=== PATIENT | female | born 1940 | race Caucasian/White ===

== ENCOUNTER 2021-09-26 08:55 | Outpatient (REF) | payer MEDICARE, SELFPAY ==
[2021-09-26 11:08] LABS: Hemoglobin 14.9 g/dl (12.0-16.0); Mean Corpuscular HGB Conc 33.1 g/dl (31.0-35.0); Mean Corpuscular Hemoglobin 30.7 pg (27.0-33.0); Mean Corpuscular Volume 92.8 fL (80.0-98.0); Mean Platelet Volume 10.7 fL (9.4-12.3); Platelet Count 236 X10*3/uL (160-400); Red Blood Count 4.85 X10*6/uL (4.20-5.50); Red Cell Distribution Width 13.9 % (11.0-16.0); White Blood Count 5.5 X10*3/uL (4.8-10.8)
[2021-09-26 11:44] LABS: Alanine Aminotransferase 28 U/L (0-31); Albumin Level 4.1 g/dL (3.5-5.0); Alkaline Phosphatase 80 U/L (39-117); Anion Gap 14 (12-20); Aspartate Amino Transferase 28 U/L (5-31); Bilirubin Total 0.5 mg/dL (0.0-1.0); Blood Urea Nitrogen 20 mg/dL (9-16); Calcium 9.9 mg/dL (8.4-10.2); Carbon Dioxide 27 mmol/L (22-29); Chloride 107 mmol/L (96-108); Estimated Glomerular Filt Rate > 60; Glucose Random 90 mg/dL (60-115); Potassium 4.1 mmol/L (3.3-5.1); Sodium 144 mmol/L (135-145)
[2021-09-26 12:06] LABS: Vitamin D 25-OH Total 16.5 ng/mL (>30)
== END 2021-09-26 08:56 | disposition home or self-care (01) ==
LOC: HO.MANLDS 08:55
PROVIDERS: PCP Internal Medicine; Visit Provider Internal Medicine
DX: I10 Essential (primary) hypertension (principal)
CPT/HCPCS: 36415; 80053; 82306; 85027

== ENCOUNTER 2022-11-14 09:49 | Outpatient (REF) | payer MEDICARE, SELFPAY ==
[2022-11-14 11:38] LABS: Hematocrit 42.3 % (37.0-47.0); Mean Corpuscular HGB Conc 33.1 g/dl (31.0-35.0); Mean Corpuscular Hemoglobin 30.6 pg (27.0-33.0); Mean Corpuscular Volume 92.4 fL (80.0-98.0); Mean Platelet Volume 11.4 fL (9.4-12.3); Platelet Count 227 X10*3/uL (160-400); Red Blood Count 4.58 X10*6/uL (4.20-5.50); Red Cell Distribution Width 14.4 % (11.0-16.0); White Blood Count 6.2 X10*3/uL (4.8-10.8)
[2022-11-14 12:21] LABS: Alanine Aminotransferase 24 U/L (0-31); Alkaline Phosphatase 65 U/L (39-117); Anion Gap 12 (12-20); Aspartate Amino Transferase 25 U/L (5-31); Bilirubin Total 0.6 mg/dL (0.0-1.0); Blood Urea Nitrogen 20 mg/dL (9-16); Calcium 9.7 mg/dL (8.4-10.2); Carbon Dioxide 31 mmol/L (22-29); Chloride 106 mmol/L (96-108); Estimated Glomerular Filt Rate > 60; Glucose Random 85 mg/dL (60-115); Sodium 144 mmol/L (135-145); Total Protein 6.7 g/dL (6.5-8.0)
[2022-11-14 12:23] LABS: Thyroid Stimulating Hormone 1.53 uIU/mL (0.32-4.0); Vitamin D 25-OH Total 25.6 ng/mL (>30)
== END 2022-11-14 09:50 | disposition home or self-care (01) ==
LOC: HO.MANLDS 09:49
PROVIDERS: Visit Provider Internal Medicine
DX: I10 Essential (primary) hypertension (principal); E55.9 Vitamin D deficiency, unspecified
CPT/HCPCS: 36415; 80053; 82306; 84443; 85027

== ENCOUNTER 2023-01-18 08:34 | Outpatient (REF) | payer MEDICARE, SELFPAY ==
--- NOTE | ~2023-01-18 | MM_ITS ---
EXAMINATION: BONE DENSITOMETRY CLINICAL INDICATION: Osteopenia. COMPARISON: This is the patient's baseline examination. TECHNIQUE: Using a [employer] DXA System (software version: 13.1) manufactured by [employer], dual-energy x-ray absorptiometry was performed of the lumbar spine and left hip. The images are of good technical quality. Summary results are attached. FINDINGS: AP SPINE L1-L4: BMD 1.112 g/cm2, Z-score 0.7, T-score -0.6, normal. LEFT FEMUR, NECK: BMD 0.796 g/cm2, Z-score 0.2, T-score -1.7, osteopenia. LEFT FEMUR, TOTAL: BMD 0.821 g/cm2, Z-score 0.3, T-score -1.5, osteopenia. IDENTIFIED RISK FACTORS: Menopause, height loss. HISTORY OF FRACTURE: None listed. MEDICATIONS: Calcium, vitamin D. MM/XR DEXA axial skeleton IMPRESSION: 1. DIAGNOSIS: Osteopenia based on the lowest T-score value of -1.7 in the femoral neck applying World Health Organization criteria. 2. 10-YEAR FRACTURE RISK PREDICTION, FRAX: Major osteoporotic fracture (clinical spine, forearm, hip or shoulder) 14.1%. Hip fracture 3.9%. 3. Treatment Recommendations: NOF guidelines recommend consideration for treatment in postmenopausal women and men age 50 and older presenting with the following: -A hip or vertebral (clinical or morphometric) fracture. -T-score less than or equal to -2.5 at the femoral neck or spine after appropriate evaluation to exclude secondary causes. -Low bone mass at the hip or spine and a 10-year fracture probability by FRAX of greater than or equal to 3% for hip fracture or greater than or equal to 20% for major osteoporotic fracture based on the [place] adapted WHO algorithm. 4. Other Recommendations: All treatment decisions require clinical judgment and consideration of individual patient factors, including patient preferences, comorbidities, previous drug use, risk factors not captured in the FRAX model (e.g. frailty, falls, vitamin D deficiency, increased bone turnover, interval significant decline in bone density) and possible under or overestimation of fracture risk by FRAX. Additional medical evaluation for secondary cause of low bone mineral density may be appropriate. FUTURE SCAN RECOMMENDATION: People with diagnosed cases of osteoporosis or at high risk for fracture should have regular bone mineral density tests. For patients eligible for Medicare, routine testing is allowed once every 2 years. The testing frequency can be increased to one year for patients who have rapidly progressing disease, those who are receiving or discontinuing medical therapy to restore bone mass, or have additional risk factors.
== END 2023-01-18 08:35 | disposition home or self-care (01) ==
LOC: HO.MAMMO 08:34
PROVIDERS: PCP Internal Medicine; Visit Provider Internal Medicine
DX: Z13.820 Encounter for screening for osteoporosis (principal); Z78.0 Asymptomatic menopausal state; M85.80 Other specified disorders of bone density and structure, unspecified site
CPT/HCPCS: 77080

== ENCOUNTER → 2023-01-28 09:34 | Outpatient (REF) | payer MEDICARE, SELFPAY ==
--- NOTE | 2023-01-28 09:40 | CA_ITS ---
Transthoracic Echocardiogram Patient (Last, First, Middle): Kathi Chan M Gender: Female Date of : 1940 Age: 82 Procedure Date: 01/28/2023 Procedure Type: Transthoracic Echocardiogram Location: OP Height: 162.56 cm Weight: 82.56 kg BSA: 1.88 m2 Heart Rate: 63 bpm BP: 135 / 80 mmHg Employee Development Manager: KWAME Referring MD: Ranjit Stephens MD Symptoms: R06.09 DYSPNEA Study Quality: Adequate ECG Rhythm: Sinus Conclusions: - The left ventricular systolic function is normal. The visually estimated ejection fraction is between 60-65%. - There is moderate calcification of the aortic valve. There is mild to moderate aortic valve stenosis. - There is mild mitral valve regurgitation. Findings Left Ventricle Normal left ventricular cavity size. The left ventricular systolic function is normal. The visually estimated ejection fraction is between 60-65%. There is no evidence of regional wall motion abnormalities. E/E prime ratio is between 8 and 15 consistent with indeterminate filling pressures. Evidence suggests grade I (mild) diastolic dysfunction. There is moderate septal and moderate basal asymmetric hypertrophy. LV peak GLS -19.9%. Right Ventricle Normal right ventricular cavity size and systolic function. Atria Both atria are normal in size. Aortic Valve There is moderate calcification of the aortic valve. There is mild to moderate aortic valve stenosis. The mean gradient is 12 mmHg. The aortic valve area is 1.35 cm2. There is mild aortic valve regurgitation. Mitral Valve There is mild mitral annular calcification. There is mild mitral valve regurgitation. There is no mitral valve stenosis. Pulmonic Valve The pulmonic valve is likely normal. Tricuspid Valve There is mild tricuspid valve regurgitation. There is no evidence of pulmonary hypertension. Great Vessels The asc aorta is normal in size. Venous The inferior vena cava is normal in size and collapses greater than 50% with inspiration. Pericardium/Pleural There is no evidence of pericardial effusion. Prior Study Comparison No prior study available for comparison. Measurements 2D Linear Measurements IVSd: 1.22 0.6-0.9/0.6-1.0 cm LVIDd: 4.77 3.9-5.3/4.2-5.9 cm LVIDd Index: 2.54 2.4-3.2/2.2-3.1 cm/m2 LVIDs: 2.86 2.0-3.6 cm LVPWd: 1.02 0.7-1.1 cm LA Diam: 3.60 2.7-3.8/3.0-4.0 cm LAIDs Index: 1.91 1.5-2.3 cm/m2 LV Mass: 245.38 67-162/88-224 g LV Mass Index: 130.52 43-95/49-115 g/m2 LVOT Diam: 1.70 3.0+(-)1.3 cm 2D Systolic Function EF 4C: 63.30 >55% EF 2C: 72.50 >55% EF BiP: 69.90 >55% Mitral Valve MV Pk E: 0.85 MV PK A: 1.36 MV Decel Time: 286.00 E/A: 0.60 E'Lateral: 5.44 E'Medial: 5.77 E/E' Med: 14.70 E/E' Lat: 15.60 PHT: 84.00 MVA PHT: 2.62 Decel Gall[place]: 2.95 MR Alias Arnel: 0.39 MR RAD: 0.30 Aortic Valve AoV Pk Arnel: 2.28 AoV Mn Arnel: 1.67 AoV VTI: 0.58 AoV Pk Grad: 21.00 Aov Mn Grad: 12.00 MAX Cont.VTI: 1.35 AI Pk Arnel: 4.19 AI Gallatin: 2.64 LVOT LVOT Pk Arnel: 1.35 LVOT Mn Arnel: 0.94 LVOT VTI: 0.34 LVOT Pk Grad: 7.00 LVOT Mn Grad: 4.00 LVOT Diam: 1.70 LVOT Area: 2.27 Diastolic Function MV Pk E: 0.85 MV Pk A: 1.36 E/A: 0.60 E'Medial: 5.77 E/E' Med: 14.70 E' Laterial: 5.44 E/E' Lat: 15.60 Right Ventricle TAPSE (mm): 30.00 TVS' Arnel: 12.30 Tricuspid Valve TR Pk Arnel: 2.45 TR Pk Grad: 24.00 RA Press: 3.00 RVSP: 27.00 Great Vessels Aorta Sinus of Valsalva: 3.60 2.0-3.5 cm Ao Asc: 3.50 2.1-3.4 cm Pulmonary Valve PV Pk Arnel: 1.05 Peak PV Grad: 4.00 Updated in Other Vendor System with Status of Final Edgardo Joy MD electronically signed on 01/28/2023 2:40:13 PM with status of Final
== END ==
LOC: HO.CARD 09:34
PROVIDERS: PCP Internal Medicine; Visit Provider Internal Medicine
DX: R06.09 Other forms of dyspnea (principal)
CPT/HCPCS: 93306; 93356

== ENCOUNTER 2024-04-20 11:59 | Outpatient (REF) | payer MEDICARE, SELFPAY ==
[2024-04-20 17:56] LABS: Uric Acid 5.8 mg/dL (2.4-5.7)
== END 2024-04-20 12:00 | disposition home or self-care (01) ==
LOC: HO.MANLDS 11:59
PROVIDERS: Visit Provider Physician Assistant
DX: M10.072 Idiopathic gout, left ankle and foot (principal)
CPT/HCPCS: 36415; 84550

== ENCOUNTER 2024-08-28 09:13 | Outpatient (AMB) | payer MEDICARE, SELFPAY ==
--- OUTSIDE RECORDS SUMMARY | 2024-08-28 09:16 | XMS_ITS ---
Author Organization [facility] Address [address] [place] [address] Care Team Providers Care Contract Administrator Name Role Phone Ranjit Stephens MD Primary Care Provider Marciano Unger [phone] REASON FOR VISIT rs appt 08/31 Encounters Encounter Location Date Provider Diagnosis [address] [address] 05/22/2024 Marciano Mane Plan Of Treatment Next Appt Details Provider Name:Marciano Mane , 09/01/2024 08:45:00 AM, [address] [place], [address], Progress Notes * Anup HEBERTOB:1940 ([age] yo F)Acc No.[id number]:05/22/2024 Patient:?Kathi Hebert :1940???Age:84 Y???Sex:Female Address:[address] , [address], [place], [address] * true * Date:? Generated for Printi ng/Faxing/eTransmitting on:?08/28/2024 09:16 AM EST
--- OUTSIDE RECORDS SUMMARY | 2024-08-28 09:17 | XMS_ITS ---
[facility] Address [address] [place] [address] Care Team Providers Care Hand Binder Cutter Name Role Phone Ranjit Stephens MD Primary Care Provider Marciano Unger Unavailable [phone] Hernandez Jones Unavailable [phone] Allergies No Known Allergies REASON FOR VISIT PCP - 01/2024, Wart(s), Ingrown nail(s) Medications Medication SIG (Take, Route, Frequency, Duration) Notes Start Date End Date Status Dilt-CD diltiazam Not-Taking Diclofenac Not-Takin g Benadryl Allergy 25 MG 1 tablet at bedti me as needed Orally Once a day for 30 day(s) Not-Taking Physical Therapy . . . 2-3x/week for 3- 4 weeks Not-Taking Omeprazole 20 MG 1 capsule 30 minutes before morning meal Orally Once a day for 30 day(s) Not-Taking Night Splint AFO - L1930 as directed Not-Taking Cephalexin 500 MG 1 capsule Orally every 8 hrs for 10 days 01/28/2023 Not-Taking Simvastatin 20 MG as directed Orally Once a day Active eliquis 5 mg as directed Activ e Carvedilol 25 MG 1 tablet with food Orally three a day Active Triamterene-HCTZ 37.5-25 MG 1 tablet in the morning Orally Once a day for 30 day(s) Active Flecainide Acetate A ctive Social History Tobacco Use: Social History Observation Description Date Details (start date - stop date) Never Smoker NA - NA Tobacco Use/Smoking Question Answer Notes Are you a: nonsmoker Additional Findings: Tobacco Non-User Current no n-smoker Alcohol Screen Question Answer Notes Did you have a drink containing alcohol in the p ast year? No Points 0 Interpretation Negative Tobacco use other than smoking: Question Answer Notes Are you an other tobacco user? 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 Assessments Encounter Date Diagnosis (ICD Code) Assessment Notes Treatment Notes Treatment Clinical Notes Section Notes 02/19/2024 Pain in left foot (ICD-10 - M79.672) 02/19/2024 Tinea unguium (ICD-10 - B35.1) 02/19/2024 Pain in right toe(s) (ICD-10 - M79.674) 02/19/2024 Pain in left toe(s) (ICD-10 - M79.675) 02/19/2024 Ingrowing nail (ICD-10 - L60.0) 02/19/2024 Localized edema (ICD-10 - R60.0) 02/19/2024 Other viral warts (ICD-10 - B07.8) 02/19/2024 Pain in right foot (ICD-10 - M79.671) 02/19/2024 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) Plan Of Treatment Next Appt Details Follow Up: prn, Reason: Provider Name:Marciano Mane , 09/01/2024 08:45:00 AM, [address] [place], [address], Procedure Notes * Category Sub-Category Detail Notes Wart Treatment Procedure Verrucae(s) were debrided to pin-point bleeding margins with sterile surgical blade (88535), silver nitrate chemocautery applied Nail Avulsion Procedure A fine sterile e levator was used to loosen the eponychium, nail bed, nail plate and groove. A sterile nail splitter was then used to longitudinally section the nail. This section was removed. No underlying bone was identified. Procedure was performed under. Bacitracin and sterile dressings applied, local wound care instructions were dispensed. Patient was informed of both conservative and future surgical procedures to prevent recurrence Anesthesia was deferred - PT AB SOLUTELY REFUSES - tolerant to pain without issue/complication Location Medial nail border, T2 Progress Notes * Anup HEBERTOB:1940 ([age] yo F)Acc No.[id number]:02/19/2024 Progress Note Patient:?Kathi Hebert Provider:?Hernandez Jones DPM :1940???Age:83 Y???Sex:Female D ate:02/19/2024 Address:[address] [place] [address] , [address], [facility] Pcp:Ranjit Stephens MD Subjective: * Chief Complaints: * ???PCP - 01/2024Wart(s)Ingro wn nail(s) * HPI: ???Heel pain:?Nature:?tenderness.?Location:?Proximal plantar aspect of Heel, LEFT.?Duration:?several months .?Onset/Cause:?unknown, denies trauma.?Course:?improved.?Aggrevated:?walking first thing in the morning/after rest.?Severity/Quality:?considered 1 out of 10.?Ankle Pain:?Nature:?swelling, tenderness.?Location:?B/L ankles and lower legs.?Onset/Cause:?gradual--afib.?Treatments:?xrays from [facility] 05/23/23 shows mild swelling without arthritis .?Severity/Quality:?mild, moderate.?Skin problems:?Nature:?tender, throbbing, dryness, discolored.?Location:?Right , 1st.?Duration:?several months.?Course:?worse.?Aggravated by:?any pressure, shoe gear.?Treatments:?self care.?Severity/Quality:?moderate, severe.?Wart:?Pt States Last PCP Visit:?Date:?05/19/2023 * ROS:?General/Constitutional:?Nausea?denies.?Vomiting?denies.?Hunger Thirst?denies.?Loss appetite?denies.?Chills?denies.?Fatigue?denies.?Fever?denies.?Night Sweats?denies.?Unexplained weight loss?denies.?Unexplained weight gain?denies.?HEENTM:?Dentures?denies.?Dizziness?denies.?Glasses/contacts?denies.?Retinopathy?de nies.?Blurred/double vision?denies.?TMJ?denies.?Discharge/drainage?denies.?Implants?denies.?Sore throat?denies.?Dental implants?denies.?Hard of hearing ?denies.?Difficulty chewing/swallowing/speaking?denies.?Nose bleeds?denies.?Sore mouth?denies.?Respiratory:?On Oxygen?denies.?Pneumonia/pleurisy?denies.?Bronchitis?denies.?Emphysema?denies.?C oughing?denies.?Cough blood?denies.?Shortness of breath?denies.?Wheezing?denies.?Cardiovascular:?Pacemaker?denies.?MVP?denies.?WPW?denies.?CHF?denies.?Heart attack?denies.?Septal defect?denies.?Rapid beat?denies.?Chest pain ?denies.?Atrial Fib.?admits.?Murmur/Palpitations?denies.?Gastrointestinal:?Hemorrhoids?denies.?Stomach/Abdominal pain?denies.?Dark blood stool?denies.?Irritable bowel ?denies.?Constipation?denies.?Diarrhea?denies.?Hematology:?Swelling?admits.?Clots?denies.?Varicose Veins?denies.?Bruising?denies.?Bleeding problem?denies.?Genitourinary:?Blood urine?denies.?Frequent/Painfu/urination/bladder control?denies.?Kidney stones?denies.?Infection (UTI)?denies.?Nephropathy?denies.?sex trans dis (STD)?denies.?Prostate?denies.?Musculoskeletal:?Hammertoes?denies.?Bunions?denies.?Back Pain?denies.?Muscle Cramps/ Resting?denies.?Muscle cramps / walking?denies.?Generalized aches and pains?denies.?Weakness?denies.?Integ.:?Chow?denies.?Scars?denies.?Corns/calluses?denies.?Ingrown nails?admits.?Painful nails?admits.?Open Sores?denies.?Rashes?denies.?Neurologic:?Difficulty sleeping?admits.?Brain disorder?denies.?Numbness?denies.?Balance trouble?denies.?Confusion?denies.?Fainting/blackouts?denies.?Tingling?denies.?Tr emors?denies.? * Medical History:? * Surgical History:?colonoscop y * Hospitalization/Major Diagno stic Procedure:?[facility]-Afib few hrs 2[facility]- Afib 10/2023 * Family History:?Mother: dece ased.?Father: , cancer.? * Social History:?Tobacco Use:?Tobacco Use/Smoking?Are you a:?nonsmoker ?Additional Findings: Tobacco Non-User?Current non-smoker ?Tobacco use other than smoking?Are you an other tobacco user??No ???Drugs/Alcohol:?Drugs?Have you used drugs other than those for medical reasons in the past 12 months??No ?Alcohol Screen?Did you have a drink containing alcohol in the past year??No ?Points?0 ?Interpretation?Negative ???Miscellaneous:?Caffeine: yes, frequency: 1-2 cups per day coffee, herbal tea occassionally. ?Children: yes, 1. ?Exercise: yes, walking. ?Marital status: . 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 * Medications:?TakingFlecainid e Acetate Triamterene-HCTZ 37.5-25 MG Tablet 1 tablet in the morning Orally Once a dayCarvedilol 25 MG Tablet 1 tablet with food Orally three a dayeliquis 5 mg Tablet as directed Simvastatin 20 MG Tablet as directed Orally Once a dayTaking Flecainide Acetate Taking Triamterene-HCTZ 37.5-25 MG Tablet 1 tablet in the morning Orally Once a dayTaking Carvedilol 25 MG Tablet 1 tablet with food Orally three a dayTaking eliquis 5 mg Tablet as directed Taking Simvastatin 20 MG Tablet as directed Orally Once a dayNot-Taking/PRNCephalexin 500 MG Capsule 1 capsule Orally every 8 hrsNight Splint AFO - L1930 as directed Diclofenac Dilt-CD , Notes: diltiazamPhysical Therapy . . . . 2-3x/weekBenadryl Allergy 25 MG Tablet 1 tablet at bedtime as needed Orally Once a dayOmeprazole 20 MG Capsule Delayed Release 1 capsule 30 minutes before morning meal Orally Once a dayMedication List reviewed and reconciled with the patientNot-Taking/PRN Cephalexin 500 MG Capsule 1 capsule Orally every 8 hrsNot-Taking/PRN Night Splint AFO - L1930 as directed Not-Taking/PRN Diclofenac Not-Taking/PRN Dilt-CD , Notes: diltiazamNot-Taking/PRN Physical Therapy . . . . 2-3x/weekNot-Taking/PRN Benadryl Allergy 25 MG Tablet 1 tablet at bedtime as needed Orally Once a dayNot-Taking/PRN Omeprazole 20 MG Capsule Delayed Release 1 capsule 30 minutes before morning meal Orally Once a dayMedication List reviewed and reconciled with the patient * Allergies:?N.K.D.A.yes[Aller gies Verified] Objective: * Vitals:?Ht: 5ft 2.5in, Wt:17 2, BMI:30.95, Shoe size:8.5-9, BP:120/80 mm Hg. * Examination: ???General Examination: ?GENERAL APPEARANCE:?pleasant, alert, well nourished, well developed, well hydrated, with good attention to hygene/body habitus, and in no acute distress.?ORIENTED:?person,place, and time.?Neurological: ?SENSORY:?Neurological exam reveals intact sensorium, pain sensation normal, vibration sensation intact, pinprick sensation is normal in the lower extremities, pt denies, anesthesia, burning, paresthesia, tingling, B/L, Neurological exam demonstrates pop alia medial distal tibia soft tissue superior to ankles and no pop or rom alia ankles or stj's.?TINEL'S COMPRESSION:?Negative tarsal tunnel, tesfaye pedis, and medial calcaneal nerves, B/L.?BABINSKI REFLEX:?Absent, B/L.?Vascular: ?DP PULSES:? 09/19, B/L.?PT PULSES:? 09/19, B/L.?CAPILLARY FILL TIME:?3 secs. per digit, B/L.?SKIN TEMPERTURE GRADIENT OF THE LOWER EXTERMITIES:?warm to cool, proximal to distal, B/L.?HAIR GROWTH/TEXTURE/ELASTICITY/TURGOR:?normal, B/L.?EDEMA:? /, Left, 09/19, Right, Leg(s) with no edema of foot noted.?Dermatologic: ?SKIN FINDINGS:?Skin exam reveals normal texture, elasticity, and tugor. There are no masses. The interspaces are clear.?VERRUCA:? Reveals a Single , multi-loculated , mosaic-patterned, round, raised, flat-topped, petechial bleeding papule(s), with cauliflower appearance and interruption of skin lines, pain to lateral compression, and size estimated at __2_ mm diameter, RIGHT--distal hallux.?Orthopedic: ?MUSCLE STRENGTH:?5/5 all groups in a symmetrical fashion B/L.?GAIT ABNORMALITY:?pronated, abducted, B/L.?Nails: ?NAILS are:?Elongated, overgrown, dystrophic, lytic, greater than 3mm thick, discolored and friable with crumbly malodorous subungual debris, with pain on palpation, 1,2 B/L; with subungual keratoma distal medial t5 with mild pop.?Ingrown Nail: ?INSPECTION:? Reveals nail incurvation, pain on palpation, groove hypertrophy, groove ischemia, Medial nail border, T2.? Assessment: * Assessment: 1.?Tinea unguium - B35.1?2.? 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 Plan: * Treatment: * Procedures:?Nail Avulsion:?Location?Medial nail border, T2.?Anesthesia?was deferred - PT ABSOLUTELY REFUSES - tolerant to pain without issue/complication.?Procedure?A fine sterile elevator was used to loosen the eponychium, nail bed, nail plate and groove. A sterile nail splitter was then used to longitudinally section the nail. This section was removed. No underlying bone was identified. Procedure was performed under. Bacitracin and sterile dressings applied, local wound care instructions were dispensed. Patient was informed of both conservative and future surgical procedures to prevent recurrence.?Wart Treatment:?Procedure?Verrucae(s) were debrided to pin-point bleeding margins with sterile surgical blade (67280), silver nitrate chemocautery applied.? * Procedure Codes:?51234 Avuls ion Plate, Modifiers: T2 12655 Wart Destruction, 1- 14, Modifiers: XS * Follow Up:?prn * Images: * Sign off status: Completed true * Provider:?Hernandez Jones DPM Date:? 024 Generated for Anam monge/Chalo/Wallace on:?08/28/2024 09:16 AM EST History and Physical Notes * HPI (History of Present Illness) Category Sub-Category Detail Notes Category Not es Heel pain Duration: several months Nature: tenderness Severity/Quality: considered 1 out of 10 Location: Proximal plantar asp ect of Heel, LEFT Onset/Cause: unknown, denies trau ma Aggravated: walking first thing in the morning/after rest Course: improved Ankle Pain Nature: swelling, tenderness Severity/Quality: mild, moderate Treatments: xrays from [facility] 3 shows mild swelling without arthritis Location: B/L ankles and lower legs Onset/Cause: gradual--afib Wart Pt States Last PCP Visit: Date:: 05/19/2023 Skin problems Nature: tender, throbbing, dryness, discolored Location: Right , 1st Duration: several months Course: worse Aggravated by: any pressure, shoe g ear Treatments: self care Severity/Quality: moderate, severe Examination Category Sub-Category Detail Notes Category Not es Ingrown Nail INSPECTION: Reveals nail inc urvation, pain on palpation, groove hypertrophy, groove ischemia, Medial nail border, T2 Neurological SENSORY: Neurological exa m reveals intact sensorium, pain sensation normal, vibration sensation intact, pinprick sensation is normal in the lower extremities, pt denies, anesthesia, burning, paresthesia, tingling, B/L, Neurological exam demonstrates pop alia medial distal tibia soft tissue superior to ankles and no pop or rom alia ankles or stj's BABINSKI REFLEX: Absent, B/L TINEL'S COMPRESSION: Negative tarsal yomi butch, tesfaye pedis, and medial calcaneal nerves, B/L Dermatologic SKIN FINDINGS: Skin exam reveal s normal texture, elasticity, and tugor. There are no masses. The interspaces are clear VERRUCA: Reveals a Single , m ulti-loculated , mosaic-patterned, round, raised, flat-topped, petechial bleeding papule(s), with cauliflower appearance and interruption of skin lines, pain to lateral compression, and size estimated at __2_ mm diameter, RIGHT--distal hallux Orthopedic GAIT ABNORMALITY: pronated, abducted, B/L MUSCLE STRENGTH: 5/5 all groups in a symmetrical fashion B/L General Examination GENERAL APPEARANCE: pleasant , alert, well nourished, well developed, well hydrated, with good attention to hygene/body habitus, and in no acute distress ORIENTED: person,place, and ti me Vascular DP PULSES(B): 09/19, B/L PT PULSES(B): 09/19, B/L CAPILLARY FILL TIME: 3 secs. per digit, B/L TEMPERTURE GRADIENT(C): warm to cool, pr oximal to distal, B/L TROPHIC CONDITION-TEXTURE/ELASTICITY/TURGOR/HAIR GROWTH(B): normal, B/L EDEMA(C): 2/4, Left, 1/4, Righ t, Leg(s) with no edema of foot noted Nails NAILS are: Elongated, overg rown, dystrophic, lytic, greater than 3mm thick, discolored and friable with crumbly malodorous subungual debris, with pain on palpation, 1,2 B/L; with subungual keratoma distal medial t5 with mild pop
--- OUTSIDE RECORDS SUMMARY | 2024-08-28 09:17 | XMS_ITS ---
[facility] Address [address] [place] [address] Care Team Providers Care Hospital Laboratory Technician Name Role Phone Ranjit Stephens MD Primary Care Provider UnavailMarciano Villegas Unavailable [phone] Hernandez Jones Unavailable [phone] Allergies No Known Allergies REASON FOR VISIT Wart(s), Ingrown nail(s) Medications Medication SIG (Take, Route, Frequency, Duration) Notes Start Date End Date Status Cephalexin 500 MG 1 capsule Orally every 8 hrs for 10 days 01/28/2023 Not-Taking Triamterene-HCTZ 37.5-25 MG 1 tablet in the morning Orally Once a day for 30 day(s) Active Carvedilol 12.5 MG 1 tablet with food Orally Twice a day Active eliquis 5 mg as directed Activ e Simvastatin 20 MG as directed Orally Once a day Active Dilt-CD diltiazam Not-Taking Physical Therapy . . . 2-3x/week for 3- 4 weeks Not-Taking Benadryl Allergy 25 MG 1 tablet at bedti me as needed Orally Once a day for 30 day(s) Not-Taking Flecainide Acetate A ctive Omeprazole 20 MG 1 capsule 30 minutes before morning meal Orally Once a day for 30 day(s) Not-Taking Night Splint AFO - L1930 as directed Not-Taking Diclofenac Not-Takin g Social History Tobacco Use: Social History Observation [...] No Vital Signs Height 5ft 2.5in in 05/21/2024 Weight 172 lbs 05/21/2024 BMI 30.95 kg/m2 05/21/2024 Blood pressure systolic 120 mm Hg 05/21/20 24 Blood pressure diastolic 80 mm Hg 024 Encounters Encounter Location Date Provider Diagnosis [facility] [place] [address] [place] [address] 05/21/2024 Hernandez Jones Pain in left foot M79.672 [...] Treatment Notes Treatment Clinical Notes Section Notes 05/21/2024 Pain in left foot (ICD-10 - M79.672) 05/21/2024 Tinea unguium (ICD-10 - B35.1) 05/21/2024 Pain in right toe(s) (ICD-10 - M79.674) 05/21/2024 Pain in left toe(s) (ICD-10 - M79.675) 05/21/2024 Ingrowing nail (ICD-10 - L60.0) 05/21/2024 Localized edema (ICD-10 - R60.0) 05/21/2024 Other viral warts (ICD-10 - B07.8) 05/21/2024 Pain in right foot (ICD-10 - M79.671) 05/21/2024 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) Plan Of Treatment Next Appt Details Follow Up: 3 Months, Reason: Provider Name:Marciano Mane , 09/01/2024 08:45:00 AM, [address] [place], [address], Procedure Notes * Category Sub-Category Detail Notes Wart Treatment Procedure Verrucae(s) were debrided to pin-point bleeding margins with sterile surgical blade (18413), silver nitrate chemocautery applied Nail Avulsion Procedure [...] - tolerant to pain without issue/complication Location Lateral nail border, TA Progress Notes * Anup HEBERTOB:1940 ([age] yo F)Acc No.[id number]:05/21/2024 Progress Note Patient:?RocioMeryan Provider:?Hernandez Jones DPM :1940???Age:84 Y???Sex:Female D ate:05/21/2024 Address:[address] [place], [place] [address] , [address], [facility] Pcp:Ranjit Stephens MD Subjective: * Chief Complaints: * ???Wart(s)Ingrown nail(s) * HPI: ???Heel pain:?Nature:?tenderness.?Location:?Proximal plantar aspect of Heel, LEFT.?Duration:?several months .?Onset/Cause:?unknown, denies trauma.?Course:?improved.?Aggravated:?walking first thing in the morning/after rest.?Severity/Quality:?considered 1 out of 10.?Ankle Pain:?Nature:?swelling, tenderness.?Location:?B/L ankles and lower legs.?Onset/Cause:?gradual--afib.?Treatments:?xrays from [facility] 05/23/23 shows mild swelling without arthritis .?Severity/Quality:?mild, moderate.?Skin problems:?Nature:?tender, throbbing, dryness, discolored.?Location:?Right , 1st.?Duration:?several months.?Course:?worse.?Aggravated by:?any pressure, shoe gear.?Treatments:?self care.?Severity/Quality:?moderate, severe.?Wart:?Pt States Last PCP Visit:?Date:?01/15/2024 * ROS:?General/Constitutional:?Nausea?denies.?Vomiting?denies.?Hunger Thirst?denies.?Loss appetite?denies.?Chills?denies.?Fatigue?denies.?Fever?denies.?Night Sweats?denies.?Unexplained weight loss?denies.?Unexplained [...] yes, walking. ?Marital status: . 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 * Medications:?TakingFlecainid e Acetate Triamterene-HCTZ 37.5-25 MG Tablet 1 tablet in the morning Orally Once a dayCarvedilol 12.5 MG Tablet 1 tablet with food Orally Twice a dayeliquis 5 mg Tablet as directed Simvastatin 20 MG Tablet as directed Orally Once a dayTaking Flecainide Acetate Taking Triamterene-HCTZ 37.5-25 MG Tablet 1 tablet in the morning Orally Once a dayTaking Carvedilol 12.5 MG Tablet 1 tablet with food Orally Twice a dayTaking eliquis 5 mg Tablet as directed Taking Simvastatin 20 MG Tablet as directed Orally Once a dayNot-Taking/PRNCephalexin 500 MG Capsule 1 capsule Orally every 8 hrsNight Splint AFO - L1930 as directed Diclofenac Dilt- CD , Notes: diltiazamPhysical Therapy . . . . 2-3x/weekBenadryl Allergy 25 MG Tablet 1 tablet at bedtime as needed Orally Once a dayOmeprazole 20 MG Capsule Delayed Release 1 capsule 30 minutes before morning meal Orally Once a dayMedication List reviewed and reconciled with the patientNot-Taking/PRN Cephalexin 500 MG Capsule 1 capsule Orally every 8 hrsNot-Taking/PRN Night Splint AFO - L1930 as directed Not- Taking/PRN Diclofenac Not-Taking/PRN Dilt-CD , Notes: diltiazamNot-Taking/PRN Physical [...] cool, proximal to distal, B/L.?HAIR GROWTH/TEXTURE/ELASTICITY/TURGOR:?normal, B/L.?EDEMA:? 10/20, Left, 09/19, Right, Leg(s) with no edema [...] distal medial t5 with mild pop.?Ingrown Nail: ?INSPECTION:?Reveals nail incurvation, pain on palpation, groove hypertrophy, groove ischemia, Lateral nail border, TA.? Assessment: * Assessment: 1.?Tinea unguium - B35.1?2.? 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 Plan: * Treatment: * Procedures:?Nail Avulsion:?Location?Lateral nail border, TA.?Anesthesia?was deferred - PT ABSOLUTELY REFUSES - tolerant [...] pin-point bleeding margins with sterile surgical blade (67170), silver nitrate chemocautery applied.? * Procedure Codes:?38230 Avuls ion Plate, [place]: [place] [address] Wart Destruction, 1- 14, Modifiers: XS * Follow Up:?3 Months * Images: * Sign off status: Completed true * Provider:?Hernandez Jones DPM Date:? 024 Generated for Anam monge/Chalo/Carlos Manuelitting on:?08/28/2024 09:16 AM EST History and Physical [...] Wart Pt States Last PCP Visit: Date:: 01/15/2024 Skin problems Nature: tender, throbbing, dryness, discolored Location: Right , 1st Duration: several months Course: worse Aggravated by: any pressure, shoe g ear Treatments: self care Severity/Quality: moderate, severe Examination Category Sub-Category Detail Notes Category Not es Ingrown Nail INSPECTION: Reveals nail inc urvation, pain on palpation, groove hypertrophy, groove ischemia, Lateral nail border, TA Neurological SENSORY: Neurological exa m reveals intact [...] person,place, and ti me Vascular DP PULSES(B): 1/4, B/L PT PULSES(B): 1/4, B/L CAPILLARY FILL TIME: 3 secs. per [...]
--- OUTSIDE RECORDS SUMMARY | 2024-08-28 09:17 | XMS_ITS | Patient Health Record ---
Author Organization [facility] eliana Burr Address [address] [place] [address] Care Team Providers Care Sheet Metal Mechanic Name Role Phone Ranjit Stephens MD Primary Care Provider UnavailMarciano Villegas Unavailable [phone] Black, Sylvia Unavailable [phone] Hernandez Jones Unavailable [phone] Allergies No Known Allergies Reason For Referral No Information Medications Medication SIG (Take, Route, Frequency, Duration) Notes Start Date End Date Status Cephalexin 500 MG 1 capsule Orally every 8 hrs for 10 days 01/28/2023 Not-Taking Night Splint AFO - L1930 as directed Not-Taking Diclofenac Not-Takin g Dilt-CD diltiazam Not-Taking Physical Therapy . . . 2-3x/week for 3- 4 weeks Not-Taking Benadryl Allergy 25 MG 1 tablet at bedti me as needed Orally Once a day for 30 day(s) Not-Taking Flecainide Acetate A ctive Omeprazole 20 MG 1 capsule 30 minutes before morning meal Orally Once a day for 30 day(s) Not-Taking Triamterene-HCTZ 37.5-25 MG 1 tablet in the morning Orally Once a day for 30 day(s) Active Carvedilol 12.5 MG 1 tablet with food Orally Twice a day Active eliquis 5 mg as directed Activ e Simvastatin 20 MG as directed Orally Once a day Active Immunizations Vaccine Route Administration Date Status Comme nts COVID-19 Moderna Vaccine Unknown 07/17/2021 Administered 1st 10/17/20 2nd 11/14/20 Social History Tobacco Use: Social History Observation [...] Are you an other tobacco user? No Problems Problem Type SNOMED Code ICD Code Onset Dates Problem Status W/U Status Risk Notes Problem Non-pressure chronic ulcer of other part of right foot with fat layer exposed (L97.512) Active confirmed Problem Acquired hammer toe of right foot (3315301529805957) Other hammer toe(s) (acquired), right foot (M20.41) Active confirmed Problem Localized, primary osteoarthritis of the ankle and/or foot (882194204) Arthritis of joint of lesser toe, right (M19.071) Active confirmed Vital Signs Blood pressure diastolic 80 mm Hg 05/21/2024 Height 5ft 2.5in in 05/21/2024 Blood pressure systolic 120 mm Hg 05/21/2024 Weight 172 lbs 05/21/2024 BMI 30.95 kg/m2 05/21/2024 Procedures Procedure Date Ordered Date Performed Result Body Sit e 93348-Bfrs Destruction, 1-14 01/06/2024 N/A Encounters Encounter Location Date Provider Diagnosis [address] [address] 11/20/2023 Hernandez Jones Pain in left foot M79.672 ; Tinea unguium B35.1 ; Pain in right toe(s) M79.674 ; Pain in left toe(s) M79.675 ; Ingrowing nail L60.0 ; Localized edema R60.0 ; Other viral warts B07.8 ; Pain in right foot M79.671 and [facility]ung[facility] exostosis of great toe [facility]89.[facility] [address] 01/06/2024 Sylvia Black Pain in right toe(s) M79.674 ; Subungual exostosis of great toe M89.9 and Other viral warts B07.8 [facility] [address] 02/19/2024 Hernandez Jones Pain in left foot M79.672 ; Tinea unguium B35.1 ; Pain in right toe(s) M79.674 ; Pain in left toe(s) M79.675 ; Ingrowing nail L60.0 ; Localized edema R60.0 ; Other viral warts B07.8 ; Pain in right foot M79.671 and Subungual exostosis of great toe M89.[address] [address] 05/21/2024 Hernandez Jones Pain in left foot M79.672 ; Tinea unguium B35.1 ; Pain in right toe(s) M79.674 ; Pain in left toe(s) M79.675 ; Ingrowing nail L60.0 ; Localized edema R60.0 ; Other viral warts B07.8 ; Pain in right foot M79.671 and Subungual exostosis of great toe M89.[address] [address] 01/06/2024 Sylvia Storm [address] [address] 05/22/2024 Marciano Mane Assessments Encounter Date Diagnosis (ICD Code) Assessment Notes Treatment Notes Treatment Clinical Notes Section Notes 11/20/2023 Tinea unguium (ICD-10 - B35.1) 11/20/2023 Pain in left foot (ICD-10 - M79.672) 01/06/2024 Pain in right toe(s) (ICD-10 - M79.674) 01/06/2024 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) Decision for Surgery (4) 02/19/2024 Tinea unguium (ICD-10 - B35.1) 02/19/2024 Pain in left foot (ICD-10 - M79.672) 05/21/2024 Tinea unguium (ICD-10 - B35.1) 05/21/2024 Pain in left foot (ICD-10 - M79.672) 05/21/2024 Pain in right toe(s) (ICD-10 - M79.674) 01/06/2024 Other viral warts (ICD-10 - B07.8) 02/19/2024 Pain in right toe(s) (ICD-10 - M79.674) 11/20/2023 Pain in right toe(s) (ICD-10 - M79.674) 11/20/2023 Pain in left toe(s) (ICD-10 - M79.675) 02/19/2024 Pain in left toe(s) (ICD-10 - M79.675) 05/21/2024 Pain in left toe(s) (ICD-10 - M79.675) 05/21/2024 Ingrowing nail (ICD-10 - L60.0) 02/19/2024 Ingrowing nail (ICD-10 - L60.0) 11/20/2023 Ingrowing nail (ICD-10 - L60.0) 11/20/2023 Localized edema (ICD-10 - R60.0) 02/19/2024 Localized edema (ICD-10 - R60.0) 05/21/2024 Localized edema (ICD-10 - R60.0) 05/21/2024 Other viral warts (ICD-10 - B07.8) 02/19/2024 Other viral warts (ICD-10 - B07.8) 11/20/2023 Other viral warts (ICD-10 - B07.8) 11/20/2023 Pain in right foot (ICD-10 - M79.671) 02/19/2024 Pain in right foot (ICD-10 - M79.671) 05/21/2024 Pain in right foot (ICD-10 - M79.671) 05/21/2024 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) 02/19/2024 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) 11/20/2023 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) Plan Of Treatment Pending Test Test Name Order Date X ray : Foot, left 3V 01/04/2022 X ray : Foot, right 3V 11/20/2023 91064-Npdo Destruction, 1-14 01/06/2024 [id number] SKIN/TISSUE 02/04/202326850,[id number] TENDON SHEATH/LIGAMENT 0 01/04/2022 Next Appt Details Provider Name:Marciano Mane , 09/01/2024 08:45:00 AM, [address] [place], [address], Insurance Providers Payer Name Payer Address Payer Phone Subscriber Number Group Number Insured Name Patient Relationship to Insured Coverage Start Date Coverage End Date [employer] [address] [place] [address] [id number] Kathi Chan Self - patient is the insured Medical (General) History Medical History History ICD Code Arthritis Back,Hip,and Knee pain Measles Chicken pox High blood pressure A-Fib Surgical History Surgery Date(Month/Year) colonoscopy Hospitalization History Reason Date(Month/Year) [facility] few hrs 03/2022 [facility] 10/2023
--- OUTSIDE RECORDS SUMMARY | 2024-08-28 09:17 | XMS_ITS | Data Portability ---
Author Organization [facility] Home Service Address [address] [place] [address] Assessment Encounter Date Assessment Date Assessment LastModified by Organization Details LastModified Time 04/28/2024 04/28/2024 Patient agreed and verbally consents to this audio and video Telehealth appt via a secure platform [email or web address] Not available 04/28/2024 11:55:48 07/06/2024 07/06/2024 [id number] [place] [id number] (MANAGER VALUATION) MDM MODERATE MUST MEET 2 OUT OF 3 ELEMENTS: PROBLEMS, DATA OR RISK ELEMENT 1: PROBLEMS ADDRESSED 1 OR MORE CHRONIC ILLNESS WITH EXACERBATION OR 2 OR MORE STABLE CHRONIC ILLNESSES OR 1 UNDIAGNOSED NEW PROBLEM OR 1 ACUTE ILLNESS W/SYMPTOMS OR 1 ACUTE COMPLICATED INJURY ELEMENT 2: DATA MUST MEET 1 OF 3 CATEGORIES CATEGORY 1: REVIEW OF PRIOR EXTERNAL NOTES, REVIEW OF RESULTS, ORDERING OF EACH TEST, ASSESSMENT REQUIRING INDEPENDENT HISTORIAN OR CATEGORY 2: INDEPENDENT INTERPRETATION OF TESTS BY ANOTHER PHYSICIAN OR SPECIALIST OR CATEGORY 3: DISCUSSION OF MGT OR TEST INTERPRETATION W/EXTERNAL PHYSICIAN OR SPECIALIST ELEMENT 3: RISK RISK OF COMPLICATIONS AND/OR MORBIDITY OR MORTALITY OF PATIENT MANAGEMENT PROVIDER MUST THOROUGHLY DOCUMENT EACH ELEMENT THAT IS COVERED Not available 07/06/2024 12:25:31 Plan of Treatment Reminders Order Date Submit Date Provider Last Modified By Organization Details Last Modified Time Details Appointments FOLLOW UP 15 2024 10:30A M DR FOSTER Not available Not available Not available Lab uric acid, serum or plasma 2023 024 [facility], [address] [place] [address], [place], [address], 04/21/2024 11:33:38 Referral None recorded. Procedures None recorded. Surgeries None recorded. Imaging None recorded. Medication Orders prednison e 10 mg tablet 2023 024 [id number], [address], [place], [id number], 05/26/2024 10:48:26 codeine 10 mg-guaife nesin 100 mg/5 mL oral liquid 2023 024 [facility][id number], [address], [place], [id number], 05/26/2024 10:48:08 Zithromax Z-Bora 250 mg tablet 2023 024 [facility] #[id number], [address], [place], [id number], 05/26/2024 10:47:58 Patient TargetsNo targets recorded. Patient Instructions Encounter Date Encounter Id Patient Instructions Last Modified By Organization Details Last Modified Time 05/26/2024 [id number] pulse oximetry* Not available 05/26/2024 11:27:21 07/06/2024 [id number] deciding about surgery for a herniated disc Not available 07/06/2024 12:25:32 pulse oximetry* Not available 07/06/2024 12:25:33 chronic cough: care instructions Not available 07/06/2024 12:25:32 Reason for Referral None Reported. Results Created Date Observation Date Name Description Value Unit Range Abnormal Flag Note LastModifiedBy Organization Detail LastModifiedTime 05/26/2005/26/2024 pulse oxime try* Result 98 Not Available [facility] Address [address] [place], [address], 05/25/2024 12:13:50 07/06/2007/06/2024 pulse oxime try* Result 98 Not Available [facility] Address [address] [place], [address], 06/17/2024 11:06:13 Result Notes None recorded. 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 998463253 Active 2018 Not Available [facility] 1 15:23:27 Costal chondrit is 65636346 Active 2020 WYATT VELA [address],[place], [place], [address] , [facility] 1 09:46:57 Atrial fibrilla tion 08842244 Active 2021 WYATT VELA [address],[place], [place], [address] , [facility] 2 11:24:00 Cough 55747701 Active 2021 Ranjit Foster, DO [address],[place], [address] , [facility] 2 10:05:39 Edema of lower extremit y 884518776 Active 2022 Ranjit Foster DO [address],[place], [address] , [facility] 3 15:51:56 Dyspnea on exertion 70205430 Active 2022 Ranjit Foster DO [address],[place], [address] , [facility] 3 15:52:59 Aortic valve stenosis 84817641 Active 2022 Ranjit Foster DO [address],[place], [place], [address] , [facility] 3 16:54:06 Osteopen ia with high fracture risk 81136297200 9101 Active 2022 Ranjit Will Bigkeith, DO [address],[place], [address] , [facility] 3 16:55:32 Insomnia 963655475 Active 2022 WYATT VELA [address],[place], [address] , [facility] 3 08:27:45 Pain of left ankle joint 80841975761 860904 Active 2022 WYATT VELA [address],[place], [address] , [facility] 3 14:24:56 Pain of right knee joint 29663821065 4100 Active 2022 WYATT VELA [address],[place], [address] , [facility] 3 14:25:18 Pain of right ankle joint 08605405573 449942 Active 2022 WYATT VELA [address],[place], [address] , [facility] 3 14:25:35 Abdomina l pain 01598959 Active 2023 WYATT VELA [address],[place], [address] , [facility] 4 10:50:37 Low back pain 808318001 Active 2023 WYATT VELA [address],[place], [address] , [facility] 4 15:10:55 Dizzines s 882852740 Active 2023 WYATT VELA [address],[place], [address] , [facility] 4 09:13:58 Dyspnea 242978805 Active 2023 WYATT VELA [address],[place], [address] , [facility] 4 09:14:10 Chronic cough 21727949 Active 2023 WYATT VELA [address], [facility] [place], [address] , [facility] 4 09:18:24 Acute gout 000090787 Active 2023 WYATT VELA [address] [facility] [place], [address] , [facility] 4 11:40:21 Pain in lumbar spine 049262391 Active 2023 WYATT VELA [address], [facility] [place], [address] , [facility] 4 11:52:21 Acute bronchit is 40821650 Active 2023 WYATT VELA [address] [facility] [place], [address] , [facility] 4 11:53:29 COVID-19 139624597 Active 2023 WYATT VELA [address], [place], [address] , [facility] 4 10:18:07 Osteopen ia 970494112 Active 2017 Not Available [facility] 1 15:23:27 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 Casillas) Not Available [facility] 1 15:23:27 Eczema 61722679 Active 2017 Not Available [facility] 15:23:27 Migraine 91035168 Completed 201711/15/2021 Ranjit Foster DO [address] [facility] [place], [address] , [facility] 2 14:27:24 Gastroes ophageal reflux disease 066892299 Completed 201711/15/2021 with related chronic cough Ranjit Will Kat, [address] [facility],[place] [place], [address] , [facility] 2 14:27:17 Plantar fasciiti s 083093828 Completed 201711/15/2021 Ranjit Will Kat, [address] [place] [address],[place] [facility] [place], [address] , [facility] 2 14:27:43 Polyp of colon 10975081 Active 2017 Not Available [facility] 1 15:23:27 Mitral valve regurgit ation 66546943 Active 2017 tricuspi d regurgit ation Not Available [facility] 1 15:23:27 Restless legs 57874574 Completed 201711/15/2021 Ranjit MerlineAustin Foster, [address] [place] [address],[place] [facility] [place], [address] , [facility] 2 14:28:43 Essentia l hyperten noemi 98019284 Active 2017 Not Available [facility] 1 15:23:27 Hypercho lesterol emia 33666485 Active 2017 Not Available [facility] 1 15:23:27 Asthma 035931783 Completed 201705/08/2019 Ranjit Foster, [address] [place] [address],[place] [facility] [place], [address] , [facility] 9 09:22:38 Problem Notes None recorded. Medical Equipment None Reported. Allergies No known drug allergies Medications Name Sig Start Date Stop Date Status Note LastModified by Organization Details LastModified Time Prescripti on - Prior Authorizat ion Request 04/29 completed Not Available Not Available Not Available amoxicilli n 500 mg capsule 01/22 completed Not Available Not Available Not Available furosemide 40 mg tablet TAKE 1 TABLET BY MOUTH EVERY DAY 01/15 completed Not Available Not Available Not Available carvedilol 25 mg tablet TAKE 1 TABLET BY MOUTH TWICE DAILY 02/20 completed Not Available Not Available Not Available prednisone 10 mg tablet 40 mg x 2 days30 mg x 2 days20 mg x 2 days10 mg x 2 days 05/26 completed Not Available Not Available Not Available carvedilol 12.5 mg tablet TAKE 1 TABLET BY MOUTH EVERY MORNING AND TAKE 1 TABLET BY MOUTH EVERY EVENING active Not Available Not Available No t Available tizanidine 2 mg tablet 10/06 completed Not Available Not Available Not Available trazodone 50 mg tablet TAKE 1 AND 1/2 TABLETS BY MOUTH EVERY DAY AT BEDTIME 01/13 completed Not Available Not Available Not Available azithromyc in 250 mg tablet 05/26 completed Not Available Not Available Not Available diltiazem CD 180 mg capsule,ex tended release 24 hr TAKE 1 CAPSULE BY MOUTH EVERY DAY 07/10 completed Not Available Not Available Not Available diltiazem CD 240 mg capsule,ex tended release 24 hr TAKE 1 CAPSULE BY MOUTH EVERY DAY 01/15 completed Not Available Not Available Not Available propranolo l ER 60 mg capsule,24 hr,extende d release 01/22 completed Not Available Not Available Not Available simvastati n 10 mg tablet TAKE 1 TABLET BY MOUTH EVERY DAY 03/08 completed Not Available Not Available Not Available amlodipine 5 mg tablet 01/22 completed pedal edema Not Available Not Available Not Available omeprazole 40 mg capsule,de layed release Take 1 capsule every day by oral route for 30 days. 07/10 completed Not Available Not Available Not Available cefadroxil 500 mg capsule 05/09 completed Not Available Not Available Not Available temazepam 15 mg capsule take 1 capsule by mouth at bedtime 10/06 completed Not Available Not Available Not Available benzonatat e 100 mg capsule Take 1 capsule every 8 hours by oral route. 05/08 completed Not Available Not Available Not Available Cartia XT 120 mg capsule,ex tended release take 1 capsule by mouth once daily 10/30 completed Not Available Not Available Not Available cephalexin 500 mg capsule TAKE 1 CAPSULE BY MOUTH EVERY 8 HOURS FOR 10 DAYS 03/08 completed Not Available Not Available Not Available simvastati n 20 mg tablet TAKE 1 TABLET BY MOUTH EVERY DAY active Not Available Not Available No t Available flecainide 100 mg tablet TAKE 3 TABLETS BY MOUTH NEEDED FOR ATRIAL FIBRILLAT ION REOCCURS active Not Available Not Available No t Available triamteren e 37.5 mg-hydroch lorothiazi de 25 mg tablet TAKE 1 TABLET BY MOUTH EVERY DAY 02/20 completed Not Available Not Available Not Available omeprazole 20 mg capsule,de layed release TAKE 1 CAPSULE BY MOUTH EVERY DAY 07/06 completed Not Available Not Available Not Available codeine 10 mg-guaifen esin 100 mg/5 mL oral liquid TAKE 10 ML BY MOUTH EVERY 4 HOURS NEEDED 05/26 completed Not Available Not Available Not Available diclofenac sodium 50 mg tablet,del ayed release TAKE 1 TABLET BY MOUTH TWICE DAILY 07/10 completed Not Available Not Available Not Available furosemide 20 mg tablet TAKE 1 TABLET BY MOUTH EVERY DAY 08/09 completed Not Available Not Available Not Available albuterol sulfate HFA 90 mcg/actuat ion aerosol inhaler INHALE 2 PUFFS BY MOUTH EVERY 4 HOURS NEEDED FOR SHORTNESS OF BREATH OR COUGHING active Not Available Not Available No t Available Tussionex Pennkineti c ER 10 mg-8 mg/5 mL suspension ,extended release Take 5 mL every 12 hours by oral route. 05/08 completed Not Available Not Available Not Available ipratropiu m bromide 21 mcg (0.03 %) nasal spray USE 2 SPRAYS IN EACH NOSTRIL EVERY 12 HOURS 07/10 completed Not Available Not Available Not Available mometasone 0.1 % topical cream APPLY A THIN LAYER TO THE AFFECTED AREA(S) BY TOPICAL ROUTE ONCE DAILY 01/19 completed Not Available Not Available Not Available Benadryl Allergy 25 mg tablet Take 1 tablet by oral route as needed. 08/09 completed Not Available Not Available Not Available Pneumovax- 23 25 mcg/0.5 mL injection syringe 05/09 completed Not Available Not Available Not Available clobetasol -emollient 0.05 % topical cream 04/29 completed Not Available Not Available Not Available mirtazapin e 7.5 mg tablet TAKE 1 TABLET BY MOUTH EVERY DAY active Not Available Not Available No t Available Boostrix Tdap 2.5 Lf unit-8 mcg-5 Lf/0.5 mL intramuscu lar syringe 08/22 completed Not Available Not Available Not Available hydrochlor othiazide 12.5 mg tablet TAKE 1 TABLET BY MOUTH EVERY DAY active Not Available Not Available No t Available diclofenac 1 % topical gel APPLY 2 GRAMS TOPICALLY TO THE AFFECTED AREA FOUR TIMES DAILY 01/15 completed Not Available Not Available Not Available Eliquis 5 mg tablet TAKE 1 TABLET(5 MG) BY MOUTH TWICE DAILY active Not Available Not Available No t Available Flonase Allergy Relief 50 mcg/actuat ion nasal spray,susp ension Timpson 1 spray every day by intranasa l route. 05/27 completed Not Available Not Available Not Available Fluad 65yr up(PF)45 mcg(15 mcgx3)/0.5 mL intramuscu lar syringe 04/29 completed Not Available Not Available Not Available Fluzone High-Dose 5996-7660 (PF) 180 mcg/0.5 mL intramuscu lar syringe 08/22 completed Not Available Not Available Not Available Fluad 65yr up(PF)45 mcg(15 mcgx3)/0.5 mL intramuscu lar syringe 05/09 completed Not Available Not Available Not Available Fluzone High-Dose Quad (PF) 240 mcg/0.7 mL IM syringe 07/13 completed Not Available Not Available Not Available BinaxNOW COVID-19 Ag Self Test kit TEST DIRECTED TODAY 04/04 completed Not Available Not Available Not Available Paxlovid 300 mg (150 mg x 2)-100 mg tablets in a dose pack TK 2 NIRMATREL VIR TS AND 1 RITONAVIR T TOGETHER PO TWICE DAILY FOR 5 DAYS 05/26 completed Not Available Not Available Not Available Vitals Date Recorded Body height Body mass index (BMI) Body weight Heart rate Oxygen saturation Oxygen saturation in Arterial blood by Pulse oximetry Systolic blood pressure Diastolic blood pressure Provider Name and Address Organization Details Last Updated DateTime 4 161.93 cm 33.9 kg/m2 15656.1 g 66 /min 97 % 97 % 120 mm[Hg] 76 mm[Hg] Mitch [facility] 4 08:57:30 Date Recorded Body height Body mass index (BMI) Body weight Heart rate Oxygen saturation Oxygen saturation in Arterial blood by Pulse oximetry Systolic blood pressure Diastolic blood pressure Provider Name and Address Organization Details Last Updated DateTime 4 161.93 cm 33.9 kg/m2 73591.1 g 60 /min 97 % 97 % 120 mm[Hg] 78 mm[Hg] Stephaniecamila Loeramond [facility] 4 11:27:05 Date Recorded Body height Body mass index (BMI) Body weight Heart rate Oxygen saturation Oxygen saturation in Arterial blood by Pulse oximetry Systolic blood pressure Diastolic blood pressure Provider Name and Address Organization Details Last Updated DateTime 4 161.93 cm 33.9 kg/m2 95814.1 g 60 /min 98 % 98 % 120 mm[Hg] 64 mm[Hg] [facility] 10:50:07 Date Recorded Body height Body mass index (BMI) Body weight Heart rate Oxygen saturation Oxygen saturation in Arterial blood by Pulse oximetry Systolic blood pressure Diastolic blood pressure Provider Name and Address Organization Details Last Updated DateTime 4 161.93 cm 33.4 kg/m2 16164.3 3 g 56 /min 98 % 98 % 122 mm[Hg] 76 mm[Hg] Mitch Brush [facility] 4 12:01:52 Social History Question Answer Notes LastModified by CareParent Details LastModified Time Tobacco Smoking Status Never Smoker Not Available [facility] 07/19/2020 03:36:24 What Is Your Level Of Alcohol Consumption? None [id number] Information not available 07/19/2020 What Is Your Level Of Caffeine Consumption? Moderate 2 Cups Per Day [id number] Information not available 07/19/2020 What Is Your Occupation? Retired [id number] Information not available 07/19/2020 What Was The Date Of Your Most Recent Tobacco Screening? 07/06/2024 [email or web address] Information not available 07/06/2024 Do You Use Any Illicit Or Recreational Drugs? No [email or web address] Information not available 11/15/2021 Do You Or Have You Ever Used Any Other Forms Of Tobacco Or Nicotine? No [email or web address] Information not available 03/08/2023 Sex: Unknown Functional Status Question Answer Note LastModified by CareParent Details LastModified Time What is your exercise level? Occasional walking [id number] Information not available 07/19/2020 Mental Status None recorded. Family History Nothing Reported. Medical History No medical history recorded. Gynecological HistoryNo gynecological history recorded. Obstetrics History GPAL:G 0 P 0 0 0 0 Immunizations Vaccine Type Date Status Note Provider Nam e and Address Organization Details Recorded Time Influenza, split virus, quadrivalent, preservative 1 [facility] 13:41:11 COVID-19, mRNA, LNP-S, PF, 100 mcg/0.5mL dose or 50 mcg/0.25mL dose 1 [facility]21 15:28:26 zoster live 9 [facility] 11/15[facility]2021 15:14:14 Pneumococcal conjugate PCV 13 5 christoph [facility] 11/15/2021 15:15:39 Influenza, split virus, quadrivalent, preservative 9 christoph [facility] 06/08/2019 08:39:43 Influenza, split virus, quadrivalent, preservative 0 completed Libby [facility] 06/14/2020 13:52:15 pneumococcal polysaccharide PPV23 9 christoph [facility] 11/15/2021 15:15:23 Tdap 8 [facility]/06/2018 08:39:28 COVID-19, mRNA, LNP-S, PF, 100 mcg/0.5mL dose or 50 mcg/0.25mL dose 1 [facility] 10/21/2020 09:02:37 COVID-19, mRNA, LNP-S, PF, 100 mcg/0.5mL dose or 50 mcg/0.25mL dose 1 [facility] 11/14/2020 15:46:25 Influenza, split virus, quadrivalent, preservative 08/20/201 8 [place] [facility] 05/06/2018 08:39:05 Past Encounters Encounter ID Performer Location Encounter Start Date Encounter Closed Date Diagnosis/Indication Diagnosis SNOMED-CT Code Diagnosis ICD10 Code [id number] SANDEEP Diaz [address] [address] 01/22/2018 14:56:18 01/22/2018 15:43:27 Asthma 325588927 J45.909 Essential hypertension 96619902 I10 Peripheral edema 1269060 00 R60.9 [id number] Elle MIRIAM Hudson[address] [address] 03/26/2018 15:14:38 03/26/2018 15:51:20 Asthma 256156117 J45.909 Essential hypertension 11292131 I10 Peripheral edema 5106290 00 R60.9 [id number] Ranjit Foster [address] [address] 04/29/2018 08:48:39 04/29/2018 12:17:46 Adult health examination 477774382 Z00.00 Active or passive immunization 372898585 Z23 Screening for osteoporosis 117806631 Z13.820 Eczema 10637659 L30.9 [id number] Ranjit Foster [address] [address] 08/22/2018 09:04:01 08/22/2018 11:55:16 Asthma 066549763 J45.909 Essential hypertension 32923538 I10 Insomnia 381175336 G47.0 0 Hypercholesterolemia 136 83743 E78.00 [id number] Ranjit Foster [address] [address] 10/31/2018 08:47:40 10/31/2018 09:38:11 Insomnia 311805433 G47.00 Essential hypertension 86417971 I10 Hypercholesterolemia 136 14519 E78.00 Burn 036945952 T30.0 [id number] April Velasquez NP, S [address] [address] 01/19/2019 11:07:13 01/19/2019 12:17:44 Cough 52133457 R05 Insomnia 490680644 G47.0 0 Hypercholesterolemia 136 42296 E78.00 Osteopenia 866661599 M85 .9 Essential hypertension 34550625 I10 [id number] Ranjit Foster [address] [place] [address] 05/08/2019 08:47:50 05/08/2019 09:45:13 Essential hypertension 72020798 I10 Shoulder pain 55905366 M 25.519 [id number] Ranjit Foster [address] [place] [address] 06/15/2019 15:05:35 06/15/2019 16:03:29 Essential hypertension 07196700 I10 Neck pain 27585956 M54.[id number] [place] [address] 10/06/2019 13:46:47 10/06/2019 14:43:10 Essential hypertension 91993260 I10 Gastroesop hageal reflux disease 347265511 K21.9 Obstructiv e sleep apnea syndrome 30048514 G47.33 Dyspnea on exertion 6084 5006 R06.09 Weight gain 4546962 R63. 5 Chronic cough 73009188 R 05 Insomnia 456941176 G47.0 0 [id number],[place] [address] 10/30/2019 13:47:55 10/30/2019 15:12:26 Essential hypertension 08392485 I10 Gastroesop hageal reflux disease 446367770 K21.9 Obstructiv e sleep apnea syndrome 85766410 G47.33 Dyspnea on exertion 6084 5006 R06.09 Weight gain 1057576 R63. 5 Chronic cough 11700467 R 05 Insomnia 936335515 G47.0 0 [id number] WYATT VELA [address] [place] [address] 05/09/2020 10:53:35 05/09/2020 12:10:00 Cyst of abdomen 651244926 R19.00 Essential hypertension 48077697 I10 Hypercholesterolemia 136 68807 E78.00 Vitamin D deficiency 347 71691 E55.9 Insomnia 248908692 G47.0 0 [id number] Ranjit Will Walalcekeith [address] [address] 05/27/2020 10:55:31 05/27/2020 14:01:01 Essential hypertension 40068193 I10 Adult heal th examination 875230852 Z00.00 Active or passive immunization 542753927 Z23 Mass of gonzalez bcutaneous tissue of abdominal wall 8848370081 2063562 R22.2 [id number] WYATT VELA [address] [address] 06/20/2020 11:04:13 06/20/2020 12:33:38 Consultation 27695907 Z00.00 [id number] WYATT VELA [address] [address] 07/13/2020 09:50:26 07/13/2020 10:53:35 Costal chondritis 42659938 M94.0 Abdominal pain 58439698 R10.9 [id number] WYATT VELA [address] [address] 08/16/2020 10:31:09 08/16/2020 13:34:37 Cough 78704636 R05 Insomnia 826144552 G47.0 0 [id number] Ranjit MerlineAustin Foster [address] [address] 10/21/2020 08:56:36 10/21/2020 10:43:03 Abdominal pain 20869466 R10.9 Essential hypertension 49816835 I10 Gastroesop hageal reflux disease 689833910 K21.9 Hypercholesterolemia 136 57605 E78.00 Insomnia 614860417 G47.0 0 [id number] Ranjit MerlineAustin Foster [address] [address] 11/11/2020 11:57:08 11/11/2020 12:41:11 Left lower quadrant pain 952336931 R10.32 [id number] Ranjit Foster DO [address],[place] [address] 05/05/2021 11:55:12 05/05/2021 14:29:13 Costal chondritis 72058737 M94.0 Had a chat to patient 18 4498405 Z71.9 Insomnia 091795601 G47.0 0 [id number] Ranjit Foster, DO [address],[place] [address] 05/24/2021 08:51:46 05/24/2021 09:34:26 Essential hypertension 63902870 I10 Gastroesop hageal reflux disease 217103461 K21.9 Laryngopha ryngeal reflux 818471674 K21.9 [id number] WYATT VELA [address],[place] [address] 07/10/2021 10:00:53 07/10/2021 10:51:33 Essential hypertension 01147335 I10 Edema of l ower extremity 880894772 R60.0 Insomnia 454802474 G47.[id number] [place] [address] 07/18/2021 11:20:07 07/18/2021 12:06:40 Edema of lower extremity 710442194 R60.0 [id number] WYATT VELA [address] [address] 08/09/2021 09:20:03 08/09/2021 12:01:47 Hypercholesterolemia 07637037 E78.2 Essential hypertension 64500608 I10 Insomnia 893076264 G47.0 0 Costal chondritis 204624 04 M94.0 [id number] [address] V[address]A [address] [address] 11/03/2021 10:48:21 11/03/2021 14:23:29 Essential hypertension 17361675 I10 [id number] Ranjit Foster, DO [address] [address] 11/15/2021 13:47:40 11/15/2021 14:44:35 Active or passive immunization 315187930 Z23 Adult heal th examination 161299119 Z00.00 Essential hypertension 61099430 I10 [id number] WYATT VELA [address] [place] [address] 04/04/2022 10:59:09 04/04/2022 13:21:57 Active or passive immunization 782786370 Z23 Atrial fibrillation 4943 6004 I48.0 [id number] Ranjit Foster DO [address] [place] [address] 05/25/2022 07:57:21 05/25/2022 11:41:19 Atrial fibrillation 83686607 I48.0 Essential hypertension 71272112 I10 Obstructiv e sleep apnea syndrome 39350001 G47.33 Cough 86621361 R05.9 [id number] Ranjit Foster DO [address] [place] [address] 07/02/2022 11:56:32 07/02/2022 14:17:54 Active or passive immunization 883044671 Z23 Atrial fibrillation 4943 6004 I48.0 Essential hypertension 74261431 I10 Cough 80439970 R05.9 [id number] Ranjit Foster DO [address] [place] [address] 08/24/2022 10:01:35 08/24/2022 11:33:47 Essential hypertension 40590003 I10 Atrial fibrillation 4943 6004 I48.0 [id number] Ranjit Foster DO [address] [place] [address] 01/15/2023 14:48:59 01/15/2023 15:59:39 Atrial fibrillation 28812892 I48.0 Essential hypertension 13485211 I10 Edema of l ower extremity 997809667 R60.0 Dyspnea on exertion 6084 5006 R06.09 Osteopenia 161056752 M85 .80 [id number] Ranjit Foster [address] [place] [address] 02/01/2023 07:56:21 02/04/2023 08:32:59 Essential hypertension 25548000 I10 Edema of l ower extremity 850812681 R60.0 Aortic valve stenosis 60 282010 I35.0 Osteopenia with high fracture risk 4116995424 27733 M85.80 [id number],[place] [address] 03/08/2023 13:29:57 03/08/2023 15:44:38 Atrial fibrillation 80793379 I48.0 [id number] WYATT VELA [address],[place] [address] 05/22/2023 13:49:55 05/22/2023 15:00:49 Pain of left ankle joint 3949602843 7931694 M25.572 Pain of ri ght ankle joint 6083048293 7334308 M25.571 [id number] WYATT VELA [address],[place] [address] 10/15/2023 08:47:16 10/15/2023 13:54:56 Abdominal pain 75521662 R10.32 [id number] WYATT VELA [address],[place] [address] 11/08/2023 14:35:24 11/11/2023 14:15:07 Atrial fibrillation 54433907 I48.0 Low back pain 788534562 M54.51 [id number] WYATT VELA [address] [address] 01/14/2024 09:01:23 01/14/2024 09:49:48 Dizziness 049338152 R42 Dyspnea 472346046 R06.02 Chronic cough 04735310 R 05.3 Insomnia 096950297 G47.0 0 [id number] WYATT VELA [address],[place] [address] 01/31/2024 10:01:13 02/03/2024 12:05:51 Depression screening 542594708 Z13.31 Dizziness 343315137 R42 [id number] WYATT VELA [address] [place] [address] 02/21/2024 09:20:50 02/21/2024 10:20:52 Edema of lower extremity 911468550 R60.0 Essential hypertension 41236977 I10 [id number] WYATT VELA [address] [address] 02/28/2024 09:35:46 02/28/2024 14:48:19 Low back pain 762761028 M54.51 Essential hypertension 58184519 I10 [id number] WYATT VELA [address] [address] 03/30/2024 08:52:43 2024 09:17:25 Atrial fibrillation 26874633 I48.0 Dizziness 639591407 R42 [id number] WYATT VELA [address] [address] 04/20/2024 11:08:24 04/20/2024 13:22:31 Acute gout 493418642 M10.072 Pain in lumbar spine 267 670126 M54.51 [id number] WYATT VELA [address] [address] 04/28/2024 09:30:08 04/28/2024 16:08:03 Acute bronchitis 36879872 J20.8 [id number] Ranjit Foster DO [address] [address] 05/26/2024 10:41:14 05/26/2024 11:33:27 Active or passive immunization 878182989 Z23 Adult heal th examination 245128752 Z00.00 Atrial fibrillation 4943 6004 I48.0 Essential hypertension 41777573 I10 Hypercholesterolemia 136 23392 E78.2 Dyspnea on exertion 6084 5006 R06.09 [id number] Ranjit Foster DO [address] [address] 07/06/2024 11:47:10 07/06/2024 13:37:27 Chronic cough 29095888 R05.3 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 92131869 M51.9 Atrial fibrillation 4943 6004 I48.0 Health Concerns Section Related Observation LastModified by Organization Detai ls LastModified Time None Recorded Concern Status LastModified by Organization Details LastModified Time None Recorded Advance Directives Directive None Recorded Payers Encounter Date Sequence Insurance Name Policy Number Policy Piña Covered Member ID Piña Member ID Guarantor Name 03/30/2024 1 [facility] - MEDICARE ADVANTAGE PLAN (MEDICARE REPLACEMENT HMO) [id number] 1 Kathi Chan [id number] Kathi Chan 04/20/2024 1 [employer] - MEDICARE ADVANTAGE PLAN (MEDICARE REPLACEMENT HMO) [id number] Kathi Chan [id number] Kathi Chan 04/28/2024 1 [employer] - MEDICARE ADVANTAGE PLAN (MEDICARE REPLACEMENT HMO) [id number] 1 Kathi Chan [id number] Kathi Chan 05/26/2024 1 [facility] MEDICARE ADVANTAGE PLAN (MEDICARE REPLACEMENT HMO) [id number] Kathi Chan [id number] Kathi Chan 07/06/2024 1 [facility] MEDICARE ADVANTAGE PLAN (MEDICARE REPLACEMENT HMO) [id number] Kathi Chan [id number] Kathi Chan Notes Date Note Type Note Provider Name and Address Organization Details Recorded Time 03/30/2024 text/html ER f/u the patient reports that she was recently in the ER last week due to dizziness and chest pressurewent to the ER after taking 300 mg of flecanide thinking she may be having a fib episodethe patient reports that due to the high dose of flecanide she felt her HR dropped and felt unwell with worse dizzinessthe patient reports that that she was admitted for observation which was not revealing, no signs of a. fib or other issuesthe patient followed up with cardiology which they reviewed the results which were normaldid have a holter monitor for 7 days, do not have the results for that at this time the patient otherwise has no other concerns today WYATT VELA [address] [place], [address], [facility] 03/30/2024 09:17:14 04/20/2024 text/html c/o swelling in the left big toe the patient reports that she developed acute onset, leg big toe pain and swellingwarm, red and very tender to the the patient last injection for her back was September in 2022talking to Dr. eTllez about getting an injectionwill have front end software developer call about it since her insurance will pay for it, doesn't want the ablation will f/u with patient after we talk to there office WYATT VELA [address] [place], [address], [facility] 04/20/2024 11:54:38 04/28/2024 text/html c/o sick symptom s The patient is participating in this appointment via telemedicine communication with a phone call/video calling service (Doxy)The patient consents to use of these platforms in place of an in-person appointment due to either sick symptoms the patient is presenting with or current office closure due to COVID exposure in order to keep our office staff and patients safe The patient presents to the office today with concerns of sick symptoms including cough, congestion, nasal congestion The symptoms started originally yesterdayThe patient reports exposure to friends, people at the grocery store, hard to say who specifically but she has been around people, cases of colds and COVID have been on the rise in this area as wellThe patient symptoms mainly involves the cough and congestion Pertinent comorbidities include age, afib The patient symptoms are alleviated by restThe patient symptoms are exacerbated by talking, activity The patient has tested for COVID-19 and the results was negative, but is redoing one tomorrow to double check a true negative agreed to start on z bora and cough med, declined XR to r/o pneumonia since she doesn't feel up for it at this time will call with COVID results tomorrow WYATT VELA [address] [place], [address], [facility] 04/28/2024 11:59:06 05/26/2024 text/html did ok fro the g out wondering about meds etcshe has had some exertional dyspnea has been ongoing for years Ranjit A. Bigda, [address], [address], [facility] 05/26/2024 11:28:30 05/26/2024 text/html Annual WellnessReported bypatient.Diet and Nutrition:healthy diet Fracture Risk:no history of fractures; no recent explained fracture; no sudden unexplained fractures; no previous musculoskeletal injuries Physical Activity:exercises on a regular basis; recent increase in physical activity; good physical condition Additional Lifestyle Factors:no tobacco use; no alcohol intake; stopped drinking alcohol Depression Risk:never feels sad, empty, or tearful; no loss of interest in activities; no significant changes in weight; no sleep disturbances or insomnia; no agitation; no loss of energy; no feelings of worthlessness or guilt; no thoughts of suicide; no history of depression; no history of mood disorders Hearing:no loss of hearing Vision:no vision problems Ranjit Foster [address], [address], [facility] 05/26/2024 11:28:30 07/06/2024 text/html here for follow upstates will be seeing dr kong next weekdiscussion re her vaccine she is up to datediscussion re her sleep and she has tried several diff medstold her she should not be afraid of taking a gummy Ranjit Foster [address], [place], [address], [facility] 07/06/2024 12:25:57 OBGyn Episode No OBEpisode recorded.
--- OUTSIDE RECORDS SUMMARY | 2024-08-28 09:18 | XMS_ITS | Continuity of Care Document ---
Author Organization [facility], [facility]DRESS Address [address] [place] [address] Assessment Encounter Date Assessment Date Assessment LastModified by Organization Details LastModified Time 07/06/2024 07/06/2024 [address] [place] [address] (TEMPLE MARKER) MDM MODERATE MUST MEET 2 OUT OF [...] Not available Not available Not available Lab None recorded . Referral None recorded . Procedures None recorded . Surgeries None recorded . Imaging None recorded . Medication Orders None recorded . Patient TargetsNo targets recorded. Patient Instructions Encounter Date Encounter Id Patient Instructions Last Modified By Organization Details Last Modified Time 07/06/2024 [id number] deciding about surgery for a herniated disc Not available 07/06/2024 12:25:32 pulse oximetry* Not available 07/06/2024 12:25:33 chronic cough: care instructions Not available 07/06/2024 12:25:32 Reason for Referral None Reported. Results Created Date Observation Date Name Description Value Unit Range Abnormal Flag Note LastModifiedBy Organization Detail LastModifiedTime 07/06/2007/06/2024 pulse oxime try* Result 98 Not Available Heather Old Address [address] [facility] [place], [address], 06/17/2024 11:06:13 Result Notes None recorded. 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 Active 2020 WYATT VELA [address] [place], [place] [address] [place], [address] , [facility] 1 09:46:57 Atrial fibrilla tion 63283630 Active 2021 WYATT VELA [address] [place] [address], [address] , [facility] 2 11:24:00 Cough 77356510 Active 2021 Ranjit Foster [address], [address] , [facility] 2 10:05:39 Edema of lower extremit y 707603523 Active 2022 Ranjit Foster [address], [address] , [facility] 3 15:51:56 Dyspnea on exertion 14333244 Active 2022 Ranjit Foster [address], [address] , [facility] 3 15:52:59 Aortic valve stenosis 75257828 Active 2022 Ranjit Foster, DO [address],[place], [address] , [facility] 3 16:54:06 Osteopen ia with high fracture risk 64435002832 9101 Active 2022 Rnajit Foster, DO [address],[place], [address] , [facility] 3 16:55:32 Insomnia 901534744 Active 2022 WYATT VELA [address],[place], [address] , [facility] 3 08:27:45 Pain of left ankle joint 82733160033 159415 Active 2022 WYATT VELA [address],[place], [address] , [facility] 3 14:24:56 Pain of right knee joint 73387004629 4100 Active 2022 WYATT VELA [address],[place], [address] , [facility] 3 14:25:18 Pain of right ankle joint 05459405897 079093 Active [address],[place], [address] , [facility] 3 14:25:35 Abdomina l pain 37329066 Active 2023 WYATT VELA [address],[place], [address] , [facility] 4 10:50:37 Low back pain 737419360 Active [address],[place], [address] , [facility] 4 15:10:55 Dizzines s 115731255 Active 2023 FARHAN TOWNSEND, PA [address],[place] A, [place], [address] , [facility] 4 09:13:58 Dyspnea 317966524 Active 2023 FARHAN TOWNSEND PA [address],[place] A, [place], [address] , [facility] 4 09:14:10 Chronic cough 64466809 Active 2023 FARHAN TOWNSEND PA [address],[place] A, [place], [address] , [facility] 4 09:18:24 Acute gout 570049068 Active 2023 FARHAN TOWNSEND PA [address],[place] A, [place], [address] , [facility] 4 11:40:21 Pain in lumbar spine 798877623 Active 2023 FARHAN TOWNSEND PA [address],[place] A, [place], [address] , [facility] 4 11:52:21 Acute bronchit is 74086158 Active 2023 FARHAN TOWNSEND, PA [address],[place] A, [place], [address] , [facility] 4 11:53:29 COVID-19 775533208 Active 2023 FARHAN TOWNSEND, PA [address],[place] A, [place], [address] , [facility] 4 10:18:07 Osteopen ia 018222648 Active 2017 Not Available [facility] 15:23:27 Degenera tion of interver tebral disc 72836988 Active 2017 lumbar,s acral ( Dr. Casillas) Not Available [facility] 15:23:27 Eczema 43294484 Active 2017 Not Available [facility] 1 15:23:27 Migraine 81398055 Completed 201711/15/2021 Ranjit Suman Foster, [address] [place] [address],[place], [address] , [facility] 2 14:27:24 Gastroes ophageal reflux disease 165011389 Completed 201711/15/2021 with related chronic cough Ranjit Foster [address],[place], [address] , [facility] 2 14:27:17 Plantar fasciiti s 782216936 Completed 201711/15/2021 Ranjit Foster, [address] [place] [address],[place], [address] , [facility] 2 14:27:43 Polyp of colon 85541440 Active 2017 Not Available [facility] 1 15:23:27 Mitral valve regurgit ation 27214009 Active 2017 tricuspi d regurgit ation Not Available [facility] 15:23:27 Restless legs 33662375 Completed 201711/15/2021 Ranjit Foster, [address] [place] [address],[place], [address] , [facility] 2 14:28:43 Essentia l hyperten noemi 43588591 Active 2017 Not Available [facility] 1 15:23:27 Hypercho lesterol emia 38587235 Active 2017 Not Available [facility] 15:23:27 Asthma 591315865 Completed 201705/08/2019 Ranjit Foster, [address],[place], [address] , [facility] 9 09:22:38 Problem Notes None [...] Relief 50 mcg/actuat ion nasal spray,susp ension [place] 1 spray every day by intranasa l route. 05/27 completed Not Available Not Available Not Available Fluad 65yr up(PF)45 mcg(15 mcgx3)/0.5 mL intramuscu lar syringe 04/29 completed Not Available Not Available Not Available Fluzone High-Dose 6410-3688 (PF) 180 mcg/0.5 mL intramuscu lar syringe [...] Updated DateTime 4 161.93 cm 33.4 kg/m2 20943.3 3 g 56 /min 98 % 98 % 122 mm[Hg] 76 mm[Hg] Mitch Trudi [facility] 4 12:01:52 Social History Question Answer Notes LastModified by Organizat ion Details LastModified Time Tobacco Smoking Status Never Smoker Not Available [facility] 07/19/2020 03:36:24 What Is Your Level Of Alcohol Consumption? None [id number] Information not available 07/19/2020 What Is Your Level Of Caffeine Consumption? Moderate 2 Cups Per Day [id number] Information not available 07/19/2020 What Is Your Occupation? Retired [id number] Information not available 07/19/2020 What Was The Date Of Your Most Recent Tobacco Screening? 07/06/2024 [email or web address] Information not available 07/06/2024 Do You Use Any Illicit Or Recreational Drugs? No [email or web address] Information not available 11/15/2021 Do You Or Have You Ever Used Any Other Forms Of Tobacco Or Nicotine? No [email or web address] Information not available 03/08/2023 Sex: Unknown Functional Status Question Answer Note LastModified by Organizat ion Details LastModified Time What is your exercise level? Occasional walking [id number] Information not available 07/19/2020 Mental Status None recorded. Family History Nothing Reported. Medical History No medical history recorded. Gynecological HistoryNo gynecological history recorded. Obstetrics History GPAL:G 0 P 0 0 0 0 Immunizations Vaccine Type Date Status Note Provider Nam e and Address Organization Details Recorded Time Influenza, split virus, quadrivalent, preservative 1 completed Libby magallanes [facility] 06/14/2021 13:41:11 COVID-19, mRNA, LNP-S, PF, 100 mcg/0.5mL dose or 50 mcg/0.25mL dose 1 completed Rhiannon magallanes [facility] 07/18/2021 15:28:26 zoster live 9 christoph magallanes [facility] 11/15/2021 15:14:14 Pneumococcal conjugate PCV 13 5 christoph magallanes [facility] 11/15/2021 15:15:39 Influenza, split virus, quadrivalent, preservative 9 [facility] 08:39:43 Influenza, split virus, quadrivalent, preservative 0 completed [facility] 06/14/2020 13:52:15 pneumococcal polysaccharide PPV23 9 christoph magallanes [facility] 11/15/2021 15:15:23 Tdap 8 christoph magallanes [facility] 05/06/2018 08:39:28 COVID-19, mRNA, LNP-S, PF, 100 mcg/0.5mL dose or 50 mcg/0.25mL dose 1 christoph magallanes [facility] 10/21/2020 09:02:37 COVID-19, mRNA, LNP-S, PF, 100 mcg/0.5mL dose or 50 mcg/0.25mL dose 1 christoph magallanes [facility] 11/14/2020 15:46:25 Influenza, split virus, quadrivalent, preservative 8 [facility]/06/2018 08:39:05 Past Encounters Encounter ID Performer Location Encounter Start Date Encounter Closed Date Diagnosis/Indication Diagnosis SNOMED-CT Code Diagnosis ICD10 Code [id number] Ranjit Foster DO [facility] [address] [place] [address] 07/06/2024 11:47:10 07/06/2024 13:37:27 Chronic cough 85136076 R05.3 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 55450392 M51.9 Atrial fibrillation 4943 6004 I48.0 Health Concerns Section Related Observation LastModified by Organization Detai ls LastModified Time None Recorded Concern Status LastModified by Organization Details LastModified Time None Recorded Payers Encounter Date Sequence Insurance Name Policy Number Policy Piña Covered Member ID Piña Member ID Guarantor Name 07/06/2024 1 [employer] - MEDICARE ADVANTAGE PLAN (MEDICARE REPLACEMENT HMO) [id number] 1 Kathi Chan [id number] Kathi Chan Notes Date Note Type Note Provider Name and Address Organization Details Recorded Time 07/06/2024 text/html here for follow upstates will be seeing dr okng next weekdiscussion re her vaccine she is up to datediscussion re her sleep and she has tried several diff medstold her she should not be afraid of taking a gummy Ranjit Foster, DO [address] [place], [address], [facility] 07/06/2024 12:25:57 OBGyn Episode No OBEpisode recorded.
--- NOTE | 2024-08-28 09:20 | MHC.OFFVIS ---
Vital Signs 08/28/24 09:21 Height 5 ft 3 in Weight 195 lb BMI 34.5 BP 148/74 H Blood Pressure Location Lt brachial Position Sitting Respiration 16 Pulse 62 Pulse Source Pulse Oximeter Pulse Oximetry (%) 98 Oxygen Delivery Method Room Air Intake Visit Reasons: Lumbar facet arthropathy Allergies No Known Allergies Allergy (Verified 08/28/24 09:30) Medication List - Last Reconciled 08/28/24 by Hortencia Barrientos LPN apixaban (Eliquis) 5 mg PO BID carvedilol 6.25 mg PO BID flecainide 150 mg PO Q12H hydrochlorothiazide 12.5 mg PO DAILY simvastatin 20 mg PO BEDTIME HPI HPI Lumbar facet arthropathy: Details: 84-year-old female who presents today to the office for evaluation of lumbar facet arthropathy.? This is an 84-year-old lady presenting with a history of right lower back pain that is primarily axial in nature. Her pain score is rated as 9/10 in intensity on average. She reports that the pain is primarily located on the right side of her back and is exacerbated by standing and walking. The pain eases when sitting. She also reports difficulty lifting her legs due to a feeling of pressure in her back.? She had lumbar facet cortisone injections in September 2022 that provided her with 18 months of relief. Most recently, she went to Dr. Theo Gonzales in June 2024 and underwent right L4-5 and L5-S1 facet injections that provided excellent response to the anesthetic but unfortunately little to no response to the steroid phase.? She received 8 lumbar facet cortisone injections from 2010 to 2022 at [facility]. The injections appear to have been mostly facet injections and have largely been effective, providing relief for up to three to four years at a time.? [facility] Medical History (Updated 09/01/24 @ 10:25 by Enio Phillips MD) Hyperlipidemia Atrial fibrillation Hypertension Review of Systems Const All systems reviewed & are unremarkable except as noted in HPI and below Physical Exam Vital Signs: Last Vital Signs Pulse 62 08/28/24 09:21 Resp 16 08/28/24 09:21 BP 148/74 H 08/28/24 09:21 Pulse Ox 98 08/28/24 09:21 Oxygen Delivery Method Room Air 08/28/24 09:21 BMI result Body Mass Index 34.5 General: Appears afebrile. Alert and oriented. Mood and affect appropriate. Follows and participates in conversation appropriately. Respiratory effort is unlabored. Able to transition from sit to stand unassisted. Ambulates with bilaterally normal heel strike and toe off. Facet loading?on?the?right?side reproduces pain on the right lower back region. Results Reviewed Results Reviewed: No imaging is available for review. Assessment & Plan Assessment & Plan (1) Lumbar spondylosis: Code(s): M47.816 - Spondylosis without myelopathy or radiculopathy, lumbar region Category: Medical Plan Discussed cortisone injections vs sacroiliac joint injection as a possible treatment option for axial low back pain. We will schedule her for a right L4-5 and L5-S1 intraarticular steroid injection. Discussed the risks and benefits of the procedure with the patient in detail. All questions were answered. The patient is on board with the plan. Justification for interventional therapy: ? Patient with average pain > 6/10 ? Patient has exhausted conservative therapy physical therapy. ? Patient unable to tolerate physical therapy due to pain. ? She has had more than one year of relief on average from such these injections in the past. . Patient has a good understanding of their pain condition and has appropriate mental and social support. Scribed for Dr. Phillips by Nasim Rodriguez, medical transcription editor, on 08/28/2024. I, Dr. Phillips, have personally reviewed and agree with the information entered by the scribe. Coding Level of Care Code New Pt Level 4 (72768) Diagnoses Lumbar spondylosis M47.816
[2024-08-28 09:21] VITALS: BP 148/74; PULSE 62; RESP 16; O2SAT 98; BMI 34.5
== END 2024-08-28 09:52 | disposition home or self-care (01) ==
PROVIDERS: PCP Internal Medicine; Visit Provider Internal Medicine
DX: M47.816 Spondylosis without myelopathy or radiculopathy, lumbar region (principal)
CPT/HCPCS: 99204

== ENCOUNTER → 2024-08-28 09:13 | Outpatient (BNVA) | payer MEDICARE, SELFPAY | PROVIDERS: PCP Internal Medicine; Visit Provider Internal Medicine | DX: M47.816 Spondylosis without myelopathy or radiculopathy, lumbar region (principal) | CPT/HCPCS: 99202 ==

== ENCOUNTER 2024-10-01 08:46 | Outpatient (AMB) | payer MEDICARE, SELFPAY ==
[2024-10-01 08:55] VITALS: BP 148/82; PULSE 61; O2SAT 97
--- NOTE | 2024-10-01 08:55 | MHC.OFFVIS ---
Vital Signs 10/01/24 08:55 10/01/24 10:03 BP 148/82 H 140/74 H Blood Pressure Location Rt brachial Lt brachial Position Sitting Sitting Pulse 61 62 Pulse Source Pulse Oximeter Pulse Oximeter Pulse Oximetry (%) 97 97 Oxygen Delivery Method Room Air Room Air Intake Visit Reasons: Right L4-L5, L5-S1 facet inj Allergies No Known Allergies Allergy (Verified 08/28/24 09:30) HPI HPI Right L4-L5, L5-S1 facet inj: Details: Patient presents for scheduled procedure. Denies any recent cough, cold, infection, fever or other significant changes in medical history since last office visit. [facility] Medical History (Updated 09/01/24 @ 10:25 by Enio Phillips MD) Hyperlipidemia Atrial fibrillation Hypertension Physical Exam Vital Signs: Last Vital Signs Pulse 61 10/01/24 08:55 BP 148/82 H 10/01/24 08:55 Pulse Ox 97 10/01/24 08:55 Oxygen Delivery Method Room Air 10/01/24 08:55 Office Procedures Lumbar/Sacral Facet Inj Details: Lumbar Intra-articular Facet Injections, Right, L4/L5, L5/S1 After obtaining written consent, pre-procedure blood pressure and pulse were recorded and are in the nursing record for review. The patient was placed in a prone position. The respective lumbosacral area was prepped with chloraprep and draped in sterile fashion. The target facet joints were visualized using ipsilateral oblique fluoroscopy to reveal the joint line. The skin over the target facet joints was anesthetized with 0.5% lidocaine. A 22 gauge 3.5 inch needle with a small bend on the tip was advanced towards the target facet joint under fluoroscopic guidance until bony contact. The needle was then maneuvered and rotated until it slid into the joint slightly. No paresthesias were elicited with needle placement and aspiration was negative for blood and CSF. Next, 20 mg of triamcinolone was injected (0.5cc total per level). The identical procedure was performed at both levels. The skin was cleansed and a sterile bandage was applied. Following the procedure the patient's vital signs were stable. The patient tolerated the procedure well and no complications were encountered. Following the procedure the patient's vital signs were stable. The patient was discharged home in good condition with post-procedural instructions. Time Out: Immediately prior to the procedure, the following was verbally confirmed that there is a signed consent form and that the correct patient, planned procedure, site and side are consistent with documentation and that necessary equipment and/or blood products are available prior to the start of the case. Complications: none EBL: <5 cc 14546 - with Fluoroscopy 39535 - second level, with Fluoroscopy Procedure code (CPT) selection complete Assessment & Plan Assessment & Plan (1) Lumbar spondylosis: Code(s): M47.816 - Spondylosis without myelopathy or radiculopathy, lumbar region Category: Medical Plan Patient is status post right L4-5 and L5-S1 intra-articular facet injections. Patient tolerated procedure well and was discharged home in stable condition with discharge instructions. All questions were answered. We will follow-up via telephone or in clinic to assess response to therapy. A follow-up appointment was made during today's visit. Orders: Orders FL guidance in treatment room Today M47.816 - Spondylosis without myelopathy or radiculopathy, lumbar region Coding Level of Care Code Procedure Only Diagnoses Lumbar spondylosis M47.816 CPT Codes Facet Injection-Lumbar/Sacral - CPT: 17004 - with Fluoroscopy ([id number]) Facet Injection-Lumbar/Sacral - CPT: 45419 - second level, with Fluoroscopy ([id number])
--- OUTSIDE RECORDS SUMMARY | 2024-10-01 09:11 | XMS_ITS | Continuity of Care Document ---
Author Organization [facility], [facility] Address [address] [place] [address] Assessment Encounter Date Assessment Date Assessment LastModified by Organization Details LastModified Time 07/06/2024 07/06/2024 [id number] [place] [id number] (FAMILY SPECIALIST) MDM MODERATE MUST MEET 2 OUT OF [...] By Organization Details Last Modified Time 07/06/2024 [id number] deciding about surgery for a herniated disc Not available 07/06/2024 12:25:32 pulse oximetry* Not available 07/06/2024 12:25:33 chronic cough: care instructions Not available 07/06/2024 12:25:32 Reason for Referral None Reported. Results Created Date Observation Date Name Description Value Unit Range Abnormal Flag Note LastModifiedBy Organization Detail LastModifiedTime 07/06/2007/06/2024 pulse oxime try* Result 98 Not Available [address], [place], [address], 06/17/2024 11:06:13 Result Notes None recorded. 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 317157287 Active 2018 Not Available [employer] 1 15:23:27 Costal chondrit is 00066655 Active 2020 WYATT VELA [address] [place] [address], [address], [facility] 1 09:46:57 Atrial fibrilla tion 07337878 Active 2021 WYATT VELA [address] [place] [address], [address], [facility] Internal [facility] 2 11:24:00 Cough 22447147 Active 2021 Ranjit Foster DO [address] [place] [address], [address], [facility] 2 10:05:39 Edema of lower extremit y 553712121 Active 2022 Ranjit Foster DO [address] [place] [address], [address], [facility] 3 15:51:56 Dyspnea on exertion 10676826 Active 2022 Ranjit Foster DO [address] [place] [address], [address], [facility] 3 15:52:59 Aortic valve stenosis 82559791 Active 2022 Ranjit Foster, DO [address] [place], [address], [facility] 3 16:54:06 Osteopen ia with high fracture risk 0620971547 69084 Active 2022 Ranjit Foster, DO [address] [place], [address], [facility] 3 16:55:32 Insomnia 929019461 Active 2022 WYATT VELA [address] [place], [address], [facility] 3 08:27:45 Pain of left ankle joint 8655794163 5224270 Active 2022 WYATT VELA [address] [place], [address], [facility] 3 14:24:56 Pain of right knee joint 9073075386 62619 Active 2022 WYATT VELA [address] [place], [address], [facility] 3 14:25:18 Pain of right ankle joint 5123987999 5050935 Active 2022 WYATT VELA [address] [place], [address], [facility] 3 14:25:35 Abdomina l pain 50131611 Active 2023 WYATT VELA [address] [place], [address], [facility] 4 10:50:37 Low back pain 089055177 Active 2023 WYATT VELA [address] [place], [address], [facility] 4 15:10:55 Dizzines s 298760693 Active 2023 WYATT VELA [address] [place], [address], [facility] 4 09:13:58 Dyspnea 306492221 Active 2023 WYATT VELA [address] [place], [address], [facility] 4 09:14:10 Chronic cough 67509823 Active 2023 WYATT VELA [address] [place], [address], [facility] 4 09:18:24 Acute gout 016337824 Active 2023 WYATT VELA [address] [place], [address], [facility] 4 11:40:21 Pain in lumbar spine 136435733 Active 2023 WYATT VELA [address] [place], [address], [facility] 4 11:52:21 Acute bronchit is 00198676 Active 2023 WYATT VELA [address] [place], [address], [facility] 4 11:53:29 COVID-19 338291206 Active 2023 WYATT VELA [address] [place], [address], [facility] 4 10:18:07 Osteopen ia 409064446 Active 2017 Not Available [facility] 15:23:27 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 Casillas) Not Available [facility] 15:23:27 Eczema 63672583 Active 2017 Not Available [facility] 11/02/202 1 15:23:27 Migraine 00341931 Completed 201711/15/2021 Rnajit Foster DO [address] [place] [address], [address], [facility] 2 14:27:24 Gastroes ophageal reflux disease 532884513 Completed 201711/15/2021 with related chronic cough Ranjit Foster DO [address] [place] [address], [address], [facility] 2 14:27:17 Plantar fasciiti s 585819980 Completed 201711/15/2021 Ranjit Foster DO [address] [place] [address], [address], [facility] 2 14:27:43 Polyp of colon 16375116 Active 2017 Not Available [facility] 1 15:23:27 Mitral valve regurgit ation 73042535 Active 2017 tricuspi d regurgit ation Not Available [facility] 1 15:23:27 Restless legs 13531097 Completed 201711/15/2021 Ranjit Foster DO [address] [place] [address], [address], [facility] 2 14:28:43 Essentia l hyperten noemi 89697636 Active 2017 Not Available [facility] 1 15:23:27 Hypercho lesterol emia 54717163 Active 2017 Not Available [facility] 1 15:23:27 Asthma 492937986 Completed 201705/08/2019 Ranjit Foster DO [address] [place] [address], [address], [facility] 9 09:22:38 Problem Notes None recorded. Medical Equipment None Reported. Allergies No known drug allergies Medications Name Sig Start Date Stop Date Status Note LastModified by Organization Details LastModified Time Prescripti on - Prior Authorizat ion Request 08/14 /2018 completed Not Available Not Available Not Available [...] TAKE 1 TABLET BY MOUTH EVERY DAY 2024 active Not Available Not Available Not Avai lable diclofenac 1 % topical gel APPLY 2 GRAMS TOPICALLY TO THE AFFECTED AREA FOUR TIMES DAILY 01/15 completed Not Available Not Available Not Available Eliquis 5 mg tablet TAKE 1 TABLET(5 MG) BY MOUTH TWICE DAILY active Not Available Not Available No t Available Flonase Allergy Relief 50 mcg/actuat ion nasal spray,susp ension Amado 1 spray every day by intranasa l route. 05/27 completed Not Available Not Available Not Available Fluad 65yr up(PF)45 mcg(15 mcgx3)/0.5 mL intramuscu lar syringe 04/29 completed Not Available Not Available Not Available Fluzone High-Dose 4268-3626 (PF) 180 mcg/0.5 mL intramuscu lar syringe [...] Updated DateTime 4 161.93 cm 33.4 kg/m2 30576.3 3 g 56 /min 98 % 98 % 122 mm[Hg] 76 mm[Hg] Mitch Trudi [facility] 4 12:01:52 Social History Question Answer Notes LastModified by [employer] Details LastModified Time Tobacco Smoking Status Never Smoker Not Available [facility] 07/19/2020 03:36:24 What Is Your Level Of Alcohol Consumption? None [id number] Information not available 07/19/2020 What Is Your Level Of Caffeine Consumption? Moderate 2 Cups Per Day [id number] Information not available 07/19/2020 What Is Your Occupation? Retired [id number] Information not available 07/19/2020 What Was The Date Of Your Most Recent Tobacco Screening? 07/06/2024 [email or web address] Information not available 07/06/2024 Do You Use Any Illicit Or Recreational Drugs? No [email or web address] Information not available 11/15/2021 Do You Or Have You Ever Used Any Other Forms Of Tobacco Or Nicotine? No [email or web address] Information not available 03/08/2023 Sex: Unknown Functional Status Question Answer Note LastModified by [employer] Details LastModified Time What is your exercise level? Occasional walking [id number] Information not available 07/19/2020 Mental Status None recorded. Family History Nothing Reported. Medical History No medical history recorded. Gynecological HistoryNo gynecological history recorded. Obstetrics History GPAL:G 0 P 0 0 0 0 Immunizations Vaccine Type Date Status Note Provider Nam e and Address Organization Details Recorded Time Influenza, split virus, quadrivalent, preservative 1 completed Libby magallanes [facility] 06/14/2021 13:41:11 COVID-19, mRNA, LNP-S, PF, 100 mcg/0.5mL dose or 50 mcg/0.25mL dose 1 completed Rhiannon magallanes [facility] 07/18/2021 15:28:26 zoster live 9 christoph magallanes [facility] 11/15/2021 15:14:14 Pneumococcal conjugate PCV 13 5 christoph magallanes [facility] 11/15/2021 15:15:39 Influenza, split virus, quadrivalent, preservative 9 completed Rhiannon Abarca [facility] 06/08/2019 08:39:43 Influenza, split virus, quadrivalent, preservative 0 [facility] 13:52:15 pneumococcal polysaccharide PPV23 9 completed Rhiannon magallanes [facility] 11/15/2021 15:15:23 Tdap 8 christoph Abarca [facility] 05/06/2018 08:39:28 COVID-19, mRNA, LNP-S, PF, 100 mcg/0.5mL dose or 50 mcg/0.25mL dose 1 christoph magallanes [facility] 10/21/2020 09:02:37 COVID-19, mRNA, LNP-S, PF, 100 mcg/0.5mL dose or 50 mcg/0.25mL dose 1 christoph Abarca [facility] 11/14/2020 15:46:25 Influenza, split virus, quadrivalent, preservative 8 [facility] Rhiannon Abarca [facility] 05/06/2018 08:39:05 Past Encounters Encounter ID Performer Location Encounter Start Date Encounter Closed Date Diagnosis/Indication Diagnosis SNOMED-CT Code Diagnosis ICD10 Code Diagnosis Note [id number] Ranjit Foster [facility] [address],[place] [address] 07/06/2024 11:47:10 07/06/2024 13:37:27 Chronic cough 61599381 R05.3 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 91316198 M51.[address] kong if this doesnt work out will try clara bennett Atrial fibrillation 5547 5373 I48.0 has been checked and is doing greatdiscu ssed eliquis she pays $400 per month for thistold her to discuss with cardiol and consider xarelto at 137 per mo Health Concerns Section Related Observation LastModified by Organization Rhoda diaz LastModified Time None Recorded Concern Status LastModified by Organization Details LastModified Time None Recorded Payers Encounter Date Sequence Insurance Name Policy Number Policy Piña Covered Member ID Piña Member ID Guarantor Name 07/06/2024 1 [facility] - MEDICARE ADVANTAGE PLAN (MEDICARE REPLACEMENT HMO) [id number] 1 Kathi Chan [id number] Kathi Chan Notes Date Note Type Note Provider Name a nd Address Organization Details Recorded Time 07/06/2024 text/html here for follow upstates will be seeing dr kong next weekdiscussion re her vaccine she is up to datediscussion re her sleep and she has tried several diff medstold her she should not be afraid of taking a gummy Ranjit Foster, DO [address], [place], [address], [facility] 07/06/2024 12:25:57 OBGyn Episode No OBEpisode recorded.
[2024-10-01 10:03] VITALS: BP 140/74; PULSE 62; O2SAT 97
== END 2024-10-01 10:02 | disposition home or self-care (01) ==
LOC: HO.PMCPRC 08:46
PROVIDERS: PCP Internal Medicine; Visit Provider Internal Medicine
DX: M47.816 Spondylosis without myelopathy or radiculopathy, lumbar region (principal)
CPT/HCPCS: 64493; 64494

== ENCOUNTER 2024-10-01 08:46 | Outpatient (REF) | payer MEDICARE, SELFPAY ==
--- NOTE | ~2024-10-01 | FL_ITS ---
EXAMINATION: FL GUIDANCE ONLY HISTORY: M47.816 - Spondylosis without myelopathy or radiculopathy, lumbar region COMPARISON: None available. TECHNIQUE: Fluoroscopy time: 0.1 minutes. Cumulative Dose: 2.79 mGy. DAP: 0.0211 uGy-m2 (microgray-meter squared). Images: 1. FINDINGS: The image demonstrates needles within 2 adjacent facet joints. FL/FL guidance in treatment room IMPRESSION: Fluoroscopy during procedure. Please see procedure report for additional information. Electronically signed by: Raad Garcia MD 10/05/2024 03:22 PM ANGELA
--- OUTSIDE RECORDS SUMMARY | 2024-10-01 10:13 | XMS_ITS | Data Portability ---
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 Procedures None recorded. Surgeries None recorded. Imaging None recorded. Medication Orders prednison e 10 mg tablet 2023 024 [id number], [address] [place], [place], [id number], 05/26/2024 10:48:26 codeine 10 mg-guaife nesin 100 mg/5 mL oral liquid 2023 024 [facility][id number], [address], [place], [id number], 05/26/2024 10:48:08 Zithromax Z-Bora 250 mg tablet 2023 024 [facility][id number], [address], [place], [id number], 05/26/2024 10:47:58 Patient TargetsNo targets recorded. Patient Instructions Encounter Date Encounter Id Patient Instructions Last Modified By Organization Details Last Modified Time 05/26/2024 [id number] pulse oximetry* Not available 05/26/2024 11:27:21 07/06/2024 [id number] deciding about surgery for a herniated disc Not available 07/06/2024 12:25:32 pulse oximetry* Not available 07/06/2024 12:25:33 chronic cough: care instructions Not available 07/06/2024 12:25:32 Reason for Referral None Reported. Results Created Date Observation Date Name Description Value Unit Range Abnormal Flag Note LastModifiedBy Organization Detail LastModifiedTime 05/26/2005/26/2024 pulse oxime try* Result 98 Not Available [facility] [address] [place] [address] D, [place], [address], 05/25/2024 12:13:50 07/06/2007/06/2024 pulse oxime try* Result 98 Not Available [facility] [address] [facility] [address], [place], [address], 06/17/2024 11:06:13 Result Notes None recorded. 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 WYATT VELA [address] [place], [address], [facility] 1 09:46:57 Atrial fibrilla tion 50712224 Active 2021 WYATT VELA [address] [place] [address], [address], [facility] 2 11:24:00 Cough 40513234 Active 2021 Ranjit Foster DO [address] [place] [address], [address], [facility] 2 10:05:39 Edema of lower extremit y 966724564 Active 2022 Ranjit Foster DO [address] [place] [address], [address], [facility] 3 15:51:56 Dyspnea on exertion 31899017 Active 2022 aRnjit Foster DO [address] [place] [address], [address], [facility] 3 15:52:59 Aortic valve stenosis 61558449 Active 2022 Ranjit Foster DO [address] [place] [address], [address], [facility] 3 16:54:06 Osteopen ia with high fracture risk 2349588304 38228 Active 2022 Ranjit Foster DO [address] [place], [address], [facility] 3 16:55:32 Insomnia 071547297 Active 2022 WYATT VELA [address] [place], [address], [facility] 3 08:27:45 Pain of left ankle joint 0751833904 0012339 Active 2022 WYATT VELA [address] [place], [address], [facility] 3 14:24:56 Pain of right knee joint 6224989131 20537 Active 2022 WYATT VELA [address] [place], [address], [facility] 3 14:25:18 Pain of right ankle joint 7407362302 2936466 Active 2022 WYATT VELA [address] [place], [address], [facility] 3 14:25:35 Abdomina l pain 03246752 Active 2023 WYATT VELA [address] [place], [address], [facility] 4 10:50:37 Low back pain 661432401 Active 2023 WYATT VELA [address] [place], [address], [facility] 4 15:10:55 Dizzines s 211338205 Active 2023 WYATT VELA [address] [place], [address], [facility] 4 09:13:58 Dyspnea 444210680 Active 2023 WYATT VELA [address] [place], [address], [facility] 4 09:14:10 Chronic cough 25016077 Active 2023 WYATT VELA [address] [place], [address], [facility] 4 09:18:24 Acute gout 239675110 Active 2023 WYATT VELA [address] [place], [address], [facility] 4 11:40:21 Pain in lumbar spine 554727460 Active 2023 WYATT VELA [address] [place], [address], [facility] 4 11:52:21 Acute bronchit is 76961278 Active 2023 WYATT VELA [address] [place], [address], [facility] 4 11:53:29 COVID-19 170680458 Active 2023 WYATT VELA [address] [place], [address], [facility] 4 10:18:07 Osteopen ia 855804905 Active 2017 Not Available [facility] 15:23:27 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 Casillas) Not Available [facility] 1 15:23:27 Eczema 88801383 Active 2017 Not Available [facility] 15:23:27 Migraine 40236786 Completed 201711/15/2021 Ranjit Foster DO [address] [place], [address], [facility] 2 14:27:24 Gastroes ophageal reflux disease 290652563 Completed 201711/15/2021 with related chronic cough Ranjit Foster DO [address] [place], [address], [facility] 2 14:27:17 Plantar fasciiti s 873183831 Completed 201711/15/2021 Ranjit Foster, DO [address] [place], [address], [facility] 2 14:27:43 Polyp of colon 31401801 Active 2017 Not Available [facility] 1 15:23:27 Mitral valve regurgit ation 12249194 Active 2017 tricuspi d regurgit ation Not Available [facility] 15:23:27 Restless legs 72543097 Completed 201711/15/2021 Ranjit Foster, DO [address] [place] [address], [address], [facility] 2 14:28:43 Essentia l hyperten noemi 18241007 Active 2017 Not Available [facility] 1 15:23:27 Hypercho lesterol emia 90314082 Active 2017 Not Available [facility] 15:23:27 Asthma 014851273 Completed 201705/08/2019 Ranjit Foster, DO [address] [place] [address], [address], [facility] 9 [...] Relief 50 mcg/actuat ion nasal spray,susp ension [place] 1 spray every day by intranasa l route. 05/27 completed Not Available Not Available Not Available Fluad 65yr up(PF)45 mcg(15 mcgx3)/0.5 mL intramuscu lar syringe 04/29 completed Not Available Not Available Not Available Fluzone High-Dose (PF) 180 mcg/0.5 mL intramuscu lar syringe [...] Updated DateTime 4 161.93 cm 33.9 kg/m2 18518.1 g 66 /min 97 % 97 % 120 mm[Hg] 76 mm[Hg] [facility] 4 08:57:30 Date Recorded Body height Body mass index (BMI) Body weight Heart rate Oxygen saturation Oxygen saturation in Arterial blood by Pulse oximetry Systolic blood pressure Diastolic blood pressure Provider Name and Address Organization Details Last Updated DateTime 4 161.93 cm 33.9 kg/m2 50543.1 g 60 /min 97 % 97 % 120 mm[Hg] 78 mm[Hg] Stephanie Trip [facility] 4 11:27:05 Date Recorded Body height Body mass index (BMI) Body weight Heart rate Oxygen saturation Oxygen saturation in Arterial blood by Pulse oximetry Systolic blood pressure Diastolic blood pressure Provider Name and Address Organization Details Last Updated DateTime 4 161.93 cm 33.9 kg/m2 17590.1 g 60 /min 98 % 98 % 120 mm[Hg] 64 mm[Hg] Stephanie Trip [facility] 4 10:50:07 Date Recorded Body height Body mass index (BMI) Body weight Heart rate Oxygen saturation Oxygen saturation in Arterial blood by Pulse oximetry Systolic blood pressure Diastolic blood pressure Provider Name and Address Organization Details Last Updated DateTime 4 161.93 cm 33.4 kg/m2 04889.3 3 g 56 /min 98 % 98 % 122 mm[Hg] 76 mm[Hg] Mitch Brush [facility] 4 12:01:52 Social History Question Answer Notes LastModified by [facility] Details LastModified Time Tobacco Smoking Status Never Smoker Not Available [facility] 07/19/2020 03:36:24 What Is Your Level Of Alcohol Consumption? None [id number] Information not available 07/19/2020 What Is Your Level Of Caffeine Consumption? Moderate 2 Cups Per Day [id number] Information not available 07/19/2020 What Is Your Occupation? Retired [id number] Information not available 07/19/2020 What Was The Date Of Your Most Recent Tobacco Screening? 07/06/2024 [email or web address] Information not available 07/06/2024 Do You Use Any Illicit Or Recreational Drugs? No [email or web address] Information not available 11/15/2021 Do You Or Have You Ever Used Any Other Forms Of Tobacco Or Nicotine? No [email or web address] Information not available 03/08/2023 Sex: Unknown Functional Status Question Answer Note LastModified by [facility] Details LastModified Time What is your exercise level? Occasional walking [id number] Information not available 07/19/2020 Mental Status None recorded. Family History Nothing Reported. Medical History No medical history recorded. Gynecological HistoryNo gynecological history recorded. Obstetrics History GPAL:G 0 P 0 0 0 0 Immunizations Vaccine Type Date Status Note Provider Nam e and Address Organization Details Recorded Time Influenza, split virus, quadrivalent, preservative 1 completed Libby Kaufman [facility] 06/14/2021 13:41:11 COVID-19, mRNA, LNP-S, PF, 100 mcg/0.5mL dose or 50 mcg/0.25mL dose 1 completed Rhiannon Abarca [facility] 07/18/2021 15:28:26 zoster live 9 christoph Abarca [facility] 11/15/2021 15:14:14 Pneumococcal conjugate PCV 13 5 christoph Abarca [facility] 11/15/2021 15:15:39 Influenza, split virus, quadrivalent, preservative 9 christoph Abarca [facility] 06/08/2019 08:39:43 Influenza, split virus, quadrivalent, preservative 0 completed Libby Kaufman [facility] 06/14/2020 13:52:15 pneumococcal polysaccharide PPV23 9 christoph Abarca [facility] 11/15/2021 15:15:23 Tdap 8 christoph Abarca [facility] 05/06/2018 08:39:28 COVID-19, mRNA, LNP-S, PF, 100 mcg/0.5mL dose or 50 mcg/0.25mL dose [facility] 09:02:37 COVID-19, mRNA, LNP-S, PF, 100 mcg/0.5mL dose or 50 mcg/0.25mL dose 1 christoph Abarca [facility] 11/14/2020 15:46:25 Influenza, split virus, quadrivalent, preservative 8 [facility] 05/06/2018 08:39:05 Past Encounters Encounter ID Performer Location Encounter Start Date Encounter Closed Date Diagnosis/Indication Diagnosis SNOMED-CT Code Diagnosis ICD10 Code Diagnosis Note [id number] Elle Hudson [facility] [address] [place] [address] 01/22/2018 14:56:18 01/22/2018 15:43:27 Asthma 180166604 J45.909 Essential hypertension 05750758 I10 d/c amlodipine start diltiazem f/u in 1 month for BP recheck Peripheral edema 7574440 00 R60.9 b/l - likely related to amlodipine possibly related to venous stasis, though there are no chronic signs of stasis [id number] Elle Tristan [facility] [address] [place] [address] 03/26/2018 15:14:38 03/26/2018 15:51:20 Asthma 580817683 J45.909 she does get some exertional shortness of breath with stairs/hil ls. Essential hypertension 49408039 I10 well controlled continue diltiazem Peripheral edema 3481939 00 R60.9 d/c amlodipine did not make noticeable difference low suspicion of dvt, will check ddimer compressio n, elevation, low sodium diet [id number] Ranjit Foster [facility] [address] [place] [address] 04/29/2018 08:48:39 04/29/2018 12:17:46 Adult health examination 943651525 Z00.00 doing excellent no further edema tolerates diltiazem 120 reviewed lab all wnl mammo sched for oct Active or passive immunization 856962875 Z23 pneumovax tdap will look to get Screening for osteoporosis 021184499 Z13.820 bmd ordered Eczema 27560566 L30.9 [place] [id number] Ranjit Foster [facility] [address] [place] [address] [place] [address] 08/22/2018 09:04:01 08/22/2018 11:55:16 Asthma 596100613 J45.909 relates does have exert dyspnea Essential hypertension 26608464 I10 here for bp check and is doing ok Insomnia 291893526 G47.0 0 will start with melatonin and vallerian root Hypercholesterolemia 136 58492 E78.00 stable and will cont current tx [id number] Ranjit Foster [facility] [address] [facility],[place] [address] 10/31/2018 08:47:40 10/31/2018 09:38:11 Insomnia 333273944 G47.00 will start with melatonin and vallerian root Essential hypertension 56441737 I10 here for bp check and is doing ok Hypercholesterolemia 136 36251 E78.00 stable and will cont current tx Burn 593121068 T30.0 discussed local treatment wound is almost healed April Velasquez, ALISTAIR, S [facility] [address] [place] [address],[place] [address] 01/19/2019 11:07:13 01/19/2019 12:17:44 Cough 08085673 R05 If no relief will check CXR Insomnia 237110536 G47.0 0 on temazepam Hypercholesterolemia 136 81189 E78.00 labs completed 10/2018, follow Osteopenia 538395341 M85 .9 reviewed improvemen t in lumbar spine Essential hypertension 63564011 I10 [id number] Ranjit Foster [facility] [address] [place] [address],[place] [address] 05/08/2019 08:47:50 05/08/2019 09:45:13 Essential hypertension 39321166 I10 here for bp check and is doing ok Shoulder pain 48484432 M 25.519 pian seems to be in the ant bicep tendon area and then secondary muscle issues [id number] Ranjit Foster [facility] [address] [facility],[place] [address] 06/15/2019 15:05:35 06/15/2019 16:03:29 Essential hypertension 41915761 I10 here for bp check and is doing ok Neck pain 16638899 M54.2 [id number] December SANDEEP Hudson [facility] [address] [facility],[place] [address] 10/06/2019 13:46:47 10/06/2019 14:43:10 Essential hypertension 86116999 I10 not well controlled Gastroesop hageal reflux disease 347611420 K21.9 quiet Obstructiv e sleep apnea syndrome 03562892 G47.33 currently untreated may be worsened by her weight gain Dyspnea on exertion 6084 5006 R06.09 asthma vs fluid retention Weight gain 3183906 R63. 5 ? water weight Chronic cough 81970947 R 05 ? cough variant asthma will give bronchodil ator Insomnia 842670650 G47.0 0 sleep is stable without meds at present [id number] December SANDEEP Hudson [facility] [address] [facility],[place] [address] 10/30/2019 13:47:55 10/30/2019 15:12:26 Essential hypertension 54240251 I10 improved with increased dose of cartia Gastroesop hageal reflux disease 803077921 K21.9 quiet Obstructiv e sleep apnea syndrome 35592538 G47.33 currently untreated may be worsened by her weight gain Dyspnea on exertion 6084 5006 R06.09 feels this is better, xr and echo was fine Weight gain 0608079 R63. 5 has improved, started watching her diet especially the junk food Chronic cough 45553375 R 05 asthma - unlikley no response to breo or proairLPR unlikely - had a pH probe which was negative in the past,post nasal drip possible - trial flonase + allergy meds and suggest seeing ENT if that fails Insomnia 299390151 G47.0 0 sleep is stable without meds at present [id number] WYATT VELA [facility] [address] [facility],[place] [address] 05/09/2020 10:53:35 05/09/2020 12:10:00 Cyst of abdomen 759097329 R19.00 will check on US to see if anything going on Essential hypertension 16991866 I10 BP is excellent today Hypercholesterolemia 136 89692 E78.00 needs lipid re check for annual exam Vitamin D deficiency 347 24292 E55.9 will re check vitamin D level Insomnia 921166634 G47.0 0 will try trazodone and see if she is less drowsy with this than with the tanzepam [id number] Ranjit Foster DO [facility] [address] [facility] [place] [address] 05/27/2020 10:55:31 05/27/2020 14:01:01 Essential hypertension 71188511 I10 here for bp check and is doing ok Adult heal th examination 293187869 Z00.00 doing excellent no further edema tolerates diltiazem 120 reviewed lab all wnl mammo sched for oct Active or passive immunization 238299210 Z23 pneumovax done tdap had no issue needs influ Mass of ivey bcutaneous tissue of abdominal wall 5726521832 6625759 R22.2 [id number] WYATT VELA [facility] [address] [place] [address],[place] [address] 06/20/2020 11:04:13 06/20/2020 12:33:38 Consultation 20074309 Z00.00 the patient wanted to know what her results indicated will review report when she comes in [id number] WYATT VELA [facility] [address] [place] [address],[place] [address] 07/13/2020 09:50:26 07/13/2020 10:53:35 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 Chicas and have pt fu with them [id number] WYATT VELA [facility] [address] [place] [address],[place] [address] 08/16/2020 10:31:09 08/16/2020 13:34:37 Cough 55104977 R05 will try allergy medication and see if improvemen t Insomnia 101350551 G47.0 0 doing well on trazodone [id number] Ranjit Foster DO [facility] [address] [facility],[place] [address] 10/21/2020 08:56:36 10/21/2020 10:43:03 Abdominal pain 65446279 R10.9 plan to have her stop the simvastati n will have her cut down dramatical ly on dairy we will order the CT abd Essential hypertension 92684234 I10 here for bp check and is doing ok Gastroesop hageal reflux disease 707022660 K21.9 she will cont the omeprazole Hypercholesterolemia 136 20242 E78.00 stable but given abd sympt we will have her hold the simvastati n Insomnia 192502951 G47.0 0 alll her otc supp have been stooppped and this has helped a great deal and shee is finally sleeping [id number] Ranjit Foster [facility] [address] [facility] [place] [address] 11/11/2020 11:57:08 11/11/2020 12:41:11 Left lower quadrant pain 670269590 R10.[address] exam [place] [id number] Ranjit Foster DO [facility] [address] [facility],[place] [address] 05/05/2021 11:55:12 05/05/2021 14:29:13 Costal chondritis 45368076 M94.0 has very distinct point tenderness T 9 -8 lateral rib at the costal chondral junctionwe will get xray and start treatment with diclofenac gel and tablet Had a chat to patient 18 6105536 Z71.9 discussed the 3rd dose of covid vaccine Insomnia 802825328 G47.0 0 nothing has helped and she is getting frustrated will try benadryl warned about lorazepam [id number] Ranjit Foster [facility] [address] [facility],[place] [address] 05/24/2021 08:51:46 05/24/2021 09:34:26 Essential hypertension 67168522 I10 here for bp check and is doing ok but is sl elevated we will have her check at home and we are going to see her back in a month Gastroesop hageal reflux disease 559977217 K21.9 she will cont the omeprazole Laryngopha ryngeal reflux 252242119 K21.9 believe is the culprit for the cough so we will cont omeprazole [id number] WYATT VELA [facility] [address] [facility],[place] [address] 07/10/2021 10:00:53 07/10/2021 10:51:33 Essential hypertension 47677078 I10 BP is elevated Edema of l ower extremity 529816353 R60.0 will fu with vascular referral and furosemide in the meantime Insomnia 232445303 G47.0 0 given instructio n for use of the ZZZqu[place] [id number] [facility] [address] [facility],[place] [address] 07/18/2021 11:20:07 07/18/2021 12:06:40 Edema of lower extremity 905651700 R60.0 will fu with STAT US r/o DVT left leg [id number] WYATT VELA [facility] [address] [facility],[place] [address] 08/09/2021 09:20:03 08/09/2021 12:01:47 Hypercholesterolemia 22075962 E78.2 stable Essential hypertension 80454468 I10 BP is fine today Insomnia 023971139 G47.0 0 will continue Costal chondritis 046280 04 M94.0 sounds like costal chondritis based on symptom presensati on and that fact in started before surgery comes in flares not constant [id number] WYATT VELA [facility] [address] [facility],[place] [address] 11/03/2021 10:48:21 11/03/2021 14:23:29 Essential hypertension 51763204 I10 will add carvedilol on to her medication listwould like to avoid diuretic as she is already taking lasix and she is 81 years old [id number] Ranjit Foster, [facility] [address] [facility],[place] [address] 11/15/2021 13:47:40 11/15/2021 14:44:35 Active or passive immunization 929046258 Z23 pneumovax done tdap had no issue needs influ Adult heal th examination 746695197 Z00.00 doing excellent no further edema tolerates diltiazem 120 reviewed lab all wnl except her vit d is 16 she needs to take supplememn t fo r 3 months mammo sched for oct Essential hypertension 61604623 I10 here for bp check and is doing ok but is sl elevated we will have her check at home and we are going to see her back in a monthsat echo in detail [id number] WYATT VELA [facility] [address] [facility],[place] [address] 04/04/2022 10:59:09 04/04/2022 13:21:57 Active or passive immunization 349208045 Z23 patient advised she is due for shingles Atrial fibrillation 4943 6004 I48.0 will send referral to make sure they have the [place]atio [place] [id number] Ranjit Foster DO [facility] [address] [facility],[place] [address] 05/25/2022 07:57:21 05/25/2022 11:41:19 Atrial fibrillation 21633602 I48.0 cardiovert ed and doing okwe will need to see her in a couple weekswill get minimal ekg strip while here Essential hypertension 28077129 I10 here for bp check and is doing ok but is sl elevated we will have her check at home and we are going to see her back in a monthsat echo in detail Obstructiv e sleep apnea syndrome 86300016 G47.33 no issues Cough 78995544 R05.9 ongoing for the last 2 monthsalle rgies for cause of post nasal will ask her to take zyrtec [id number] Ranjit Foster, [facility] [address] [facility],[place] [address] 07/02/2022 11:56:32 07/02/2022 14:17:54 Active or passive immunization [id number] Z23 patient due for flu & shingles Atrial fibrillation 4943 6004 I48.0 cardiovert ed and doing okwe will need to see her in a couple weekswill get minimal ekg strip while here Essential hypertension 24331169 I10 here for bp check and is doing ok but is sl elevated we will have her check at home and we are going to see her back in a monthsat echo in detail Cough 96179181 R05.9 ongoing for the last 2 monthsalle rgies for cause of post nasal had her to take zyrtec but this didnt helpshe states she is sick of coughingsh e has trelegy and albuterol at home and is not getting better with coughwe will have her try nasal flonasept willcall back with up to date [id number] Ranjit Foster, [facility] [address] [facility],[place] [address] 08/24/2022 10:01:35 08/24/2022 11:33:47 Essential hypertension 71586151 I10 here for bp check and is doing ok but is sl elevated we will have her check at home and we are going to see her back in a monthsat echo in detail Atrial fibrillation 4943 6004 I48.0 has been checked and is doing great [id number] Ranjit Foster, [facility] [address] [facility],[place] [address] 01/15/2023 14:48:59 01/15/2023 15:59:39 Atrial fibrillation 97800265 I48.0 has been checked and is doing great Essential hypertension 16478429 I10 here for bp check and is doing ok but is sl elevated we will have her check at home and we are going to see her back in a monthsat echo in detail Edema of l ower extremity 233918835 R60.0 Dyspnea on exertion 6084 5006 R06.09 Osteopenia 722983663 M85 .80 [id number] Ranjit Foster, [facility] [address] [facility],[place] [address] 02/01/2023 07:56:21 02/04/2023 08:32:59 Essential hypertension 85040392 I10 here for bp check and is doing ok but is sl elevated we will have her check at home and we are going to see her back in a monthsat echo in detail Edema of l ower extremity 844131726 R60.0 stable Aortic valve stenosis 60 805538 I35.0 echo shows only mild disease EF is 65% Osteopenia with high fracture risk 8557902815 67759 M85.80 reviewed bone density and we will cont to follow discussed fall risks [id number] WYATT VEAL [facility] [address] [facility],[place] [address] 03/08/2023 13:29:57 03/08/2023 15:44:38 Atrial fibrillation 28191459 I48.0 agreed to holter to determine how frequently she is in atrial fibrillati onswitch to simvastati n 20 mgcontinue on eliquis [id number] WYATT VELA [facility] [address] [facility],[place] [address] 05/22/2023 13:49:55 05/22/2023 15:00:49 Pain of left ankle joint [id number] 3084135 M25.572 will set up with ankle XR left Pain of ri ght ankle joint 8052097273 5754868 M25.571 will set up ankle XR right [id number] WYATT VELA [facility] [address] [facility],[place] [address] 10/15/2023 08:47:16 10/15/2023 13:54:56 Abdominal pain 97192546 R10.[address], see if anything [id number] WYATT VELA [facility] [address] [facility],[place] [address] 11/08/2023 14:35:24 11/11/2023 14:15:07 Atrial fibrillation 37051612 I48.0 agreed to holter to determine how frequently she is in atrial fibrillati onswitch to simvastati n 20 mgcontinue on eliquis Low back pain 457631836 M54.51 will fu with second opinion for the arthritis treatment [id number] WYATT VELA [facility] [address] [facility],[place] [address] 01/14/2024 09:01:23 01/14/2024 09:49:48 Dizziness 117076783 R42 probably combinatio n of insomnia and low BP Dyspnea 892976044 R06.02 not cardiac Chronic cough 35776048 R 05.3 needs refill Insomnia 798208295 G47.0 0 will continue [id number] WYATT VELA [facility] [address] [facility],[place] [address] 01/31/2024 10:01:13 02/03/2024 12:05:51 Depression screening 071067013 Z13.31 negative Dizziness 971531242 R42 low BP defwill cut back her carvedilol [id number] WYATT VELA [facility] [address] [facility],[place] [address] 02/21/2024 09:20:50 02/21/2024 10:20:52 Edema of lower extremity 855679679 R60.0 stop combo pill drop to just the HTCZ 12.5 f/u in one weeks Essential hypertension 44798680 I10 will drop to the 12.5 mg carvedilol BID instead [id number] WYATT VELA [facility] [address] [facility],[place] [address] 02/28/2024 09:35:46 02/28/2024 14:48:19 Low back pain 268912529 M54.51 seeing [facility] ed TENS unit, when she comes back it Essential hypertension 37578648 I10 BP is still greatwill fu with patient in a moswill keep an eye on her [id number] WYATT VELA [facility] [address] [facility],[place] [address] 03/30/2024 08:52:43 2024 09:17:25 Atrial fibrillation 68822701 I48.0 stable Dizziness 577929900 R42 stable [id number] WYATT VELA [facility] [address] [facility],[place] [address] 04/20/2024 11:08:24 04/20/2024 13:22:31 Acute gout 967317937 M10.072 will start on prednisone taper and check her uric acid levels Pain in lumbar spine 267 368598 M54.51 will fu with PSS [id number] WYATT VELA [facility] [address] [facility],I[address] [place] [address] 04/28/2024 09:30:08 04/28/2024 16:08:03 Acute bronchitis 12063602 J20.8 will set up with rosanne lipscomb and cough suppressan t [id number] Ranjit Foster [facility] [address] [facility],[address] [facility] [address] 05/26/2024 10:41:14 05/26/2024 11:33:27 Active or passive immunization 656042985 Z23 patient due for flu & shingles Adult heal th examination 884526583 Z00.00 doing excellent no further edema tolerates diltiazem 120 reviewed lab all wnl except her vit d is 16 she needs to take supplememn t fo r 3 months mammo sched for oct Atrial fibrillation 4943 6004 I48.0 has been checked and is doing great Essential hypertension 70081342 I10 here for bp check and is doing ok but is sl elevated we will have her check at home and we are going to see her back in a monthrevie wed echo in detail Hypercholesterolemia 136 28493 E78.2 taking the the simvastati n Dyspnea on exertion 6084 5006 R06.09 she will start walking 10 min per day i believe a lot of this sob is deconditio sloan she has had a major cardiac work up and this was all normal [id number] Ranjit Foster DO [facility] [address] [facility],[place] [address] 07/06/2024 11:47:10 07/06/2024 13:37:27 Chronic cough 06620980 R05.3 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 44656359 M51.[address] kong if this doesnt work out will try [facility] Atrial fibrillation 4943 6004 I48.0 has been checked and is doing [...] Piña Member ID Guarantor Name 03/30/2024 1 [facility] - MEDICARE ADVANTAGE PLAN (MEDICARE REPLACEMENT HMO) [id number] Kathi Chan [id number] Kathi Chan 04/20/2024 1 [employer] - MEDICARE ADVANTAGE PLAN (MEDICARE REPLACEMENT HMO) [id number] 1 Kathi Chan [id number] Kathi Chan 04/28/2024 1 [employer] - MEDICARE ADVANTAGE PLAN (MEDICARE REPLACEMENT HMO) [id number] 1 Kathi Chan [id number] Kathi hCan 05/26/2024 1 [employer] - MEDICARE ADVANTAGE PLAN (MEDICARE REPLACEMENT HMO) [id number] 1 Kathi Chan [id number] Kathi Chan 07/06/2024 1 [employer] - MEDICARE ADVANTAGE PLAN (MEDICARE REPLACEMENT HMO) [id number] 1 Kathi Chan [id number] Kathi Chan Notes Date Note Type Note Provider Name a nd Address Organization Details Recorded Time 4 text/html ER f/u the patient reports that [...] has no other concerns today WYATT VELA [address] [place] [address], [place], [address], [facility] 03/30/2024 09:17:14 4 text/html c/o swelling in the left big toe the patient reports that she developed acute onset, leg big toe pain and swellingwarm, red and very tender to the the patient last injection for her back was September in 2022talking to Dr. Tellez about getting an injectionwill have net front end developer call about it since her insurance will pay for it, doesn't want the ablation will f/u with patient after we talk to there office WYATT VELA [address] [place], [address], [facility] 04/20/2024 11:54:38 4 text/html c/o sick symptoms The patient is participating in this appointment [...] call with COVID results tomorrow WYATT VELA [address] [place], [address], [facility] 04/28/2024 11:59:06 4 text/html did ok fro the gout wondering about meds etcshe has had some exertional dyspnea has been ongoing for years Ranjit Foster DO [address] [place], [address], [facility] 05/26/2024 11:28:30 4 text/html Annual WellnessReported bypatient.Diet and Nutrition:healthy diet [...] of hearing Vision:no vision problems Ranjit Foster DO [address] [place] [address], [address], [facility] 05/26/2024 11:28:30 4 text/html here for follow upstates will be seeing dr kong next weekdiscussion re her vaccine she is up to datediscussion re her sleep and she has tried several diff medstold her she should not be afraid of taking a gummy Ranjit Foster DO [address] [place], [address], [facility] 07/06/2024 12:25:57 OBGyn Episode No OBEpisode recorded.
== END 2024-10-01 08:47 | disposition home or self-care (01) ==
LOC: CF 08:46
PROVIDERS: PCP Internal Medicine; Visit Provider Internal Medicine
DX: M47.816 Spondylosis without myelopathy or radiculopathy, lumbar region (principal)
CPT/HCPCS: 64493; 64494; Q9967

== ENCOUNTER 2024-11-11 10:30 | Outpatient (AMB) | payer MEDICARE, SELFPAY ==
--- NOTE | 2024-11-11 10:35 | A.OFFVIS_ITS ---
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 The injections provided minimal relief, with symptoms recurring after approximately one week. Her lower back pain, described as an oppressive weight, intensifies with standing and walking and improves with sitting. She has no pain when sitting, pointing to spinal stenosis. 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 No radicular symptoms were present. Previous imaging suggested arthritis and disc space narrowing. The patient has no lower extremity radicular symptoms. Pain Description - Onset: Details unclear from the conversation. - Quality: Described as a heavy weight; no specific adjectives provided. - Location: Lower back. - Radiation: No radiation to the legs or buttocks. - Exacerbating Factors: Standing and walking, especially prolonged standing. - Relieving Factors: Sitting; walking improves morning stiffness. - Interference: Affects capability to stand for prolonged periods, such as cooking. Physical Exam - Appears afebrile. - Alert and oriented. - Mood and affect appropriate. - Follows and participates in conversation appropriately. - Respiratory effort is unlabored. - Able to transition from sit to stand unassisted. - Ambulates with bilaterally normal heel strike and toe off. - Able to stand and walk on toes and heels. Results - Tests and Diagnostics: Prior x-ray showing initial stages of arthritis and disc space narrowing in alignment with degenerative changes. Pain Management - Affect: The patient's primary concern is pain management and reduced functionality due to back pain. - Analgesia: Previous cortisone injections provided temporary relief; considering an updated MRI for further intervention strategy. - Adverse Effects: None reported directly secondary to cortisone injections. - Activities of Daily Living: Pain interferes with extended standing activities, such as cooking. - Aberrant Drug Related Behaviors: None reported. [facility] Medical History (Updated 11/11/24 @ 10:51 by Enio Phillips MD) Hyperlipidemia Atrial fibrillation Hypertension Physical Exam Vital Signs: Last Vital Signs Pulse 62 11/11/24 10:37 Resp 16 11/11/24 10:37 BP 148/72 H 11/11/24 10:37 Pulse Ox 96 11/11/24 10:37 Oxygen Delivery Method Room Air 11/11/24 10:37 BMI result Body Mass Index 34.5 Assessment & Plan Assessment & Plan (1) Lumbar spinal stenosis: Code(s): M48.061 - Spinal stenosis, lumbar region without neurogenic claudication Category: Medical Plan Plan Management will concentrate on spinal stenosis and associated osteoarthritis with a view towards improved pain relief following the subdued response to previous injections. An MRI will aid in refining the therapeutic approach, potentially leading to targeted injections at a new site or minimally invasive procedures, depending on the findings. Plans remain contingent on insurance approval and subsequent scheduling of the MRI. Patient was informed and verbally consented to the use of an ambient scribe for clinic note documentation during this visit. Discussion Notes I discussed with the patient the likelihood of spinal stenosis being the primary cause of her symptoms, given the relief she experiences with sitting and exacerbation with standing and walking. Despite the recent injections not providing lasting relief, I explained the role of updated imaging to guide further interventions. Potential alternatives include targeted injections or minimally invasive procedures should imaging support these options. We agreed on proceeding with the MRI contingent on insurance approval, and I recommended coordinating follow-up based on the MRI scheduling. The patient was open to discussing therapeutic options post-MRI. Patient Instructions - Await a call from radiology to schedule the MRI. - Contact the office to schedule a follow-up appointment after the MRI date is confirmed. - Monitor symptoms and note any changes, particularly any radiation to the legs. - Report any significant changes or new symptoms promptly. Orders: Orders MR lumbar spine wo con 11/11/24 M48.061 - Spinal stenosis, lumbar region without neurogenic claudication Coding Level of Care Code Est Pt Level 3 (44190) Diagnoses Lumbar spinal stenosis M48.061
[2024-11-11 10:37] VITALS: BP 148/72; PULSE 62; RESP 16; O2SAT 96; BMI 34.5
--- OUTSIDE RECORDS SUMMARY | 2024-11-11 12:55 | XMS_ITS ---
Author Organization [facility] Address [address] [place] [address] Care Team Providers Care Senior Energy Market Coordinator Name Role Phone Kat GORDILLO, aRnjit Primary Care Provider Marciano Unger Unavailable [phone] Dixie Degroot [phone] Encounters Encounter Location Date Provider Diagnosis [address] [address] 08/31/2024 Dixie Degroot Plan Of Treatment Next Appt Details Provider Name:Marciano Mane , 12/15/2024 08:45:00 AM, [address] [place] [address], [address], Progress Notes * Anup HEBERTOB:1940 ([age] yo F)Acc No.[id number]:08/31/2024 Progress Note Patient:?Kathi HEBERT Provider:?Dixie Degroot DPM :1940???Age:84 Y???Sex:Female D ate:08/31/2024 Address:[address] [place], [place] [address]y [facility] , [address], [place] Pcp:Ranjit Stephens MD Subjective: * Chief Complaints: * ??? * Medical History:? Objective: * Vitals:? Assessment: Plan: * Treatment: * Images: * The named appointment provid er may or may not be the originator of this progress note, and it is not deemed complete until electronically signed by the appointment provider. Sign off status: Pending * Provider:?Dixie Degroot DPM Date:?1 11/01/2023 Generated for Anam monge/Chalo/Wallace on:?11/11/2024 12:55 PM EST
--- OUTSIDE RECORDS SUMMARY | 2024-11-11 12:55 | XMS_ITS ---
Author Organization [facility] Address [address] [place] [address] Care Team Providers Care Equipment Maintenance Technician Name Role Phone Ranjit Stephens MD Primary Care Provider Marciano Unger Unavailable [phone] Allergies No Known Allergies REASON FOR VISIT At Risk Footcare, Painful Nail(s) aggravated by shoes and causing difficulty standing/walking. Medications Medication SIG (Take, Route, Frequency, Duration) Notes Start Date End Date Status Triamterene-HCTZ 37.5-25 MG 1 tablet in the morning Orally Once a day for 30 day(s) Not-Taking Simvastatin 20 MG as directed Orally Once a day Active Carvedilol 6.25 MG 1 tablet with food Orally Twice a day Active eliquis 5 mg as directed Activ e Flecainide Acetate A ctive Omeprazole 20 MG 1 capsule 30 minutes before morning meal Orally Once a day for 30 day(s) Not-Taking Dilt-CD diltiazam Not-Taking Benadryl Allergy 25 MG 1 tablet at bedtime as needed Orally Once a day for 30 day(s) Not-Taking Diclofenac Not-Takin g hydroCHLOROthiazide Active Social History Tobacco Use: Social History Observation [...] Problem Status W/U Status Risk Notes Problem Atherosclerosis of galena artery of both lower extremities, with unspecified presence of clinical manifestation (I70.203) Active confirmed Q7(A), Q8(2B), Q9(1B,2C) Vital Signs Height 5ft 2.5in in 09/01/2024 Weight 172 lbs 09/01/2024 BMI 30.95 kg/m2 09/01/2024 Blood pressure systolic 125 mm Hg 09/01/20 24 Blood pressure diastolic 60 mm Hg 024 Procedures Procedure Date Ordered Date Performed Result Body Sit e 81829-QTSJQSI NAIL, 1-5 09/01/2024 N/A 52149-RKGV SKIN LESIONS, OVER 4 09/01/2024 N/A E3757-TKTQLQJJ DYSTROPHIC NAILS ANY # 09/01/2024 N/A Encounters Encounter Location Date Provider Diagnosis [facility] [address] [place] [address] 09/01/2024 Marciano Mane Atherosclerosis of galena artery of both lower extremities, with unspecified presence of clinical manifestation I70.203 ; Tinea unguium B35.1 ; Pain in right toe(s) M79.674 and Pain in left toe(s) M79.675 Assessments Encounter Date Diagnosis (ICD Code) Assessment Notes Treatment Notes Treatment Clinical Notes Section Notes 09/01/2024 Atherosclerosis of galena artery of both lower extremities, with unspecified presence of clinical manifestation (ICD-10 - I70.203) Q7(A), Q8(2B), Q9(1B,2C) 09/01/2024 Tinea unguium (ICD-10 - B35.1) 09/01/2024 Pain in right toe(s) (ICD-10 - M79.674) 09/01/2024 Pain in left toe(s) (ICD-10 - M79.675) Plan Of Treatment Pending Test Test Name Order Date 83065-FVANXRW NAIL, 1-5 09/01/2024 97512-KVXL SKIN LESIONS, OVER 4 09/01/20 24 K9907-DABGZUEH DYSTROPHIC NAILS ANY # Next Appt Details Follow Up: prn, Reason: Provider Name:Marciano Mane , 12/15/2024 08:45:00 AM, [address] [place], [address], Procedure Notes * Category Sub-Category Detail Notes Keratoma Treatment Parring or Cutting o f Benign Hyperkeratotic Lesion(s) (-57) More than 4 Lesions - Due to the at risk nature of the patients medical condition as documented in the exam findings, performance of this keratoderma treatment is medically necessary as its management by an unskilled/untrained nonprofessional would put this patients foot and overall health at risk. Therefore, the benign hyperkeratotic lesions, ( 9) in total, locations as stated and described in the exam ( Medial plantar, IPJ, TA, Medial plantar, IPJ, T5, SUB MTH (s), 1, B/L, SUB MTH (s), 3, Right, SUB MTH (s), 5, B/L, Plantar Heel(s), B/L), were pared, and/or cut utilizing a sterile 15 blade, tissue nippers, and/or power dremel instrumentation by the physician of record - 17748, Q8 Debride Nails 1-5 Procedure: Due to the cli nical pathology outlined in the exam findings, performance of this nail treatment is medically necessary as its management by an unskilled/untrained nonprofessional would put this patients foot and overall health at risk. Therefore, debridement to affected nail(s), as described in exam ( TA, T1,T5,T6), was performed exclusively by the physician of record to reduce/remove overall nail length, girth, thickness, subungual debris, and necrotic tissue, by manual and/or electrical means through the use of a nail nipper and/or dremel stylegrinder, to a more viable healthy nail plate or bed tissue 5 nails or fewer in number. Silver nitrate was used for any petechial bleeding as necessary. Definitive antifungal treatment options, both pharmaceutical and surgical, have been reviewed and discussed with the patient. The patient solely prefers the use of intermittent/as needed professional debridement services for their nail condition and understands that additional periodic treatments may be required as necessary to maintain effective symptomatic relief - 79819 Nail Reduction Nail Reduction (-27) Trimming o f all dystrophic nails - Due to the at risk nature of the patients medical condition as documented in the exam findings, performance of this nail treatment is medically necessary as its management by an unskilled/untrained nonprofessional would put this patients foot and overall health at risk. Therefore, the dystrophic nails, in locations as stated and described in the exam ( T2, T3, T4, T7, T8, T9), were debrided by the phisician of record to reduce/remove overall nail length and girth, by manual and electrical means with use of a nail nipper and/or dremel, to more viable healthy nail plate or bed tissue - G0127, Q8 Progress Notes * Anup HEBERTOB:1940 ([age] yo F)Acc No.[id number]:09/01/2024 Progress Note Patient:?Kathi HEBERT Provider:?Marciano Mane DPM :1940???Age:84 Y???Sex:Female D ate:09/01/2024 Address:[address] [place] [address] , [address] [address] Pcp:Ranjit Stephens MD Subjective: * Chief Complaints: * ???At Risk FootcarePainful N ail(s) aggravated by shoes and causing difficulty standing/walking. * HPI: ???At Risk footcare:?Pt States Last PCP Visit:?Date?06/04/2024 * ROS:?General/Constitutional:?Nausea?denies.?Vomiting?denies.?Hunger Thirst?denies.?Loss appetite?denies.?Chills?denies.?Fatigue?denies.?Fever?denies.?Night Sweats?denies.?Unexplained weight loss?denies.?Unexplained weight gain?denies.?HEENTM:?Dentures?denies.?Dizziness?denies.?Glasses/contacts?denies.?Retinopathy?de nies.?Blurred/double vision?denies.?TMJ?denies.?Discharge/drainage?denies.?Implants?denies.?Sore throat?denies.?Dental implants?denies.?Hard of hearing ?denies.?Difficulty chewing/swallowing/speaking?denies.?Nose bleeds?denies.?Sore mouth?denies.?Respiratory:?On Oxygen?denies.?Pneumonia/pleurisy?denies.?Bronchitis?denies.?Emphysema?denies.?C oughing?denies.?Cough blood?denies.?Shortness of breath?denies.?Wheezing?denies.?Cardiovascular:?Pacemaker?denies.?MVP?denies.?WPW?denies.?CHF?denies.?Heart attack?denies.?Septal defect?denies.?Rapid beat?denies.?Chest pain ?denies.?Atrial Fib.?admits.?Murmur/Palpitations?denies.?Gastrointestinal:?Hemorrhoids?denies.?Stomach/Abdominal pain?denies.?Dark blood stool?denies.?Irritable bowel ?denies.?Constipation?denies.?Diarrhea?denies.?Hematology:?Swelling?admits.?Clots?denies.?Varicose Veins?admits.?Bruising?admits, on anticoagulants.?Bleeding problem?admits, on anticoagulants.?Genitourinary:?Blood urine?denies.?Frequent/Painfu/urination/bladder control?denies.?Kidney stones?denies.?Infection (UTI)?denies.?Nephropathy?denies.?sex trans dis (STD)?denies.?Prostate?denies.?Musculoskeletal:?Hammertoes?denies.?Bunions?denies.?Back Pain?denies.?Muscle Cramps/ Resting?denies.?Muscle cramps / walking?denies.?Generalized aches and pains?denies.?Weakness?denies.?Integ.:?Chow?denies.?Scars?denies.?Corns/calluses?admits.?Ingrown nails?admits.?Painful nails?admits.?Open Sores?denies.?Rashes?denies.?Neurologic:?Difficulty sleeping?admits.?Brain disorder?denies.?Numbness?denies.?Balance trouble?denies.?Confusion?denies.?Fainting/blackouts?denies.?Tingling?denies.?Tr emors?denies.? * Medical History:? * Surgical History:?colonoscop y * Hospitalization/Major Diagno stic Procedure:?[facility]pt[facility]ales [facility]ib few hrs noemi [facility]- [facility] 10/2023 * Family History:?Mother: [...] yes, walking. ?Marital status: . 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 * Medications:?TakinghydroCHLO ROthiazide Flecainide Acetate Carvedilol 6.25 MG Tablet 1 tablet with food Orally Twice a day eliquis 5 mg Tablet as directed Simvastatin 20 MG Tablet as directed Orally Once a day Taking hydroCHLOROthiazide Taking Flecainide Acetate Taking Carvedilol 6.25 MG Tablet 1 tablet with food Orally Twice a day Taking eliquis 5 mg Tablet as directed Taking Simvastatin 20 MG Tablet as directed Orally Once a day Not-Taking/PRNTriamterene-HCTZ 37.5-25 MG Tablet 1 tablet in the morning Orally Once a day Diclofenac Dilt-CD , Notes to Pharmacist: diltiazamBenadryl Allergy 25 MG Tablet 1 tablet at bedtime as needed Orally Once a day Omeprazole 20 MG Capsule Delayed Release 1 capsule 30 minutes before morning meal Orally Once a day Medication List reviewed and reconciled with the patientNot-Taking/PRN Triamterene-HCTZ 37.5-25 MG Tablet 1 tablet in the morning Orally Once a day Not-Taking/PRN Diclofenac Not-Taking/PRN Dilt-CD , Notes to Pharmacist: diltiazamNot-Taking/PRN Benadryl Allergy 25 MG Tablet 1 tablet at bedtime as needed Orally Once a day Not- Taking/PRN Omeprazole 20 MG Capsule Delayed Release 1 capsule 30 minutes before morning meal Orally Once a day Medication List reviewed and reconciled with the patient * Allergies:?N.K.D.A.yes[Aller gies Verified] Objective: * Vitals:?Ht: 5ft 2.5in, Wt:17 2, BMI: 30.95, Shoe size:8.5-9, BP:125/60mm Hg, Wt- k.02 kg. * Examination: ???Vascular: ?DP PULSES(B):?1/4, B/L.?PT PULSES(B):? 0/4, B/L.?CAPILLARY FILL TIME:? delayed, all digits, B/L.?TROPHIC CONDITION-TEXTURE/ELASTICITY/TURGOR/HAIR GROWTH(B):? decreased, fragile,?with sparse to absent hair growth, B/L.?TEMPERTURE GRADIENT(C):? decreased, cool to cool, proximal to distal, B/L.?PIGMENTATION:?rubrous, B/L.?EDEMA(C):?2/4, pitting, without aching pain, Leg(s), Ankle(s), Foot, B/L.?CLAUDICATION(C):?denies, B/L.?REST PAIN:?denies, B/L.?PARESTHESIA(C):?absent, B/L.?BURNING(C):?absent, B/L.?Nails: ?NAILS are:?Elongated, overgrown, dystrophic, lytic, greater than 3mm thick, discolored and friable with crumbly malodorous subungual debris, with pain on palpation ( TA, T1,T5,T6, ), all other nails not described with characteristics as possessing mycosis are elongated, overgrown, and dystrophic ( T2, T3, T4, T7, T8, T9).?Dermatologic: ?SKIN FINDINGS:?Skin exam reveals Keratotic lesion(s) located at, Medial plantar, IPJ, TA, Medial plantar, IPJ, T5, SUB MTH (s), 1, B/L, SUB MTH (s), 3, Right, SUB MTH (s), 5, B/L, Plantar Heel(s), B/L.? Assessment: * Assessment: 1.?Tinea unguium - B35.1???2 .?Atherosclerosis of galena artery of both lower extremities, with unspecified presence of clinical manifestation - I70.203 (Primary)???Notes :Q7(A), Q8(2B), Q9(1B,2C)???3.?Pain in right toe(s) - M79.674???4.?Pain in left toe(s) - M79.675??? Plan: * Treatment: 2.?Tinea unguium?Procedure: 83461-TLEHCSM NAIL, 1-5 * Procedures:?Debride Nails 1-5:?Procedure:?Due to the clinical pathology outlined in the exam findings, performance of this nail treatment is medically necessary as its management by an unskilled/untrained nonprofessional would put this patients foot and overall health at risk. Therefore, debridement to affected nail(s), as described in exam (?TA,?T1,T5,T6), was performed exclusively by the physician of record to reduce/remove overall nail length, girth, thickness, subungual debris, and necrotic tissue, by manual and/or electrical means through the use of a nail nipper and/or dremel stylegrinder, to a more viable healthy nail plate or bed tissue 5 nails or fewer in number. Silver nitrate was used for any petechial bleeding as necessary. Definitive antifungal treatment options, both pharmaceutical and surgical, have been reviewed and discussed with the patient. The patient solely prefers the use of intermittent/as needed professional debridement services for their nail condition and understands that additional periodic treatments may be required as necessary to maintain effective symptomatic relief - 78571.?Keratoma Treatment:?Parring or Cutting of Benign Hyperkeratotic Lesion(s)?(-57) More than 4 Lesions - Due to the at risk nature of the patients medical condition as documented in the exam findings, performance of this keratoderma treatment is medically necessary as its management by an unskilled/untrained nonprofessional would put this patients foot and overall health at risk. Therefore, the benign hyperkeratotic lesions, ( 9) in total, locations as stated and described in the exam (?Medial plantar,?IPJ,?TA,?Medial plantar,?IPJ,?T5,?SUB MTH (s),?1,?B/L,?SUB MTH (s),?3,?Right,?SUB MTH (s),?5,?B/L,?Plantar Heel(s),?B/L), were pared, and/or cut utilizing a sterile 15 blade, tissue nippers, and/or power dremel instrumentation by the physician of record - 80790, Q8.?Nail Reduction:?Nail Reduction?(-27) Trimming of all dystrophic nails - Due to the at risk nature of the patients medical condition as documented in the exam findings, performance of this nail treatment is medically necessary as its management by an unskilled/untrained nonprofessional would put this patients foot and overall health at risk. Therefore, the dystrophic nails, in locations as stated and described in the exam ( T2, T3, T4, T7, T8, T9), were debrided by the phisician of record to reduce/remove overall nail length and girth, by manual and electrical means with use of a nail nipper and/or dremel, to more viable healthy nail plate or bed tissue - G0127, Q8.? * Procedure Codes:?G0127 NEENA ING DYSTROPHIC NAILS ANY #, Modifiers: XS , [id number] DEBRIDE NAIL, 1-5, Modifiers: XS 70939 TRIM SKIN LESIONS, OVER 4, Modifiers: XS , Q8 * Follow Up:?prn * Images: * Sign off status: Completed true * Provider:?Marciano Mane DPM Date:?2023 Generated for Anam monge/Chalo/Wallace on:?11/11/2024 12:54 PM EST History and Physical Notes * HPI (History of Present Illness) Category Sub-Category Detail Notes Category Not es At Risk footcare Pt States Last PCP Visit: Date: 4 Examination Category Sub-Category Detail Notes Category Not es Dermatologic SKIN FINDINGS: Skin exam reveal s Keratotic lesion(s) located at, Medial plantar, IPJ, TA, Medial plantar, IPJ, T5, SUB MTH (s), 1, B/L, SUB MTH (s), 3, Right, SUB MTH (s), 5, B/L, Plantar Heel(s), B/L Vascular DP PULSES (B): 1/4, B/L PT PULSES (B): 0/4, B/L CAPILLARY FILL TIME: delayed, all digits , B/L TEMPERTURE GRADIENT (C): decreased, cool to cool, proximal to distal, B/L TROPHIC CONDITION-TEXTURE/ELASTICITY/TURGOR/HAIR GROWTH (B): decreased, fragile, with sparse to absen t hair growth, B/L EDEMA (C): 2/4, pitting, withou t aching pain, Leg(s), Ankle(s), Foot, B/L CLAUDICATION (C): denies, B/L REST PAIN: denies, B/L PIGMENTATION: rubrous, B/L PARESTHESIA (C): absent, B/L BURNING (C): absent, B/L Nails NAILS are: Elongated, overg rown, dystrophic, lytic, greater than 3mm thick, discolored and friable with crumbly malodorous subungual debris, with pain on palpation ( TA, T1,T5,T6, ), all other nails not described with characteristics as possessing mycosis are elongated, overgrown, and dystrophic ( T2, T3, T4, T7, T8, T9)
--- OUTSIDE RECORDS SUMMARY | 2024-11-11 12:55 | XMS_ITS | Data Portability ---
Author Organization [facility], Home Service Address [address] [place] [address] Assessment Encounter Date Assessment Date Assessment LastModified by Organization Details LastModified Time 04/28/2024 04/28/2024 Patient agreed and verbally consents to this audio and video Telehealth appt via a secure platform [email or web address] Not available 04/28/2024 11:55:48 07/06/2024 07/06/2024 [id number] [place] [address] ([employer]ER) MDM MODERATE MUST MEET 2 OUT OF [...] uric acid, serum or plasma 2023 024 [facility], [address] [place] [address], [place], [address], 04/21/2024 11:33:38 Referral None recorded. Procedures None recorded. Surgeries None recorded. Imaging None recorded. Medication Orders codeine 10 mg-guaife nesin 100 mg/5 mL oral liquid 2023 [id number], [address] [place] [address], [place], [phone], 05/26/2024 10:48:08 Zithromax Z-Bora 250 mg tablet 2023 024 [facility] #[id number], [address] [place], [place], [phone], 05/26/2024 10:47:58 prednison e 10 mg tablet 2023 [facility][id number], [address] [place] [address], [place], [phone], 05/26/2024 10:48:26 Patient TargetsNo targets recorded. Patient Instructions Encounter Date Encounter Id Patient Instructions Last Modified By Organization Details Last Modified Time 05/26/2024 [id number] pulse oximetry* Not available 05/26/2024 11:27:21 07/06/2024 [id number] deciding about surgery for a herniated disc Not available 07/06/2024 12:25:32 pulse oximetry* Not available 07/06/2024 12:25:33 chronic cough: care instructions Not available 07/06/2024 12:25:32 Reason for Referral None Reported. Results Created Date Observation Date Name Description Value Unit Range Abnormal Flag Note LastModifiedBy Organization Detail LastModifiedTime 05/26/2005/26/2024 pulse oxime try* Result 98 Not Available [facility] [address] [facility] [address], [place], [address], 05/25/2024 12:13:50 07/06/2007/06/2024 pulse oxime try* Result 98 Not Available [facility] [address] [facility] [address], [place], [address], 06/17/2024 11:06:13 0110/01/2024 fluor oscop y (PROC ) No observ ation record ed. [email or web address] [facility] (Medical Records) [address] [facility], [place], [address], 10/06/2024 08:29:35 Result Notes None recorded. Problems Name Problem SNOMED Code Status Onset Date Resolution Date Notes Provider Name and Address Organization Details Recorded Time Insomnia 693545999 Completed 201711/15/2021 WYATT VELA [address] [place], [address], 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 1 09:46:57 Atrial fibrilla tion 46181519 Active 2021 WYATT VELA [address] [place] [address], [address], [facility] 2 11:24:00 Cough 09713615 Active 2021 Ranjit Foster DO [address] [place] [address], [address], [facility] 2 10:05:39 Edema of lower extremit y 434343098 Active 2022 Ranjit Foster DO [address] [place] [address], [address], [facility] 3 15:51:56 Dyspnea on exertion 99749763 Active 2022 Ranjit Foster DO [address] [place] [address], [address], [facility] 3 15:52:59 Aortic valve stenosis 40529885 Active 2022 Ranjit Foster, DO [address] [place], [address], [facility] 3 16:54:06 Osteopen ia with high fracture risk 5838470765 44329 Active 2022 Ranjit Foster, DO [address] [place], [address], [facility] 3 16:55:32 Insomnia 696775922 Active 2022 WYATT VELA [address] [place], [address], [facility] 3 08:27:45 Pain of left ankle joint 8530904915 0603815 Active 2022 WYATT VELA [address] [place], [address], [facility] 3 14:24:56 Pain of right knee joint 5967890077 31980 Active 2022 WYATT VELA [address] [place], [address], [facility] 3 14:25:18 Pain of right ankle joint 5721430245 0747841 Active 2022 WYATT VELA [address] [place], [address], [facility] 3 14:25:35 Abdomina l pain 97850983 Active 2023 WYATT VELA [address] [place], [address], [facility] 4 10:50:37 Low back pain 820044683 Active 2023 WYATT VELA [address] [place], [address], [facility] 4 15:10:55 Dizzines s 993691197 Active 2023 WYATT VELA [address] [place], [address], [facility] 4 09:13:58 Dyspnea 371050049 Active 2023 WYATT VELA [address] [place], [address], [facility] 4 09:14:10 Chronic cough 93700075 Active 2023 WYATT VELA [address] [place], [address], [facility] 4 09:18:24 Acute gout 927673428 Active 2023 WYATT VELA [address] [place], [address], [facility] 4 11:40:21 Pain in lumbar spine 040794268 Active 2023 WYATT VELA [address] [place], [address], [facility] 4 11:52:21 Acute bronchit is 44088472 Active 2023 WYATT VELA [address] [place], [address], [facility] 4 11:53:29 COVID-19 473893790 Active 2023 WYATT VELA [address] [place], [address], [facility] 4 10:18:07 Osteopen ia 393919916 Active 2017 Not Available [facility] 15:23:27 Degenera tion of interver tebral disc 18510539 Active 2017 lumbar,s acral ( Dr. Casillas) Not Available [facility] 15:23:27 Eczema 85000688 Active 2017 Not Available [facility] 15:23:27 Migraine 41647692 Completed 201711/15/2021 Ranjit Foster, DO [address] [place], [address], [facility] 2 14:27:24 Gastroes ophageal reflux disease 692057500 Completed 201711/15/2021 with related chronic cough Ranjit RickAustin Foster DO [address] [place], [address], [facility] 2 14:27:17 Plantar fasciiti s 318276271 Completed 201711/15/2021 Ranjit Foster, DO [address] [place] [address], [address], [facility] 2 14:27:43 Polyp of colon 98586707 Active 2017 Not Available [facility] 1 15:23:27 Mitral valve regurgit ation 40232654 Active 2017 tricuspi d regurgit ation Not Available [facility] 1 15:23:27 Restless legs 60822654 Completed 201711/15/2021 Ranjit Foster, DO [address] [place] [address], [address], [facility] 2 14:28:43 Essentia l hyperten noemi 25078292 Active 2017 Not Available [facility] 1 15:23:27 Hypercho lesterol emia 98857368 Active 2017 Not Available [facility] 1 15:23:27 Asthma 783312482 Completed 201705/08/2019 Ranjti Foster, DO [address] [place] [address], [address], [facility] 9 09:22:38 Problem Notes None recorded. Procedures Surgical History None recorded. Imaging Results Imaging Date Name Status LastModified by Organiz ation Details LastModified Time 10/01/2024 fluoroscopy (PROC) completed [email or web address] [facility] (Medical Records) [address] [place] [address], [address], 10/06/2024 08:29:35 Procedure Notes None recorded. Medical Equipment None Reported. [...] 1 TABLET(5 MG) BY MOUTH TWICE DAILY 2024 active Not Available Not Available Not Avai lable Flonase Allergy Relief 50 mcg/actuat ion nasal spray,susp ension [place] 1 spray every day by intranasa l [...] Updated DateTime 4 161.93 cm 33.9 kg/m2 81232.1 g 66 /min 97 % 97 % 120 mm[Hg] 76 mm[Hg] Mitch Brush [facility] 4 08:57:30 Date Recorded Body height Body mass index (BMI) Body weight Heart rate Oxygen saturation Oxygen saturation in Arterial blood by Pulse oximetry Systolic blood pressure Diastolic blood pressure Provider Name and Address Organization Details Last Updated DateTime 4 161.93 cm 33.9 kg/m2 41152.1 g 60 /min 97 % 97 % 120 mm[Hg] 78 mm[Hg] Stephanie Dominique [facility] 4 11:27:05 Date Recorded Body height Body mass index (BMI) Body weight Heart rate Oxygen saturation Oxygen saturation in Arterial blood by Pulse oximetry Systolic blood pressure Diastolic blood pressure Provider Name and Address Organization Details Last Updated DateTime 4 161.93 cm 33.9 kg/m2 33058.1 g 60 /min 98 % 98 % 120 mm[Hg] 64 mm[Hg] Stephanie Dominique [facility] Internal [facility] 4 10:50:07 Date Recorded Body height Body mass index (BMI) Body weight Heart rate Oxygen saturation Oxygen saturation in Arterial blood by Pulse oximetry Systolic blood pressure Diastolic blood pressure Provider Name and Address Organization Details Last Updated DateTime 4 161.93 cm 33.4 kg/m2 45955.3 3 g 56 /min 98 % 98 % 122 mm[Hg] 76 mm[Hg] Mitch Brush [facility] 4 12:01:52 Social History Question Answer Notes LastModified by Organizat ion Details LastModified Time Tobacco Smoking Status Never Smoker Not Available [facility] 07/19/2020 03:36:24 What Is Your Level Of Alcohol Consumption? None [id number] Information not available 07/19/2020 What Is Your Level Of Caffeine Consumption? Moderate 2 Cups Per Day [id number] Information not available 07/19/2020 What Is Your Occupation? Retired [id number] Information not available 07/19/2020 What Was The Date Of Your Most Recent Tobacco Screening? 07/06/2024 [email or web address] Information not available 07/06/2024 Do You Use Any Illicit Or Recreational Drugs? No [email or web address] Information not available 11/15/2021 Do You Or Have You Ever Used Any Other Forms Of Tobacco Or Nicotine? No [email or web address] Information not available 03/08/2023 Sex: Unknown Functional Status Question Answer Note LastModified by Organizat ion Details LastModified Time What is your exercise level? Occasional walking [id number] Information not available 07/19/2020 Mental Status None recorded. Family History Nothing Reported. Medical History No medical history recorded. Gynecological HistoryNo gynecological history recorded. Obstetrics History GPAL:G 0 P 0 0 0 0 Immunizations Vaccine Type Date Status Note Provider Nam e and Address Organization Details Recorded Time Influenza, split virus, quadrivalent, preservative 1 [facility] 13:41:11 COVID-19, mRNA, LNP-S, PF, 100 mcg/0.5mL dose or 50 mcg/0.25mL dose [facility] 15:28:26 zoster live 9 chrisotph magallanes [facility] 11/15/2021 15:14:14 Pneumococcal conjugate PCV 13 [facility]/15[facility]2021 15:15:39 Influenza, split virus, quadrivalent, preservative 9 christoph magallanes [facility] Internal [facility] 06/08/2019 08:39:43 Influenza, split virus, quadrivalent, preservative 0 christoph magallanes [facility] 06/14/2020 13:52:15 pneumococcal polysaccharide PPV23 9 christoph magallanes [facility] 11/15/2021 15:15:23 Tdap 8 christoph magallanes [facility] 05/06/2018 08:39:28 COVID-19, mRNA, LNP-S, PF, 100 mcg/0.5mL dose or 50 mcg/0.25mL dose 1 completed Rhiannon magallanes [facility] 10/21/2020 09:02:37 COVID-19, mRNA, LNP-S, PF, 100 mcg/0.5mL dose or 50 mcg/0.25mL dose 1 completed Rhiannon magallanes [facility] 11/14/2020 15:46:25 Influenza, split virus, quadrivalent, preservative 8 completed Rhiannon magallanes [facility] 05/06/2018 08:39:05 Past Encounters Encounter ID Performer Location Encounter Start Date Encounter Closed Date Diagnosis/Indication Diagnosis SNOMED-CT Code Diagnosis ICD10 Code Diagnosis Note [id number] [facility] [address] [facility],[place] [address] 01/22/2018 14:56:18 01/22/2018 15:43:27 Asthma 433204732 J45.909 Essential hypertension 80357945 I10 d/c amlodipine start diltiazem f/u in 1 month for BP recheck Peripheral edema 7734288 00 R60.9 b/l - likely related to amlodipine possibly related to venous stasis, though there are no chronic signs of stasis [id number] December [facility] [address] [facility],[place] [address] 03/26/2018 15:14:38 03/26/2018 15:51:20 Asthma 541266925 J45.909 she does get some exertional shortness of breath with stairs/hil ls. Essential hypertension 61446393 I10 well controlled continue diltiazem Peripheral edema 3316985 00 R60.9 d/c amlodipine did not make noticeable difference low suspicion of dvt, will check ddimer compressio n, elevation, low sodium diet [id number] [facility] Internal [facility] [address] [facility],[place] [address] 04/29/2018 08:48:39 04/29/2018 12:17:46 Adult health examination 376665432 Z00.00 doing excellent no further edema tolerates diltiazem 120 reviewed lab all wnl mammo sched for oct Active or passive immunization 154422762 Z23 pneumovax tdap will look to get Screening for osteoporosis 538131521 Z13.820 bmd ordered Eczema 33436729 L30.9 [place] [id number] Ranjit Foster DO [facility] [address] [facility],[place] [address] 08/22/2018 09:04:01 08/22/2018 11:55:16 Asthma 571778290 J45.909 relates does have exert dyspnea Essential hypertension 33427899 I10 here for bp check and is doing ok Insomnia 332741959 G47.0 0 will start with melatonin and vallerian root Hypercholesterolemia 136 96716 E78.00 stable [place] [id number] Ranjit Foster DO [facility] [address] [facility] [address] 10/31/2018 08:47:40 10/31/2018 09:38:11 Insomnia 374838899 G47.00 will start with melatonin and vallerian root Essential hypertension 23754343 I10 here for bp check and is doing ok Hypercholesterolemia 136 54608 E78.00 stable and will cont current tx Burn 839221442 T30.0 discussed local treatment wound is almost healed [id number] April Velasquez NP, S [facility] [address] [facility] [address] 01/19/2019 11:07:13 01/19/2019 12:17:44 Cough 54123476 R05 If no relief will check CXR Insomnia 352191171 G47.0 0 on temazepam Hypercholesterolemia 136 19372 E78.00 labs completed 10/2018, follow Osteopenia 364339111 M85 .9 reviewed improvemen t in lumbar spine Essential hypertension 20575474 I10 [id number] Ranjit Foster DO [facility] [address] [facility] [address] [address] 05/08/2019 08:47:50 05/08/2019 09:45:13 Essential hypertension 40880257 I10 here for bp check and is doing ok Shoulder pain 50288941 M 25.519 pian seems to be in the ant bicep tendon area and then secondary muscle issues [id number] [facility] [address] [facility] [address] [address] 06/15/2019 15:05:35 06/15/2019 16:03:29 Essential hypertension 63236804 I10 here for bp check and is doing ok Neck pain 48265583 M54.2 [id number] Elle [facility] [address] [facility] [address] [address] 10/06/2019 13:46:47 10/06/2019 14:43:10 Essential hypertension 36887799 I10 not well controlled Gastroesop hageal reflux disease 482509802 K21.9 quiet Obstructiv e sleep apnea syndrome 20953469 G47.33 currently untreated may be worsened by her weight gain Dyspnea on exertion 6084 5006 R06.09 asthma vs fluid retention Weight gain 6543198 R63. 5 ? water weight Chronic cough 76832123 R 05 ? cough variant asthma will give bronchodil ator Insomnia 852819902 G47.0 0 sleep is stable without meds at present [id number] [facility] [address] [facility] [address],[place] [address] 10/30/2019 13:47:55 10/30/2019 15:12:26 Essential hypertension 81092715 I10 improved with increased dose of cartia Gastroesop hageal reflux disease 231502076 K21.9 quiet Obstructiv e sleep apnea syndrome 07542574 G47.33 currently untreated may be worsened by her weight gain Dyspnea on exertion 6084 5006 R06.09 feels this is better, xr and echo was fine Weight gain 7989728 R63. 5 has improved, started watching her diet especially the junk food Chronic cough 57469071 R 05 asthma - unlikley no response to breo or proairLPR unlikely - had a pH probe which was negative in the past,post nasal drip possible - trial flonase + allergy meds and suggest seeing ENT if that fails Insomnia 004334569 G47.0 0 sleep is stable without meds at present [id number] WYATT VELA [facility] [address] [facility] [address],[place] [address] 05/09/2020 10:53:35 05/09/2020 12:10:00 Cyst of abdomen 278802573 R19.00 will check on US to see if anything going on Essential hypertension 50256057 I10 BP is excellent today Hypercholesterolemia 136 45210 E78.00 needs lipid re check for annual exam Vitamin D deficiency 347 71348 E55.9 will re check vitamin D level Insomnia 409384101 G47.0 0 will try trazodone and see if she is less drowsy with this than with the tanzepam [id number] Ranjit Foster DO [facility] [address] [facility] [address] [address] 05/27/2020 10:55:31 05/27/2020 14:01:01 Essential hypertension 26871316 I10 here for bp check and is doing ok Adult heal th examination 384010446 Z00.00 doing excellent no further edema tolerates diltiazem 120 reviewed lab all wnl mammo sched for oct Active or passive immunization 413677501 Z23 pneumovax done tdap had no issue needs influ [place] bcutaneous tissue of abdominal wall 6050368860 9335333 R22.2 [id number] WYATT VELA [facility] [address] [facility] [address],[place] [address] 06/20/2020 11:04:13 06/20/2020 12:33:38 Consultation 14518519 Z00.00 the patient wanted to know what her results indicated will review report when she comes in [id number] WYATT VELA [facility] [address] [facility] [address] [address] 07/13/2020 09:50:26 07/13/2020 10:53:35 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 Chicas and have pt fu with them [id number] WYATT VELA [facility] [address] [facility] [address], [address] [facility] [place] [address] 08/16/2020 10:31:09 08/16/2020 13:34:37 Cough 38670200 R05 will try allergy medication and see if improvemen t Insomnia 621727572 G47.0 0 doing well on trazodone [id number] [facility] Internal [facility] [address] [facility] [address] [address] 10/21/2020 08:56:36 10/21/2020 10:43:03 Abdominal pain 32890941 R10.9 plan to have her stop the simvastati n will have her cut down dramatical ly on dairy we will order the CT abd Essential hypertension 87064314 I10 here for bp check and is doing ok Gastroesop hageal reflux disease 961796975 K21.9 she will cont the omeprazole Hypercholesterolemia 136 25431 E78.00 stable but given abd sympt we will have her hold the simvastati n Insomnia 168679653 G47.0 0 alll her otc supp have been stooppped and this has helped a great deal and shee is finally sleeping [id number] [facility] Internal Medicine [address] [facility] [address] [address] 11/11/2020 11:57:08 11/11/2020 12:41:11 Left lower quadrant pain 012981067 R10.[address] exam [place] [id number] 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.0 has very distinct point tenderness T 9 -8 lateral rib at the costal chondral junctionwe will get xray and start treatment with diclofenac gel and tablet Had a chat to patient 18 5200708 Z71.9 discussed the 3rd dose of covid vaccine Insomnia 038420999 G47.0 0 nothing has helped and she is getting frustrated will try benadryl warned about lorazepam [id number] Rnajit Foster DO [facility] [address] [facility],[place] [address] 05/24/2021 08:51:46 05/24/2021 09:34:26 Essential hypertension 55461067 I10 here for bp check and is doing ok but is sl elevated we will have her check at home and we are going to see her back in a month Gastroesop hageal reflux disease 028532932 K21.9 she will cont the omeprazole Laryngopha ryngeal reflux 706950537 K21.9 believe is the culprit for the cough so we will cont omeprazole [id number] WYATT VELA [facility] [address] [facility],[place] [address] 07/10/2021 10:00:53 07/10/2021 10:51:33 Essential hypertension 35839900 I10 BP is elevated Edema of l ower extremity 202877456 R60.0 will fu with vascular referral and furosemide in the meantime Insomnia 592231095 G47.0 0 given instructio n for use of the [place] [id number] [facility] [address] [facility],[place] [address] 07/18/2021 11:20:07 07/18/2021 12:06:40 Edema of lower extremity 501412624 R60.0 will fu with STAT US r/o DVT left leg [id number] WYATT VELA [facility] [address] [facility],[place] [address] 08/09/2021 09:20:03 08/09/2021 12:01:47 Hypercholesterolemia 15578602 E78.2 stable Essential hypertension 19473845 I10 BP is fine today Insomnia 959533344 G47.0 0 will continue Costal chondritis 279245 04 M94.0 sounds like costal chondritis based on symptom presensati on and that fact in started before surgery comes in flares not constant [id number] WYATT VELA [facility] [address] [facility] [address],[place] [address] 11/03/2021 10:48:21 11/03/2021 14:23:29 Essential hypertension 38314685 I10 will add carvedilol on to her medication listwould like to avoid diuretic as she is already taking lasix and she is 81 years old [id number] Ranjit Foster DO [facility] [address] [facility] [address],[place] [address] 11/15/2021 13:47:40 11/15/2021 14:44:35 Active or passive immunization 460633745 Z23 pneumovax done tdap had no issue needs influ Adult heal th examination 046642191 Z00.00 doing excellent no further edema tolerates diltiazem 120 reviewed lab all wnl except her vit d is 16 she needs to take supplememn t fo r 3 months mammo sched for oct Essential hypertension 03458474 I10 here for bp check and is doing ok but is sl elevated we will have her check at home and we are going to see her back in a monthsat echo in detail [id number] WYATT VELA [facility] [address] [facility] [address],[place] [address] 04/04/2022 10:59:09 04/04/2022 13:21:57 Active or passive immunization [id number] Z23 patient advised she is due for shingles Atrial fibrillation 4943 6004 I48.0 will send referral to make sure they have the informatio n [id number] Ranjit Foster DO [facility] [address] [facility] [address],[place] [address] 05/25/2022 07:57:21 05/25/2022 11:41:19 Atrial fibrillation 94397264 I48.0 cardiovert ed and doing okwe will need to see her in a couple weekswill get minimal ekg strip while here Essential hypertension 67720461 I10 here for bp check and is doing ok but is sl elevated we will have her check at home and we are going to see her back in a monthsat echo in detail Obstructiv e sleep apnea syndrome 56445811 G47.33 no issues Cough 79082252 R05.9 ongoing for the last 2 monthsalle rgies for cause of post nasal will ask her to take zyrtec [id number] Ranjit Foster DO [facility] [address] [facility] [address],[place] [address] 07/02/2022 11:56:32 07/02/2022 14:17:54 Active or passive immunization 494632245 Z23 patient due for flu & shingles Atrial fibrillation 4943 6004 I48.0 cardiovert ed and doing okwe will need to see her in a couple weekswill get minimal ekg strip while here Essential hypertension 41205539 I10 here for bp check and is doing ok but is sl elevated we will have her check at home and we are going to see her back in a monthsat echo in detail Cough 43472109 R05.9 ongoing for the last 2 monthsalle rgies for cause of post nasal had her to take zyrtec but this didnt helpshe states she is sick of coughingsh e has trelegy and albuterol at home and is not getting better with coughwe will have her try nasal flonasept willcall back with up to date [id number] Ranjit Foster DO [facility] [address] [facility],[place] [address] 08/24/2022 10:01:35 08/24/2022 11:33:47 Essential hypertension 67308685 I10 here for bp check and is doing ok but is sl elevated we will have her check at home and we are going to see her back in a monthsat echo in detail Atrial fibrillation 4943 6004 I48.0 has been checked and is doing great 13007 Ranjit Foster DO [facility] [address] [facility] [address], [place] [address] 01/15/2023 14:48:59 01/15/2023 15:59:39 Atrial fibrillation 20047932 I48.0 has been checked and is doing great Essential hypertension 76321333 I10 here for bp check and is doing ok but is sl elevated we will have her check at home and we are going to see her back in a monthre wed echo in detail Edema of l ower extremity 873954783 R60.0 Dyspnea on exertion 6084 5006 R06.09 Osteopenia 330641065 M85 .80 [id number] Ranjit Foster DO [facility] [address] [facility],[place] [address] [facility] [place] [address] 02/01/2023 07:56:21 02/04/2023 08:32:59 Essential hypertension 93159189 I10 here for bp check and is doing ok but is sl elevated we will have her check at home and we are going to see her back in a monthrevie wed echo in detail Edema of l ower extremity 156352809 R60.0 stable Aortic valve stenosis 60 628572 I35.0 echo shows only mild disease EF is 65% Osteopenia with high fracture risk 6391484146 58382 M85.80 reviewed bone density and we will cont to follow discussed fall risks 64388 WYATT VELA [facility] [address] [facility],[place] [facility] [place] [address] 03/08/2023 13:29:57 03/08/2023 15:44:38 Atrial fibrillation 63050904 I48.0 agreed to holter to determine how frequently she is in atrial fibrillati onswitch to simvastati n 20 mgcontinue on eliquis 22862 WYATT VELA [facility] [address] [facility],[place] [address] [facility] [place] [address] 05/22/2023 13:49:55 05/22/2023 15:00:49 Pain of left ankle joint 8016648772 1517938 M25.572 will set up with ankle XR left Pain of ri ght ankle joint 7062688622 8620107 M25.571 will set up ankle XR right [id number] WYATT VELA [facility] [address] [facility], [place] [address] 10/15/2023 08:47:16 10/15/2023 13:54:56 Abdominal pain 33796375 R10.[address], see if anything [id number] WYATT VELA [facility] [address] [facility],[place] [address] 11/08/2023 14:35:24 11/11/2023 14:15:07 Atrial fibrillation 00153864 I48.0 agreed to holter to determine how frequently she is in atrial fibrillati onswitch to simvastati n 20 mgcontinue on eliquis Low back pain 362783519 M54.51 will fu with second opinion for the arthritis treatment 466092 WYATT VELA [facility] [address] [facility],[place] [address] 01/14/2024 09:01:23 01/14/2024 09:49:48 Dizziness 156971009 R42 probably combinatio n of insomnia and low BP Dyspnea 032979862 R06.02 not cardiac Chronic cough 19059760 R 05.3 needs refill Insomnia 534173500 G47.0 0 will continue [id number] WYATT VELA [facility] [address] [facility],[place] [address] 01/31/2024 10:01:13 02/03/2024 12:05:51 Depression screening 812861898 Z13.31 negative Dizziness 320396864 R42 low BP defwill cut back her carvedilol 786273 WYATT VELA [facility] [address] [facility],[place] [address] 02/21/2024 09:20:50 02/21/2024 10:20:52 Edema of lower extremity 362694004 R60.0 stop combo pill drop to just the HTCZ 12.5 f/u in one weeks Essential hypertension 73981945 I10 will drop to the 12.5 mg carvedilol BID instead [id number] WYATT VELA [facility] [address] [facility],[place] [address] 02/28/2024 09:35:46 02/28/2024 14:48:19 Low back pain 879677277 M54.51 seeing PSSsuggest ed TENS unit, when she comes back it Essential hypertension 91281731 I10 BP is still greatwill fu with patient in a moswill keep an eye on her [id number] WYATT VELA [facility] [address] [facility] [address],[place] [address] 03/30/2024 08:52:43 2024 09:17:25 Atrial fibrillation 07476831 I48.0 stable Dizziness 353855237 R42 stable 620063 WYATT VELA [facility] [address] [facility] [address],[place] [address] 04/20/2024 11:08:24 04/20/2024 13:22:31 Acute gout 396872472 M10.072 will start on prednisone taper and check her uric acid levels Pain in lumbar spine 267 744720 M54.51 will fu with PSS 817239 WYATT VELA [facility] [address] [facility] [address],[place] [address] 04/28/2024 09:30:08 04/28/2024 16:08:03 Acute bronchitis 49798505 J20.8 will set up with rosanne lipscomb and cough suppressan t [id number] Ranjit Foster, [facility] [address] [facility] [address],[place] [address] 05/26/2024 10:41:14 05/26/2024 11:33:27 Active or passive immunization 188758762 Z23 patient due for flu & shingles Adult heal th examination 921407188 Z00.00 doing excellent no further edema tolerates diltiazem 120 reviewed lab all wnl except her vit d is 16 she needs to take supplememn t fo r 3 months mammo sched for oct Atrial fibrillation 4943 6004 I48.0 has been checked and is doing great Essential hypertension 61850279 I10 here for bp check and is doing ok but is sl elevated we will have her check at home and we are going to see her back in a monthre wed echo in detail Hypercholesterolemia 136 41210 E78.2 taking the the simvastati n Dyspnea on exertion 6084 5006 R06.09 she will start walking 10 min per day i believe a lot of this sob is deconditio sloan she has had a major cardiac work up and this was all normal [id number] DO [facility] [address] [facility] [address],[place] [address] 07/06/2024 11:47:10 07/06/2024 13:37:27 Chronic cough 33665567 R05.3 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 19910695 M51.[address] kong if this doesnt work out will try clara bennett Atrial fibrillation 0393 6004 I48.0 has been checked and is [...] Piña Member ID Guarantor Name 03/30/2024 1 [employer] MED[employer] ADVANTAGE PLAN (MEDICARE REPLACEMENT HMO) [id number] 1 Kathi Chan [id number] Kathi Chan 04/20/2024 1 [employer]AGE PLAN (MEDICARE REPLACEMENT HMO) [id number] 1 Kathi Chan [id number] Kathi Chan 04/28/2024 1 [employer]AGE PLAN (MEDICARE REPLACEMENT HMO) [id number] Kathi Chan [id number] Kathi Chan 05/26/2024 1 [employer]AGE PLAN (MEDICARE REPLACEMENT HMO) [id number] 1 Kathi Chan [id number] Kathi Chan 07/06/2024 1 [employer]AGE [employer]AN (MEDICARE REPLACEMENT HMO) [id number] 1 Kathi Chan [id number] Kathi Chan Notes Date Note Type Note [...] has no other concerns today WYATT VELA [address] [place], [address], [facility] 03/30/2024 09:17:14 4 text/html c/o swelling in the left big toe the patient reports that she developed acute onset, leg big toe pain and swellingwarm, red and very tender to the the patient last injection for her back was September in 2022talking to Dr. Tellez about getting an injectionwill have front office coordinator call about it since her insurance will pay for it, doesn't want the ablation will f/u with patient after we talk to there office WYATT VELA [address] [place], [address], [facility] 04/20/2024 11:54:38 4 text/html c/o sick symptoms The patient is participating in this appointment via telemedicine communication with a phone call/video calling service (Marker[employer])The patient consents to use of these platforms [...] with COVID results tomorrow WYATT VELA [address] [place], [address], [facility] 04/28/2024 11:59:06 4 text/html did ok fro the gout wondering about meds etcshe has had some exertional dyspnea has been ongoing for years Ranjit Foster DO [address] [place], [address], [facility] 05/26/2024 11:28:30 4 text/html Annual [...] hearing Vision:no vision problems Ranjit Foster DO [address] [place], [address], [facility] 05/26/2024 11:28:30 4 text/html here for follow upstates will be seeing dr kong next weekdiscussion re her vaccine she is up to datediscussion re her sleep and she has tried several diff medstold her she should not be afraid of taking a gummy Ranjit Foster DO [address] [place], [address], [facility] 07/06/2024 12:25:57 OBGyn Episode No OBEpisode recorded.
--- OUTSIDE RECORDS SUMMARY | 2024-11-11 12:55 | XMS_ITS ---
Author Organization [facility] Address [address] [place] [address] Care Team Providers Care Employee Welfare Manager Name Role Phone Ranjit Stephens MD Primary Care Provider Marciano Unger [phone] REASON FOR VISIT rs appt 08/31 Encounters Encounter Location Date Provider Diagnosis [address] [address] 05/22/2024 Marciano Mane Plan Of Treatment Next Appt Details Provider Name:Marciano Mane , 12/15/2024 08:45:00 AM, [address] [place], [address], Progress Notes * Anup HEBERTOB:1940 ([age] yo F)Acc No.[id number]:05/22/2024 Patient:?Kathi Hebert :1940???Age:84 Y???Sex:Female Address:[address] , [address], [place], [address] * true * Date:? Generated for Printi ng/Fajenng/eTransmitting on:?11/11/2024 12:55 PM EST
--- OUTSIDE RECORDS SUMMARY | 2024-11-11 12:55 | XMS_ITS | Patient Health Record ---
[facility] [place] Address [address] [place] [address] Care Team Providers Care Swatch Folder Name Role Phone Ranjit Stephens MD Primary Care Provider UnavailMarciano Villegas Unavailable [phone] Black, Sylvia Unavailable [phone] Hernandez Jones Unavailable [phone] Dixie Degroot Unavailable [phone] Allergies No Known Allergies Reason For Referral No Information Medications Medication SIG (Take, Route, Frequency, Duration) Notes Start Date End Date Status Omeprazole 20 MG 1 capsule 30 minutes before morning meal Orally Once a day for 30 day(s) Not-Taking Dilt-CD diltiazam Not-Taking Benadryl Allergy 25 MG 1 tablet at bedtime as needed Orally Once a day for 30 day(s) Not-Taking Triamterene-HCTZ 37.5-25 MG 1 tablet in the morning Orally Once a day for 30 day(s) Not-Taking Diclofenac Not-Takin g Simvastatin 20 MG as directed Orally Once a day Active Carvedilol 6.25 MG 1 tablet with food Orally Twice a day Active eliquis 5 mg as directed Activ e hydroCHLOROthiazide Active Flecainide Acetate A ctive Immunizations Vaccine Route Administration Date Status Comme [...] W/U Status Risk Notes Problem Atherosclerosis of [place] artery of both lower extremities, with unspecified presence of clinical manifestation (I70.203) Active confirmed Q7(A), Q8(2B), Q9(1B,2C) Vital Signs Blood pressure diastolic 60 mm Hg 09/01/2024 Height 5ft 2.5in in 09/01/2024 Blood pressure systolic 125 mm Hg 09/01/2024 Weight 172 lbs 09/01/2024 BMI 30.95 kg/m2 09/01/2024 Procedures Procedure Date Ordered Date Performed Result Body Sit e 54892-Nvkf Destruction, 1-14 01/06/2024 N/A 46202-QJONEJP NAIL, 1-5 09/01/2024 N/A 21414-VVHV SKIN LESIONS, OVER 4 09/01/2024 N/A E0347-NBPWUJYO DYSTROPHIC NAILS ANY # 09/01/2024 N/A Encounters Encounter Location Date Provider Diagnosis [address] [address] 11/20/2023 Hernandez Jones Pain in left foot M79.672 ; Tinea unguium B35.1 ; Pain in right toe(s) M79.674 ; Pain in left toe(s) M79.675 ; Ingrowing nail L60.0 ; Localized edema R60.0 ; Other viral warts B07.8 ; Pain in right foot M79.671 and Subungual exostosis of great toe M89.[address] [address] 01/06/2024 Sylvia Black Pain in right toe(s) M79.674 ; Subungual exostosis of great toe M89.9 and Other viral warts B07.[address] [address] 02/19/2024 Hernandez Jones Pain in left foot M79.672 ; Tinea unguium B35.1 ; Pain in right toe(s) M79.674 ; Pain in left toe(s) M79.675 ; Ingrowing nail L60.0 ; Localized edema R60.0 ; Other viral warts B07.8 ; Pain in right foot M79.671 and Subungual exostosis of great toe M89.[address] [address] 05/21/2024 Hernandez Jones Pain in left foot M79.672 ; Tinea unguium B35.1 ; Pain in right toe(s) M79.674 ; Pain in left toe(s) M79.675 ; Ingrowing nail L60.0 ; Localized edema R60.0 ; Other viral warts B07.8 ; Pain in right foot M79.671 and Subungual exostosis of great toe M89.[address] [address] 09/01/2024 Marciano Mane Atherosclerosis of [place] artery of both lower extremities, with unspecified presence of clinical manifestation I70.203 ; Tinea unguium B35.1 ; Pain in right toe(s) M79.674 and Pain in left toe(s) M79.[address] [address] 01/06/2024 Sylvia Storm [address] [address] 05/22/2024 Marciano Mane Assessments Encounter Date Diagnosis [...] Pain in left foot (ICD-10 - M79.672) 09/01/2024 Tinea unguium (ICD-10 - B35.1) 09/01/2024 Atherosclerosis of [place] artery of both lower extremities, with unspecified presence of clinical manifestation (ICD-10 - I70.203) Q7(A), Q8(2B), Q9(1B,2C) 09/01/2024 Pain in right toe(s) (ICD-10 - M79.674) 05/21/2024 Pain in right toe(s) (ICD-10 - M79.674) 01/06/2024 Other viral warts (ICD-10 - B07.8) 02/19/2024 Pain in right toe(s) (ICD-10 - M79.674) 11/20/2023 Pain in right toe(s) (ICD-10 - M79.674) 11/20/2023 Pain in left toe(s) (ICD-10 - M79.675) 02/19/2024 Pain in left toe(s) (ICD-10 - M79.675) 05/21/2024 Pain in left toe(s) (ICD-10 - M79.675) 09/01/2024 Pain in left toe(s) (ICD-10 - [...] X ray : Foot, right 3V 11/20/2023 79748-FQYCAAT NAIL, 1-5 09/01/2024 31264-Nskg Destruction, 1-14 01/06/2024 68848-FGSEFYI SKIN/TISSUE 02/04/2023 85795-XXUY SKIN LESIONS, OVER 4 09/01/20 24 H3795-MJBAGDJL DYSTROPHIC NAILS ANY # 74286,M4554-ESV TENDON SHEATH/LIGAMENT 0 01/04/2022 Next Appt Details Provider Name:Marciano Mane , 12/15/2024 08:45:00 AM, [address] [place], [address], Insurance Providers Payer Name Payer Address Payer Phone Subscriber Number Group Number Insured Name Patient Relationship to Insured Coverage Start Date Coverage End Date [employer]vantage [address] [place] [address] [id number] Kathi Chan Self - patient is the insured Medical (General) History Medical History History ICD Code Arthritis Back,Hip,and Knee pain Measles Chicken pox High blood pressure A-Fib Hypercholesterolemia Surgical History Surgery Date(Month/Year) colonoscopy Hospitalization History Reason Date(Month/Year) [facility] 10/2023 [facility] few hrs 03/2022
== END 2024-11-11 11:40 | disposition home or self-care (01) ==
PROVIDERS: PCP Internal Medicine; Visit Provider Internal Medicine
DX: M48.061 Spinal stenosis, lumbar region without neurogenic claudication (principal)
CPT/HCPCS: 99213

== ENCOUNTER → 2024-11-11 10:30 | Outpatient (BNVA) | payer MEDICARE, SELFPAY | PROVIDERS: PCP Internal Medicine; Visit Provider Internal Medicine | DX: M48.061 Spinal stenosis, lumbar region without neurogenic claudication (principal) | CPT/HCPCS: 99212 ==

== ENCOUNTER 2024-11-19 08:59 | Outpatient (REF) | payer MEDICARE, SELFPAY ==
--- NOTE | ~2024-11-19 | MR_ITS ---
EXAMINATION: MR LUMBAR SPINE WITHOUT CONTRAST CLINICAL INFORMATION: Spinal stenosis without neurogenic claudication. COMPARISON: None available. TECHNIQUE: MRI of the lumbar spine was obtained using routine sequences without contrast. FINDINGS: Last rib-bearing vertebra labeled T12. No gross bone marrow STIR signal abnormality. Multilevel disc desiccation and marginal osteophyte formation more conspicuous at L4-5 and L5-S1. Modic type II endplate changes at L5-S1. Bone marrow inhomogeneity. Focal hyperintense T2 signal in the posterior intervertebral disc L4-5 and L5-S1 likely annular fissures. Grade 1 anterolisthesis L4-5. Subtle grade 1 retrolisthesis L3-4. Conus medullaris ends at inferior endplate of L1 with normal signal. T12-L1: No disc herniation. Facet joint hypertrophy as well as ligamentum flavum. No central spinal canal or neuroforamina stenosis. L1-2: Broad-based disc bulging. Facet joint hypertrophy as well as ligamentum flavum. Reduced AP diameter of the thecal sac and the neural foramina. No compression upon neural elements. L2-3: Broad-based disc bulging. Facet joint and ligamentum flavum hypertrophy. Reduced AP diameter of the thecal sac and the neural foramina. L3-4: Broad-based disc bulging. Facet joint ligamentum flavum hypertrophy resulting in central spinal canal stenosis CSF effacement of the thecal sac and to a lesser extent bilateral neuroforamina stenosis. L4-5: Grade 1 anterolisthesis. Broad-based disc bulging. Facet joint and ligamentum flavum hypertrophy resulting in central spinal canal stenosis effacement of the CSF and bilateral neuroforamina narrowing. L5-S1: Broad-based disc bulging. Facet joint and ligamentum flavum hypertrophy. Reduced AP diameter of the thecal sac. Bilateral neuroforamina stenosis likely encroaching the exiting nerve roots. Fatty atrophy of the lower lumbar muscles. No prevertebral compartment hematoma, mass or fluid collection. Multifocal different sizes round fluid signal characteristic lesions in both kidneys, the largest in the corticomedullary junction of the left kidney. MR/MR lumbar spine wo con IMPRESSION: Multilevel thoracolumbar spondylosis resulting in central spinal canal stenosis at L3-4 and L4-5 and to a lesser extent bilateral neuroforamina stenosis from L2-3 to L5-S1 encroaching possibly compressing the neural elements. Grade 1 anterolisthesis L4-5 on a degenerative basis. Bilateral renal cysts. Electronically signed by: Madhav Baron MD 11/19/2024 10:31 AM ANGELA CLEMONS
--- OUTSIDE RECORDS SUMMARY | 2024-11-19 09:51 | XMS_ITS ---
Author Organization [facility] Address [address] [place] [address] Care Team Providers Care Ship Scraper Name Role Phone Ranjit Stephens MD Primary Care Provider Marciano Unger Unavailable [phone] Allergies No Known Allergies REASON FOR VISIT [...] W/U Status Risk Notes Problem Atherosclerosis of [place] artery of both lower extremities, with unspecified presence of clinical manifestation (I70.203) Active confirmed Q7(A), Q8(2B), Q9(1B,2C) Vital Signs Height 5ft 2.5in in 09/01/2024 Weight 172 lbs 09/01/2024 BMI 30.95 kg/m2 09/01/2024 Blood pressure systolic 125 mm Hg 09/01/20 24 Blood pressure diastolic 60 mm Hg 024 Procedures Procedure Date Ordered Date Performed Result Body Sit e 79190-MACTHRF NAIL, 1-5 09/01/2024 N/A 77110-SITV SKIN LESIONS, OVER 4 09/01/2024 N/A Q2238-GTKQDQFS DYSTROPHIC NAILS ANY # 09/01/2024 N/A Encounters Encounter Location Date Provider Diagnosis [facility] [place] [address] [place] [address] 09/01/2024 Marciano Mane Atherosclerosis of [place] artery of both lower extremities, with unspecified presence of clinical manifestation I70.203 ; Tinea unguium B35.1 ; Pain in right toe(s) M79.674 and Pain in left toe(s) M79.675 Assessments Encounter Date Diagnosis (ICD Code) Assessment Notes Treatment Notes Treatment Clinical Notes Section Notes 09/01/2024 Atherosclerosis of [place] artery of both lower extremities, with unspecified presence of clinical manifestation (ICD-10 - I70.203) Q7(A), Q8(2B), Q9(1B,2C) 09/01/2024 Tinea unguium (ICD-10 - B35.1) 09/01/2024 Pain in right toe(s) (ICD-10 - M79.674) 09/01/2024 Pain in left toe(s) (ICD-10 - M79.675) Plan Of Treatment Pending Test Test Name Order Date 39118-INFJBKC NAIL, 1-5 09/01/2024 78438-UHPF SKIN LESIONS, OVER 4 09/01/20 24 O9507-ENHXRNUH DYSTROPHIC NAILS ANY # Next Appt Details Follow Up: prn, Reason: Provider Name:Marciano Mane , 12/15/2024 08:45:00 AM, [address] [place], [address], Procedure Notes * Category Sub-Category Detail Notes [...] instrumentation by the physician of record - 75566, Q8 Debride Nails 1-5 Procedure: Due to [...] necessary to maintain effective symptomatic relief - 44614 Nail Reduction Nail Reduction (-27) Trimming o [...] * Anup HEBERTOB:1940 ([age] yo F)Acc No.[id number]:09/01/2024 Progress Note Patient:?Kathi HEBERT Provider:?Marciano Mane DPM :1940???Age:84 Y???Sex:Female D ate:09/01/2024 Address:[address] [place] [address] , [address] [address] Pcp:Ranjit Stephens MD Subjective: * Chief Complaints: [...] yes, walking. ?Marital status: . 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 * Medications:?TakinghydroCHLO ROthiazide Flecainide Acetate Carvedilol [...] Assessment: 1.?Tinea unguium - B35.1???2 .?Atherosclerosis of [place] artery of both lower extremities, with unspecified presence of clinical manifestation - I70.203 (Primary)???Notes :Q7(A), Q8(2B), Q9(1B,2C)???3.?Pain in right toe(s) - M79.674???4.?Pain in left toe(s) - M79.675??? Plan: * Treatment: 2.?Tinea unguium?Procedure: 65676-ULUEWZE NAIL, 1-5 * Procedures:?Debride Nails 1-5:?Procedure:?Due to [...] necessary to maintain effective symptomatic relief - 82820.?Keratoma Treatment:?Parring or Cutting of Benign Hyperkeratotic Lesion(s)?(-57) [...] instrumentation by the physician of record - 19764, Q8.?Nail Reduction:?Nail Reduction?(-27) Trimming of all dystrophic [...] DYSTROPHIC NAILS ANY #, Modifiers: XS , R086888 DEBRIDE NAIL, 1-5, Modifiers: XS 93731 TRIM SKIN LESIONS, OVER 4, Modifiers: XS , Q8 * Follow Up:?prn * Images: * Sign off status: Completed true * Provider:?Marciano Mane DPM Date:?2023 Generated for Anam monge/Chalo/Wallace on:?11/19/2024 09:50 AM EST History and Physical Notes * HPI (History of Present Illness) Category Sub-Category Detail Notes Category Not es At Risk footcare Pt States Last PCP Visit: Date: Examination Category Sub-Category Detail Notes Category Not [...]
--- OUTSIDE RECORDS SUMMARY | 2024-11-19 09:51 | XMS_ITS | Patient Health Record ---
Author Organization [facility] [place] Address [address] [place] [address] Care Team Providers Care Customer Advocate Name Role Phone Ranjit Stephens MD Primary Care Provider UnavailMarciano Villegas Unavailable [phone] Black, Sylvia Unavailable [phone] Hernandez Jones Unavailable [phone] Dixie Degroot Unavailable [phone] Allergies No Known Allergies Reason For Referral [...] W/U Status Risk Notes Problem Atherosclerosis of platinum artery of both lower extremities, with unspecified presence of clinical manifestation (I70.203) Active confirmed Q7(A), Q8(2B), Q9(1B,2C) Vital Signs Blood pressure diastolic 60 mm Hg 09/01/2024 Height 5ft 2.5in in 09/01/2024 Blood pressure systolic 125 mm Hg 09/01/2024 Weight 172 lbs 09/01/2024 BMI 30.95 kg/m2 09/01/2024 Procedures Procedure Date Ordered Date Performed Result Body Sit e 23951-Fagj Destruction, 1-14 01/06/2024 N/A 51935-YNAVHJA NAIL, 1-5 09/01/2024 N/A 42878-ZHOF SKIN LESIONS, OVER 4 09/01/2024 N/A W2524-CCXQBHCF DYSTROPHIC NAILS ANY # 09/01/2024 N/A Encounters Encounter Location Date Provider Diagnosis [address] [address] 11/20/2023 Hernandez Jones Pain in left foot M79.672 ; Tinea unguium B35.1 ; Pain in right toe(s) M79.674 ; Pain in left toe(s) M79.675 ; Ingrowing nail L60.0 ; Localized edema R60.0 ; Other viral warts B07.8 ; Pain in right foot M79.671 and Subungual exostosis of great toe M89.[address] [address] 01/06/2024 Sylvia Black Pain in right toe(s) M79.674 ; Subungual exostosis of great toe M89.9 and Other viral warts B07.[address] [address] 02/19/2024 Hernandez Jones Pain in left foot M79.672 ; Tinea unguium B35.1 ; Pain in right toe(s) M79.674 ; Pain in left toe(s) M79.675 ; Ingrowing nail L60.0 ; Localized edema R60.0 ; Other viral warts B07.8 ; Pain in right foot M79.671 and Subungual exostosis of great toe M89.[address] [address] 05/21/2024 Hernandez Jones Pain in left foot M79.672 ; Tinea unguium B35.1 ; Pain in right toe(s) M79.674 ; Pain in left toe(s) M79.675 ; Ingrowing nail L60.0 ; Localized edema R60.0 ; Other viral warts B07.8 ; Pain in right foot M79.671 and Subungual exostosis of great toe M89.[address] [address] 09/01/2024 Marciano Mane Atherosclerosis of platinum artery of both lower extremities, with unspecified presence of clinical manifestation I70.203 ; Tinea unguium B35.1 ; Pain in right toe(s) M79.674 and Pain in left toe(s) M79.[address] [address] 01/06/2024 Sylvia Storm [address] [address] 05/22/2024 Marciano Mane Assessments Encounter Date Diagnosis [...] unguium (ICD-10 - B35.1) 09/01/2024 Atherosclerosis of platinum artery of both lower extremities, with unspecified [...] X ray : Foot, right 3V 11/20/2023 97588-NMGZQAA NAIL, 1-5 09/01/2024 41611-Mvxk Destruction, 1-14 01/06/2024 51837-QWSFUZL SKIN/TISSUE 02/04/2023 27211-XQUH SKIN LESIONS, OVER 4 09/01/20 24 T1331-EBTBQJGA DYSTROPHIC NAILS ANY # 53772,D7910-HKS TENDON SHEATH/LIGAMENT 0 01/04/2022 Next Appt Details Provider Name:Marciano Mane , 12/15/2024 08:45:00 AM, [address] [place], [address], Insurance Providers Payer Name Payer Address Payer Phone Subscriber Number Group Number Insured Name Patient Relationship to Insured Coverage Start Date Coverage End Date [employer] [address] [place] [address] [phone] [id number] Kathi Chan Self - patient is the insured Medical (General) History Medical History History ICD Code Arthritis Back,Hip,and Knee pain Measles Chicken pox High blood pressure A-Fib Hypercholesterolemia Surgical History Surgery Date(Month/Year) colonoscopy Hospitalization History Reason Date(Month/Year) [facility] 10[facility]2023 [facility] few hrs 03/2022
--- OUTSIDE RECORDS SUMMARY | 2024-11-19 09:51 | XMS_ITS ---
Author Organization [facility] Address [address] [place] [address] Care Team Providers Care Line Crew Supervisor Name Role Phone Ranjit Stephens MD Primary Care Provider Marciano Unger [phone] REASON FOR VISIT rs appt 08/31 Encounters Encounter Location Date Provider Diagnosis [address] [address] 05/22/2024 Marciano Mane Plan Of Treatment Next Appt Details Provider Name:Marciano Mane , 12/15/2024 08:45:00 AM, [address] [place], [address], Progress Notes * Anup HEBERTOB:1940 ([age] yo F)Acc No.[id number]:05/22/2024 Patient:?Kathi Hebert :1940???Age:84 Y???Sex:Female Address:[address] , [address], [place], [address] * true * Date:? Generated for Printi ng/Fajenng/eTransmitting on:?11/19/2024 09:51 AM EST
--- OUTSIDE RECORDS SUMMARY | 2024-11-19 09:52 | XMS_ITS ---
Author Organization [facility] Address [address] [place] [address] Care Team Providers Care Durable Medical Equipment Technician Name Role Phone Kat GORDILLO, Ranjit Primary Care Provider Marciano Unger Unavailable [phone] Dixie Degroot [phone] Encounters Encounter Location Date Provider Diagnosis [address] [address] 08/31/2024 Dixie Degroot Plan Of Treatment Next Appt Details Provider Name:Marciano Mane , 12/15/2024 08:45:00 AM, [address] [place] [address], [address], Progress Notes * Anup HEBERTOB:1940 ([age] yo F)Acc No.[id number]:08/31/2024 Progress Note Patient:?Kathi HEBERT Provider:?Dixie Degroot DPM :1940???Age:84 Y???Sex:Female D ate:08/31/2024 Address:[address] [place], [place] [address]y [facility] , [address], [place] Pcp:Ranjit Stephens MD Subjective: * Chief Complaints: [...] DPM Date:?1 11/01/2023 Generated for Anam monge/Chalo/Wallace on:?11/19/2024 09:51 AM EST
--- OUTSIDE RECORDS SUMMARY | 2024-11-19 09:52 | XMS_ITS | Data Portability ---
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 Procedures None recorded. Surgeries None recorded. Imaging None recorded. Medication Orders codeine 10 mg-guaife nesin 100 mg/5 mL oral liquid 2023 [id number], [address], [place], [phone], 05/26/2024 10:48:08 Zithromax Z-Bora 250 mg tablet 2023 024 [facility] #[id number], [address], [place], [phone], 05/26/2024 10:47:58 prednison e 10 mg tablet 2023 [id number], [address], [place], [phone], 05/26/2024 10:48:26 Patient TargetsNo targets recorded. Patient Instructions Encounter Date Encounter Id Patient Instructions Last Modified By Organization Details Last Modified Time 05/26/2024 [id number] pulse oximetry* Not available 05/26/2024 11:27:21 07/06/2024 [id number] deciding about surgery for a herniated disc Not available 07/06/2024 12:25:32 pulse oximetry* Not available 07/06/2024 12:25:33 chronic cough: care instructions Not available 07/06/2024 12:25:32 Reason for Referral None Reported. Results Created Date Observation Date Name Description Value Unit Range Abnormal Flag Note LastModifiedBy Organization Detail LastModifiedTime 05/26/2005/26/2024 pulse oxime try* Result 98 Not Available [facility] [address], [place], [address], 05/25/2024 12:13:50 07/06/2007/06/2024 pulse oxime try* Result 98 Not Available [facility] [address], [place], [address], 06/17/2024 11:06:13 0110/01/2024 fluor oscop y (PROC ) No observ ation record ed. [email or web address] [facility] (Medical Records) [address], [place], [address], 10/06/2024 08:29:35 Result Notes None recorded. 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 WYATT VELA [address] [place] [address], [address], [facility] 1 09:46:57 Atrial fibrilla tion 54168042 Active 2021 WYATT VELA [address] [place] [address], [address], [facility] 2 11:24:00 Cough 48276993 Active 2021 Ranjit Foster DO [address] [place] [address], [address], [facility] 2 10:05:39 Edema of lower extremit y 881997164 Active 2022 Ranjit Foster DO [address] [place] [address], [address], [facility] 3 15:51:56 Dyspnea on exertion 71833568 Active 2022 Ranjit Foster DO [address] [place] [address], [address], [facility] 3 15:52:59 Aortic valve stenosis 16608704 Active 2022 Ranjit Foster, DO [address] [place], [address], [facility] 3 16:54:06 Osteopen ia with high fracture risk 2846602640 02451 Active 2022 Ranjit Foster, DO [address] [place], [address], [facility] 3 16:55:32 Insomnia 410675436 Active 2022 WYATT VELA [address] [place], [address], [facility] 3 08:27:45 Pain of left ankle joint 7001288850 6939462 Active 2022 WYATT VELA [address] [place], [address], [facility] 3 14:24:56 Pain of right knee joint 6279679098 16925 Active 2022 WYATT VELA [address] [place], [address], [facility] 3 14:25:18 Pain of right ankle joint 5942656658 5149190 Active 2022 WYATT VELA [address] [place], [address], [facility] 3 14:25:35 Abdomina l pain 76523023 Active 2023 WYATT VELA [address] [place], [address], [facility] 4 10:50:37 Low back pain 629690921 Active 2023 WYATT VELA [address] [place], [address], [facility] 4 15:10:55 Dizzines s 551419301 Active 2023 WYATT VELA [address] [place], [address], [facility] 4 09:13:58 Dyspnea 594929967 Active 2023 WYATT VELA [address] [place], [address], [facility] 4 09:14:10 Chronic cough 28097374 Active 2023 WYATT VELA [address] [place], [address], [facility] 4 09:18:24 Acute gout 744689936 Active 2023 WYATT VELA [address] [place], [address], [facility] 4 11:40:21 Pain in lumbar spine 773471517 Active 2023 WYATT VELA [address] [place], [address], [facility] 4 11:52:21 Acute bronchit is 18056947 Active 2023 WYATT VELA [address] [place], [address], [facility] 4 11:53:29 COVID-19 992042221 Active 2023 WYATT VELA [address] [place], [address], [facility] 4 10:18:07 Osteopen ia 791540561 Active 2017 Not Available [facility] 15:23:27 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 Casillas) Not Available [facility] 15:23:27 Eczema 25077518 Active 2017 Not Available [facility] 15:23:27 Migraine 42611759 Completed 201711/15/2021 Ranjit Foster, DO [address] [place], [address], [facility] 2 14:27:24 Gastroes ophageal reflux disease 310117752 Completed 201711/15/2021 with related chronic cough Ranjit RickAustin Foster DO [address] [place], [address], [facility] 2 14:27:17 Plantar fasciiti s 170255176 Completed 201711/15/2021 Ranjit Foster, DO [address] [place] [address], [address], [facility] 2 14:27:43 Polyp of colon 52356683 Active 2017 Not Available [facility] 1 15:23:27 Mitral valve regurgit ation 96647572 Active 2017 tricuspi d regurgit ation Not Available [facility] 1 15:23:27 Restless legs 65667715 Completed 201711/15/2021 Ranjit Foster, DO [address] [place] [address], [address], [facility] 2 14:28:43 Essentia l hyperten noemi 88221570 Active 2017 Not Available [facility] 1 15:23:27 Hypercho lesterol emia 04101561 Active 2017 Not Available [facility] 1 15:23:27 Asthma 696876286 Completed 201705/08/2019 Ranjit Foster, DO [address] [place] [address], [address], [facility] 9 09:22:38 Problem Notes None recorded. Procedures Surgical History None recorded. Imaging Results Imaging Date Name Status LastModified by Organiz ation Details LastModified Time 10/01/2024 fluoroscopy (PROC) completed [email or web address] [facility] (Medical Records) [address] [place] [address], [address], 10/06/2024 08:29:35 Procedure Notes None recorded. Medical [...] Relief 50 mcg/actuat ion nasal spray,susp ension [place] 1 spray every day by intranasa l [...] Updated DateTime 4 161.93 cm 33.9 kg/m2 71629.1 g 66 /min 97 % 97 % 120 mm[Hg] 76 mm[Hg] Mitch Brush [facility] 4 08:57:30 Date Recorded Body height Body mass index (BMI) Body weight Heart rate Oxygen saturation Oxygen saturation in Arterial blood by Pulse oximetry Systolic blood pressure Diastolic blood pressure Provider Name and Address Organization Details Last Updated DateTime 4 161.93 cm 33.9 kg/m2 23151.1 g 60 /min 97 % 97 % 120 mm[Hg] 78 mm[Hg] Stephanie Dominique [facility] 4 11:27:05 Date Recorded Body height Body mass index (BMI) Body weight Heart rate Oxygen saturation Oxygen saturation in Arterial blood by Pulse oximetry Systolic blood pressure Diastolic blood pressure Provider Name and Address Organization Details Last Updated DateTime 4 161.93 cm 33.9 kg/m2 99069.1 g 60 /min 98 % 98 % 120 mm[Hg] 64 mm[Hg] Setphanie Dominique [facility] Internal [facility] 4 10:50:07 Date Recorded Body height Body mass index (BMI) Body weight Heart rate Oxygen saturation Oxygen saturation in Arterial blood by Pulse oximetry Systolic blood pressure Diastolic blood pressure Provider Name and Address Organization Details Last Updated DateTime 4 161.93 cm 33.4 kg/m2 07423.3 3 g 56 /min 98 % 98 % 122 mm[Hg] 76 mm[Hg] Mitch Brush [facility] 4 12:01:52 Social History Question Answer Notes LastModified by Organizat ion Details LastModified Time Tobacco Smoking Status Never Smoker Not Available [facility] 07/19/2020 03:36:24 What Is Your Level Of Alcohol Consumption? None [id number] Information not available 07/19/2020 What Is Your Level Of Caffeine Consumption? Moderate 2 Cups Per Day [id number] Information not available 07/19/2020 What Is Your Occupation? Retired [id number] Information not available 07/19/2020 What Was The Date Of Your Most Recent Tobacco Screening? 07/06/2024 [email or web address] Information not available 07/06/2024 Do You Use Any Illicit Or Recreational Drugs? No [email or web address] Information not available 11/15/2021 Do You Or Have You Ever Used Any Other Forms Of Tobacco Or Nicotine? No [email or web address] Information not available 03/08/2023 Sex: Unknown Functional Status Question Answer Note LastModified by Organizat ion Details LastModified Time What is your exercise level? Occasional walking [id number] Information not available 07/19/2020 Mental Status None recorded. Family History Nothing Reported. Medical History No medical history recorded. Gynecological HistoryNo gynecological history recorded. Obstetrics History GPAL:G 0 P 0 0 0 0 Immunizations Vaccine Type Date Status Note Provider Nam e and Address Organization Details Recorded Time Influenza, split virus, quadrivalent, preservative [facility] 13:41:11 COVID-19, mRNA, LNP-S, PF, 100 mcg/0.5mL dose or 50 mcg/0.25mL dose [facility] 15:28:26 zoster live 9 christoph magallanes [facility] 11/15/2021 15:14:14 Pneumococcal conjugate PCV 13 [facility]15[facility]21 15:15:39 Influenza, split virus, quadrivalent, preservative 9 christoph magallanes [facility] Internal [facility] 06/08/2019 08:39:43 Influenza, split virus, quadrivalent, preservative 0 christoph magallanes [facility] 06/14/2020 13:52:15 pneumococcal polysaccharide PPV23 9 christoph magallanes [facility] 11/15/2021 15:15:23 Tdap 8 christoph magallanes [facility] 05/06/2018 08:39:28 COVID-19, mRNA, LNP-S, PF, 100 mcg/0.5mL dose or 50 mcg/0.25mL dose 1 completed Rhiannon magallanes [facility] 10/21/2020 09:02:37 COVID-19, mRNA, LNP-S, PF, 100 mcg/0.5mL dose or 50 mcg/0.25mL dose 1 completed Rhiannon magallanes [facility] 11/14/2020 15:46:25 Influenza, split virus, quadrivalent, preservative 8 completed Rhiannon magallanes [facility] 05/06/2018 08:39:05 Past Encounters Encounter ID Performer Location Encounter Start Date Encounter Closed Date Diagnosis/Indication Diagnosis SNOMED-CT Code Diagnosis ICD10 Code Diagnosis Note [id number] [facility] [address] [facility],[place] [address] 01/22/2018 14:56:18 01/22/2018 15:43:27 Asthma 780588427 J45.909 Essential hypertension 08213647 I10 d/c amlodipine start diltiazem f/u in 1 month for BP recheck Peripheral edema 2400950 00 R60.9 b/l - likely related to amlodipine possibly related to venous stasis, though there are no chronic signs of stasis [id number] December [facility] [address],[place] [address] 03/26/2018 15:14:38 03/26/2018 15:51:20 Asthma 759167303 J45.909 she does get some exertional shortness of breath with stairs/hil ls. Essential hypertension 11421140 I10 well controlled continue diltiazem Peripheral edema 7432153 00 R60.9 d/c amlodipine did not make noticeable difference low suspicion of dvt, will check ddimer compressio n, elevation, low sodium diet [id number] Ranjit Foster [facility] Internal [facility] [address] [facility],[place] [address] 04/29/2018 08:48:39 04/29/2018 12:17:46 Adult health examination 094691126 Z00.00 doing excellent no further edema tolerates diltiazem 120 reviewed lab all wnl mammo sched for oct Active or passive immunization 177118403 Z23 pneumovax tdap will look to get Screening for osteoporosis 627039004 Z13.820 bmd ordered Eczema 77069185 L30.9 [place] [id number] Ranjit Foster DO [facility] [address] [facility] [address] 08/22/2018 09:04:01 08/22/2018 11:55:16 Asthma 161089968 J45.909 relates does have exert dyspnea Essential hypertension 85566074 I10 here for bp check and is doing ok Insomnia 865381592 G47.0 0 will start with melatonin and vallerian root Hypercholesterolemia 136 48195 E78.00 stable and [place] cont [place] [id number] Ranjit Foster DO [facility] [address] [facility] [address] 10/31/2018 08:47:40 10/31/2018 09:38:11 Insomnia 029455962 G47.00 will start with melatonin and vallerian root Essential hypertension 58539554 I10 here for bp check and is doing ok Hypercholesterolemia 136 67329 E78.00 stable and will cont current tx Burn 628676092 T30.0 discussed local treatment wound is almost healed [id number] April Velasquez NP, S [facility] [address] [facility] [address] 01/19/2019 11:07:13 01/19/2019 12:17:44 Cough 35666907 R05 If no relief will check CXR Insomnia 885686058 G47.0 0 on temazepam Hypercholesterolemia 136 44577 E78.00 labs completed 10/2018, follow Osteopenia 172298148 M85 .9 reviewed improvemen t in lumbar spine Essential hypertension 44656829 I10 [id number] Ranjit Foster DO [facility] [address] [facility] [address] [address] 05/08/2019 08:47:50 05/08/2019 09:45:13 Essential hypertension 42439420 I10 here for bp check and is doing ok Shoulder pain 96973646 M 25.519 pian seems to be in the ant bicep tendon area and then secondary muscle issues [id number] Ranjit Foster [facility] [address] [facility] [address] [address] 06/15/2019 15:05:35 06/15/2019 16:03:29 Essential hypertension 74184780 I10 here for bp check and is doing ok Neck pain 52733514 M54.2 [id number] Elle [facility] [address] [facility] [address] [address] 10/06/2019 13:46:47 10/06/2019 14:43:10 Essential hypertension 45751143 I10 not well controlled Gastroesop hageal reflux disease 808440165 K21.9 quiet Obstructiv e sleep apnea syndrome 64074841 G47.33 currently untreated may be worsened by her weight gain Dyspnea on exertion 6084 5006 R06.09 asthma vs fluid retention Weight gain 2192527 R63. 5 ? water weight Chronic cough 76424086 R 05 ? cough variant asthma will give bronchodil ator Insomnia 306735213 G47.0 0 sleep is stable without meds at present [id number] [facility] [address] [facility] [address] [address] 10/30/2019 13:47:55 10/30/2019 15:12:26 Essential hypertension 38870660 I10 improved with increased dose of cartia Gastroesop hageal reflux disease 610340178 K21.9 quiet Obstructiv e sleep apnea syndrome 12332465 G47.33 currently untreated may be worsened by her weight gain Dyspnea on exertion 6084 5006 R06.09 feels this is better, xr and echo was fine Weight gain 4821423 R63. 5 has improved, started watching her diet especially the junk food Chronic cough 99969035 R 05 asthma - unlikley no response to breo or proairLPR unlikely - had a pH probe which was negative in the past,post nasal drip possible - trial flonase + allergy meds and suggest seeing ENT if that fails Insomnia 561895262 G47.0 0 sleep is stable without meds at present [id number] [address] [facility] Medicine [address] [facility] [address],[place] [address] 05/09/2020 10:53:35 05/09/2020 12:10:00 Cyst of abdomen 601164969 R19.00 will check on US to see if anything going on Essential hypertension 81138220 I10 BP is excellent today Hypercholesterolemia 136 78141 E78.00 needs lipid re check for annual exam Vitamin D deficiency 347 71398 E55.9 will re check vitamin D level Insomnia 423150771 G47.0 0 will try trazodone and see if she is less drowsy with this than with the tanzepam [id number] Ranjit Foster DO [facility] Medicine [address] [facility] [address] [address] 05/27/2020 10:55:31 05/27/2020 14:01:01 Essential hypertension 64417006 I10 here for bp check and is doing ok Adult heal th examination 982729053 Z00.00 doing excellent no further edema tolerates diltiazem 120 reviewed lab all wnl mammo sched for oct Active or passive immunization 767578038 Z23 pneumovax done tdap had no issue needs influ Mass of ivey bcutaneous tissue of abdominal wall 3078339712 3156182 R22.2 [id number] WYATT V[address] [facility] Internal Medicine [address] [facility] [address] [address] 06/20/2020 11:04:13 06/20/2020 12:33:38 Consultation 90332596 Z00.00 the patient wanted to know what her results indicated will review report when she comes in [id number] [address]YATT [address] 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 Chicas and have pt fu with them [id number] [facility] [address] [facility] [address], [address] [facility] [address] 08/16/2020 10:31:09 08/16/2020 13:34:37 Cough 82320306 R05 will try allergy medication and see if improvemen t Insomnia 067138289 G47.0 0 doing well on trazodone [id number] Ranjit Foster [facility] [address] [facility] [address] [address] 10/21/2020 08:56:36 10/21/2020 10:43:03 Abdominal pain 74378477 R10.9 plan to have her stop the simvastati n will have her cut down dramatical ly on dairy we will order the CT abd Essential hypertension 08473757 I10 here for bp check and is doing ok Gastroesop hageal reflux disease 588651504 K21.9 she will cont the omeprazole Hypercholesterolemia 136 29393 E78.00 stable but given abd sympt we will have her hold the simvastati n Insomnia 227208499 G47.0 0 alll her otc supp have been stooppped and this has helped a great deal and shee is finally sleeping [id number] Ranjit Foster [facility] [address] [facility] [address] [address] 11/11/2020 11:57:08 11/11/2020 12:41:11 Left lower quadrant pain 935597114 R10.[address] exam [place] [id number] Ranjit Foster [facility] Medicine [address] [facility] [address], [place] [address] 05/05/2021 11:55:12 05/05/2021 14:29:13 Costal chondritis 13835502 M94.0 has very distinct point tenderness T 9 -8 lateral rib at the costal chondral junctionwe will get xray and start treatment with diclofenac gel and tablet Had a chat to patient 18 7660354 Z71.9 discussed the 3rd dose of covid vaccine Insomnia 768173572 G47.0 0 nothing has helped and she is getting frustrated will try benadryl warned about lorazepam [id number] Ranjit Foster DO [facility] Internal Medicine [address] [facility],[place] [address] 05/24/2021 08:51:46 05/24/2021 09:34:26 Essential hypertension 83505150 I10 here for bp check and is doing ok but is sl elevated we will have her check at home and we are going to see her back in a month Gastroesop hageal reflux disease 810674078 K21.9 she will cont the omeprazole Laryngopha ryngeal reflux 480633829 K21.9 believe is the culprit for the cough so we will cont omeprazole [id number] WYATT VELA [facility] Internal [facility] [address] [facility],[place] [address] 07/10/2021 10:00:53 07/10/2021 10:51:33 Essential hypertension 35832098 I10 BP is elevated Edema of l ower extremity 488326072 R60.0 will fu with vascular referral and furosemide in the meantime Insomnia 938753226 G47.0 0 given instructio n for use of the [place] [id number] [facility] Internal Medicine [address] [facility],[place] [address] 07/18/2021 11:20:07 07/18/2021 12:06:40 Edema of lower extremity 398554758 R60.0 will fu with STAT US r/o DVT left leg [id number] WYATT VELA [facility] Internal [facility] [address] [facility],[place] [address] 08/09/2021 09:20:03 08/09/2021 12:01:47 Hypercholesterolemia 05994897 E78.2 stable Essential hypertension 35116729 I10 BP is fine today Insomnia 622528262 G47.0 0 will continue Costal chondritis 833259 04 M94.0 sounds like costal chondritis based on symptom presensati on and that fact in started before surgery comes in flares not constant [id number] [address] [facility] Internal Medicine [address] [facility] [address],[place] [address] 11/03/2021 10:48:21 11/03/2021 14:23:29 Essential hypertension 71680344 I10 will add carvedilol on to her medication listwould like to avoid diuretic as she is already taking lasix and she is 81 years old [id number] Ranjit Foster DO [facility] Internal [facility] [address] [facility] [address],[place] [address] 11/15/2021 13:47:40 11/15/2021 14:44:35 Active or passive immunization 202081874 Z23 pneumovax done tdap had no issue needs influ Adult heal th examination 792543824 Z00.00 doing excellent no further edema tolerates diltiazem 120 reviewed lab all wnl except her vit d is 16 she needs to take supplememn t fo r 3 months mammo sched for oct Essential hypertension 60344491 I10 here for bp check and is doing ok but is sl elevated we will have her check at home and we are going to see her back in a monthsat echo in detail [id number] WYATT VELA [facility] [address] [facility] [address] [address] 04/04/2022 10:59:09 04/04/2022 13:21:57 Active or passive immunization 918572161 Z23 patient advised she is due for shingles Atrial fibrillation 4943 6004 I48.0 will send referral to make sure they have the informatio n [id number] Ranjit Foster DO [facility] Internal Medicine [address] [facility] [address],[place] [address] 05/25/2022 07:57:21 05/25/2022 11:41:19 Atrial fibrillation 78347868 I48.0 cardiovert ed and doing okwe will need to see her in a couple weekswill get minimal ekg strip while here Essential hypertension 79230305 I10 here for bp check and is doing ok but is sl elevated we will have her check at home and we are going to see her back in a monthsat echo in detail Obstructiv e sleep apnea syndrome 64122916 G47.33 no issues Cough 72657325 R05.9 ongoing for the last 2 monthsalle rgies for cause of post nasal will ask her to take zyrtec [id number] Ranjit Foster DO [facility] Internal Medicine [address] [facility] [address],[facility] [place] [address] 07/02/2022 11:56:32 07/02/2022 14:17:54 Active or passive immunization [id number] Z23 patient due for flu & shingles Atrial fibrillation 4943 6004 I48.0 cardiovert ed and doing okwe will need to see her in a couple weekswill get minimal ekg strip while here Essential hypertension 84625786 I10 here for bp check and is doing ok but is sl elevated we will have her check at home and we are going to see her back in a monthsat echo in detail Cough 39770683 R05.9 ongoing for the last 2 monthsalle rgies for cause of post nasal had her to take zyrtec but this didnt helpshe states she is sick of coughingsh e has trelegy and albuterol at home and is not getting better with coughwe will have her try nasal flonasept willcall back with up to date [id number] Ranjit Foster DO [facility] Internal Medicine [address] [facility],[place] [address] 08/24/2022 10:01:35 08/24/2022 11:33:47 Essential hypertension 78123653 I10 here for bp check and is doing ok but is sl elevated we will have her check at home and we are going to see her back in a monthsat echo in detail Atrial fibrillation 4943 6004 I48.0 has been checked and is doing great [id number] Ranjit Foster DO [facility] Internal Medicine [address] [facility] [address], [place] [address] 01/15/2023 14:48:59 01/15/2023 15:59:39 Atrial fibrillation 74466647 I48.0 has been checked and is doing great Essential hypertension 04081322 I10 here for bp check and is doing ok but is sl elevated we will have her check at home and we are going to see her back in a monthre wed echo in detail Edema of l ower extremity 056015744 R60.0 Dyspnea on exertion 6084 5006 R06.09 Osteopenia 039994231 M85 .80 [id number] Ranjit Foster DO [facility] Internal Medicine [address] [facility],[place] [facility] [address] 02/01/2023 07:56:21 02/04/2023 08:32:59 Essential hypertension 35397948 I10 here for bp check and is doing ok but is sl elevated we will have her check at home and we are going to see her back in a monthrevie wed echo in detail Edema of l ower extremity 697544948 R60.0 stable Aortic valve stenosis 60 808841 I35.0 echo shows only mild disease EF is 65% Osteopenia with high fracture risk 1975058987 19624 M85.80 reviewed bone density and we will cont to follow discussed fall risks [id number] [address] [facility] Internal Medicine [address] [facility],[place] [facility] [address] 03/08/2023 13:29:57 03/08/2023 15:44:38 Atrial fibrillation 27333311 I48.0 agreed to holter to determine how frequently she is in atrial fibrillati onswitch to simvastati n 20 mgcontinue on eliquis [id number] WYATT VELA [facility] Internal Medicine [address] [facility],[place] [facility] [address] 05/22/2023 13:49:55 05/22/2023 15:00:49 Pain of left ankle joint 4433726342 6436066 M25.572 will set up with ankle XR left Pain of ri ght ankle joint 1690531698 4026124 M25.571 will set up ankle XR right [id number] WYATT VELA [facility] [address] [facility], [facility] [address] 10/15/2023 08:47:16 10/15/2023 13:54:56 Abdominal pain 56382400 R10.[address], see if anything [id number] WYATT VELA [facility] Internal Medicine [address] [facility],[place] [address] 11/08/2023 14:35:24 11/11/2023 14:15:07 Atrial fibrillation 56607589 I48.0 agreed to holter to determine how frequently she is in atrial fibrillati onswitch to simvastati n 20 mgcontinue on eliquis Low back pain 012422645 M54.51 will fu with second opinion for the arthritis treatment [id number] WYATT VELA [facility] [address] [facility],[place] [address] 01/14/2024 09:01:23 01/14/2024 09:49:48 Dizziness 047523944 R42 probably combinatio n of insomnia and low BP Dyspnea 866228587 R06.02 not cardiac Chronic cough 48079193 R 05.3 needs refill Insomnia 608571389 G47.0 0 will continue [id number] WYATT VELA [facility] [address] [facility],[place] [address] 01/31/2024 10:01:13 02/03/2024 12:05:51 Depression screening 176417267 Z13.31 negative Dizziness 740234317 R42 low BP defwill cut back her carvedilol [id number] WYATT VELA [facility] [address] [facility],[place] [address] 02/21/2024 09:20:50 02/21/2024 10:20:52 Edema of lower extremity 976728569 R60.0 stop combo pill drop to just the HTCZ 12.5 f/u in one weeks Essential hypertension 29341600 I10 will drop to the 12.5 mg carvedilol BID instead [id number] WYATT VELA [facility] [address] [facility],[place] [address] 02/28/2024 09:35:46 02/28/2024 14:48:19 Low back pain 133521691 M54.51 seeing PSSsuggest ed TENS unit, when she comes back it Essential hypertension 05225214 I10 BP is still greatwill fu with patient in a moswill keep an eye on her [id number] WYATT VELA [facility] Internal Medicine [address] [facility] [address],[place] [address] 03/30/2024 08:52:43 2024 09:17:25 Atrial fibrillation 26932277 I48.0 stable Dizziness 695556226 R42 stable [id number] WYATT VELA [facility] Internal Medicine [address] [facility] [address],[place] [address] 04/20/2024 11:08:24 04/20/2024 13:22:31 Acute gout 460015189 M10.072 will start on prednisone taper and check her uric acid levels Pain in lumbar spine 267 996499 M54.51 will fu with PSS [id number] WYATT VELA [facility] Internal Medicine [address] [facility] [address],[place] [address] 04/28/2024 09:30:08 04/28/2024 16:08:03 Acute bronchitis 03716614 J20.8 will set up with rosanne lipscomb and cough suppressan t [id number] Ranjit Foster, [facility] Internal Medicine [address] [facility] [address],[place] [facility] [place] [address] 05/26/2024 10:41:14 05/26/2024 11:33:27 Active or passive immunization 537284305 Z23 patient due for flu & shingles Adult heal th examination 471690566 Z00.00 doing excellent no further edema tolerates diltiazem 120 reviewed lab all wnl except her vit d is 16 she needs to take supplememn t fo r 3 months mammo sched for oct Atrial fibrillation 4943 6004 I48.0 has been checked and is doing great Essential hypertension 12840006 I10 here for bp check and is doing ok but is sl elevated we will have her check at home and we are going to see her back in a monthre wed echo in detail Hypercholesterolemia 136 23646 E78.2 taking the the simvastati n Dyspnea on exertion 6084 5006 R06.09 she will start walking 10 min per day i believe a lot of this sob is deconditio sloan she has had a major cardiac work up and this was all normal [id number] DO [facility] [address] [facility] [address],[place] [address] 07/06/2024 11:47:10 07/06/2024 13:37:27 Chronic cough 51507652 R05.3 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 44766349 M51.[address] kong if this doesnt work out will try clara bennett Atrial fibrillation 8453 6004 I48.0 has been checked and is [...] - MEDICARE ADVANTAGE PLAN (MEDICARE REPLACEMENT HMO) [id number] 1 Kathi Chan [id number] Kathi Chan 04/20/2024 1 [employer] - MEDICARE ADVANTAGE PLAN (MEDICARE REPLACEMENT HMO) [id number] 1 Kathi Chan [id number] Kathi Chan 04/28/2024 1 [employer] - MEDICARE ADVANTAGE PLAN (MEDICARE REPLACEMENT HMO) [id number] 1 Kathi Chan [id number] Kathi Chan 05/26/2024 1 [employer] - MEDICARE ADVANTAGE PLAN (MEDICARE REPLACEMENT HMO) [id number] 1 Kathi Chan [id number] Kathi Chan 07/06/2024 1 [employer] - MEDICARE ADVANTAGE PLAN (MEDICARE REPLACEMENT HMO) [id number] 1 Kathi Chan [id number] Kathi Chan Notes Date Note Type Note [...] no other concerns today WYATT VELA [address] [place], [address], [facility] Internal Medicine 03/30/2024 09:17:14 4 text/html c/o swelling in the left big toe the patient reports that she developed acute onset, leg big toe pain and swellingwarm, red and very tender to the the patient last injection for her back was September in 2022talking to Dr. Tellez about getting an injectionwill have ict help desk technician call about it since her insurance will pay for it, doesn't want the ablation will f/u with patient after we talk to there office WYATT VELA [address] [place], [address], [facility] Internal Medicine 04/20/2024 11:54:38 4 text/html c/o sick symptoms The patient is participating in this appointment via telemedicine communication with a phone call/video calling service ([employer])The patient consents to use of these platforms [...] with COVID results tomorrow WYATT VELA [address] [place], [address], [facility] Internal Medicine 04/28/2024 11:59:06 4 text/html did ok fro the gout wondering about meds etcshe has had some exertional dyspnea has been ongoing for years Ranjit Foster DO [address] [place], [address], [facility] Internal Medicine 05/26/2024 11:28:30 4 [...] Vision:no vision problems Ranjit Foster DO [address] [place], [address], [facility] Internal [facility] 05/26/2024 11:28:30 4 text/html here for follow upstates will be seeing dr kong next weekdiscussion re her vaccine she is up to datediscussion re her sleep and she has tried several diff medstold her she should not be afraid of taking a gummy Ranjit Foster DO [address] [place], [address], [facility] Internal Medicine 07/06/2024 12:25:57 OBGyn Episode No OBEpisode recorded.
== END 2024-11-19 09:00 | disposition home or self-care (01) ==
LOC: HO.MRI 08:59
PROVIDERS: PCP Internal Medicine; Visit Provider Internal Medicine
DX: M48.061 Spinal stenosis, lumbar region without neurogenic claudication (principal)
CPT/HCPCS: 72148

== ENCOUNTER → 2024-11-19 09:06 | Outpatient (BNV) | payer MEDICARE, SELFPAY | PROVIDERS: PCP Internal Medicine; Visit Provider Radiology Diagnostic Radiology | DX: M48.061 Spinal stenosis, lumbar region without neurogenic claudication (principal); M47.895 Other spondylosis, thoracolumbar region | CPT/HCPCS: 72148 ==